=== PATIENT | female | born 1995 | race African-American/Black ===

== ENCOUNTER 2024-07-29 10:48 | Inpatient (IN) | payer MEDICAID, OTHER ==
[~2024-07-29] VITALS: Ht 165.1 cm; Wt 70.0 kg
[2024-07-29 11:09] LABS: Basophils # (auto) 0 10 ^3/uL (0-0.2); Basophils % (auto) 0.3 % (0.0-2.0); Eosinophils # (auto) 0.1 10 ^3/uL (0-0.8); Hemoglobin 9.6 g/dL (12.2-16.2); Mean Corpuscular Volume 79.9 fL (80.0-100.0)
[2024-07-29 11:11] LABS: Eosinophils % (auto) 0.7 % (0.0-7.0); Hematocrit 29.1 % (36.0-46.0); Lymphocytes # (auto) 0.9 10 ^3/uL (0.4-5.4); Lymphocytes % (auto) 10.8 % (10.0-50.0); Mean Corpuscular Hemoglobin 26.5 pg (28.0-32.0); Mean Corpuscular Hgb Conc. 33.1 g/dL (32.0-36.0); Monocytes # (auto) 0.4 10 ^3/uL (0-1.3); Monocytes % (auto) 5.5 % (0.0-12.0); Neutrophils # (auto) 6.6 10 ^3/uL (1.6-8.6); Neutrophils % (auto) 82.7 % (37.0-80.0); Red Blood Cells 3.64 10^6/uL (4.0-5.20); Red Cell Distribution Width 17.9 % (11.8-14.3); White Blood Cell 7.9 10^3/uL (4.4-10.8)
[2024-07-29 11:16] LABS: Platelet Count (auto) 846 10^3/uL (140-450)
--- NOTE | 2024-07-29 11:22 | ED.PDOC ---
History of Present Illness HPI Comments 29F presents to the ER w/ recently delivered on July 02 at [facility] and is having preeclampsia which all may be associated to the c/c of CP. Pt reports on the CP being located in the epigastric region as well as the RLQ area for the past 4 days. Pt states on also having N/V, and not being able to use the bathroom. Pt notes that the ABD and CP worsens when she is eating food. SHx of [place] Tooth Removal. Denies chills, fever, N/V/D, SOB, or other associated symptom's, modifiers, or recent injuries or sick contact at this time. Chief Complaint: Chest Pain Time Seen by MD: 11:05 Primary Care Provider: UNKNOWN Reviewed Notes: Nurses Notes, Medications, Allergies Allergies: Coded Allergies: NO KNOWN ALLERGIES (Unverified , 04/09/10) Information Source: Patient Mode of Arrival: Ambulatory Severity: Moderate Timing: Days Duration: Since onset, Days Prehospital treatment: None Past Medical History PAST MEDICAL HISTORY: Denies Surgical History (Other): [place] Tooth Removal CONSOLE MANAGER History: No Pertinent CONSOLE MANAGER History Family History Family History: Reviewed,noncontributory to illness, Unknown Social History Smoker: Non-Smoker Alcohol: Denies ETOH Use Drugs: Denies Drug Use Lives In: Home Constitutional: denies: chills, diaphoresis, fatigue, fever, malaise, sweats, weakness, others EENTM: denies: blurred vision, double vision, ear bleeding, ear discharge, ear drainage, ear pain, ear ringing, eye pain, eye redness, hearing loss, mouth pain, mouth swelling, nasal discharge, nose bleeding, nose congestion, nose pain, photophobia, tearing, throat pain, throat swelling, voice changes, others Respiratory: denies: cough, hemoptysis, orthopnea, SOB at rest, shortness of breath, SOB with excertion, stridor, wheezing, others Cardiovascular: reports: chest pain; denies: dizzy spells, diaphoresis, Dyspnea on exertion, edema, irregular heart beat, left arm pain, lightheadedness, palpitations, PND, syncope, others Gastrointestinal: reports: abdominal pain; denies: abdomen distended, blood streaked bowels, constipated, diarrhea, dysphagia, difficulty swallowing, hematemesis, melena, nausea, poor appetite, poor fluid intake, rectal bleeding, rectal pain, vomiting, others Genitourinary: denies: abnormal vagina bleeding, burning, dyspareunia, dysuria, flank pain, frequency, hematuria, incontinence, pain, , vagina discharge, urgency, others Neurological: denies: dizziness, fainting, headache, left sided numbness, left sided weakness, numbness, paresthesia, pre-existing deficit, right sided numbness, right sided weakness, seizure, speech problems, tingling, tremors, weakness, others Musculoskeletal: denies: back pain, gout, joint pain, joint swelling, muscle pain, muscle stiffness, neck pain, others Integumetry: denies: bruises, change in color, change in hair/nails, dryness, laceration, lesions, lumps, rash, wounds, others Allergic/Immunocompromised: denies: Difficulty Healing, Frequent Infections, Hives, Itching, others Hematologic/Lymphatic: denies: anemia, blood clots, easy bleeding, easy bruising, swollen glands, others Endocrine: denies: excessive hunger, excessive sweating, excessive thirst, excessive urination, flushing, intolerance to cold, intolerance to heat, unexplained weight gain, unexplained weight loss, others Psychiatric: denies: anxiety, bipolar disorder, depression, hopeless, panic disorder, schizophrenia, sleepless, suicidal, others All Other Systems: Reviewed and Negative Physical Exam Exam Comments Diffuse ABD pain General Appearance: No Apparent Distress, Normal HEENT: Normal ENT Inspection, Pharynx Normal, TMs Normal Neck: Full Range of Motion, Non-Tender, Normal, Normal Inspection Respiratory: Chest Non-Tender, Lungs Clear, No Accessory Muscle Use, No Respiratory Distress, Normal Breath Sounds Cardiovascular: No Edema, No JVD, No Murmur, No Gallop, Tachycardia Breast Exam: Deferred Gastrointestinal: Diffuse, Epigastric, No Organomegaly, Non Tender, No Pulsatile Mass, Normal Bowel Sounds, RLQ, Tenderness Genitalia: Deferred Pelvic: Deferred Rectal: Deferred Extremities: No calf tenderness, Normal capillary refill, Normal inspection, Normal range of motion, Non-tender, No pedal edema Musculoskeletal : Apperance: Normal Neurologic: Alert, endoscopy rn II-XII nml as Tested, No Motor Deficits, Normal Affect, Normal Mood, No Sensory Deficits Cerebellar Function: Normal Reflexes: Normal Skin: Dry, Normal Color, Warm Lymphatic: No Adenopathy Was a procedure done? Was a procedure done?: No Differential Dx Considerations may include: ecclampsia, HELLP syndrome, endometritis, postop pain, colitis, appendicitis, RPOC X-Ray, Labs, Meds, VS Vital Signs Date Time Temp Pulse Resp B/P (MAP) Pulse Ox O2 Delivery O2 Flow Rate FiO2 07/29/24 13:02 94 18 114/68 (83) 98 07/29/24 11:59 98.1 98 18 103/78 (86) 98 98.1 07/29/24 11:35 100 07/29/24 10:56 120 07/29/24 10:55 98.0 112 20 106/78 (87) 97 Lab Test 07/29/24 12:42 07/29/24 10:59 Range/Units Troponin I High Sensitivity < 3 L < 3 L </=34 ng/L White Blood Count 7.9 4.4-10.8 10^3/uL Red Blood Count 3.64 L 4.0-5.20 10^6/uL Hemoglobin 9.6 L 12.2-16.2 g/dL Hematocrit 29.1 L 36.0-46.0 % Mean Corpuscular Volume 79.9 L 80.0-100.0 fL Mean Corpuscular Hemoglobin 26.5 L 28.0-32.0 pg Mean Corpuscular Hemoglobin Concent 33.1 32.0-36.0 g/dL Red Cell Distribution Width 17.9 H 11.8-14.3 % Platelet Count 846 *H 140-450 10^3/uL Mean Platelet Volume 6.3 L 6.9-10.8 fL Neutrophils (%) (Auto) 82.7 H 37.0-80.0 % Lymphocytes (%) (Auto) 10.8 10.0-50.0 % Monocytes (%) (Auto) 5.5 0.0-12.0 % Eosinophils (%) (Auto) 0.7 0.0-7.0 % Basophils (%) (Auto) 0.3 0.0-2.0 % Neutrophils # (Auto) 6.6 1.6-8.6 10 ^3/uL Lymphocytes # (Auto) 0.9 0.4-5.4 10 ^3/uL Monocytes # (Auto) 0.4 0-1.3 10 ^3/uL Eosinophils # (Auto) 0.1 0-0.8 10 ^3/uL Basophils # (Auto) 0 0-0.2 10 ^3/uL Nucleated Red Blood Cells 0.0 % Platelet Estimate Markedly increased Anisocytosis (manual) Slight Microcytosis Slight Sodium Level 139 136-145 mmol/L Potassium Level 3.7 3.5-5.1 mmol/L Chloride Level 103 98-107 mmol/L Carbon Dioxide Level 26 20-31 mmol/L Anion Gap 10 5-15 Blood Urea Nitrogen 10 9-23 mg/dL Creatinine 0.75 0.550-1.02 mg/dL Glomerular Filtration Rate Calc 109 >90 mL/min BUN/Creatinine Ratio 13.3 10.0-20.0 Serum Glucose 87 74-106 mg/dL Calcium Level 10.3 8.7-10.4 mg/dL Total Bilirubin 0.6 0.2-1.0 mg/dL Aspartate Amino Transferase (AST) 17 13-40 U/L Alanine Aminotransferase (ALT) 21 7-40 U/L Alkaline Phosphatase 121 H 46-116 U/L Total Protein 7.7 5.7-8.2 g/dL Albumin 4.9 H 3.2-4.8 g/dL Lipase 28 12-53 U/L Current Medications Medications (Trade) Dose Ordered Sig/Robyn Route Start Time Stop Time Status Last Admin Sodium Chloride 1,000 ml @ 1,000 mls/hr Q1H ONCE IV 07/29/24 11:45 07/29/24 12:44 DC 07/29/24 11:45 Time of 1ST Reevaluation: 11:35 Reevaluation 1ST: Unchanged Patient Education/Counseling: Diagnosis, Treatment, Prognosis, Need For Follow Up Family Education/Counseling: Diagnosis, Treatment, Prognosis, Need For Follow Up Additional Information - I reviewed the following notes from patient's past medical encounters:06/11/11 - The following tests were ordered, and results were reviewed by me: (Labs, X- Ray, EKG): EKG, LAB, XY - I reviewed and agreed with the following test results read by other provider: X-ray, CT - I discussed treatments and results with medical personnel and:consultants, family pt presents with epigastric pain on swallowing, diffused abdominal pain. she has thrombocytosis, most likely an acute inflammatory marker, otherwise, her CT is nonspecific. appendicitis is not excluded, so she will be started on antibiotic and will have surgery consult, and be admitted for further workups Departure 1 Departure Time of Disposition: 14:49 Impression: Primary Impression: Abdominal pain Qualified Codes: R10.84 - Generalized abdominal pain Additional Impressions: Thrombocytosis Anemia Qualified Codes: D50.9 - Iron deficiency anemia, unspecified Disposition: ADMITTED INPATIENT Condition: Stable Discharged With: Self, Relative Critical Care Note Critical Care Time?: Yes (55 min-critical care time only) Critical care comment: due to concerns for deterioration of patient's condition, the care required my highest level of attention and readiness. i assessed the patient's condition, revieweed relavent documents, communicated with medical personnel, ordered the proper tests and treatments, reassed fro results and response to treatments, spoke to family and consultants and formulated a plan of care Stability Stability form required: No I personally scribed for MERNA DAVIES MD ([email or web address]) on 07/29/24 at 11:22. Electronically submitted by Hira Lentz ([email or web address]). I personally scribed for MERNA DAVIES MD ([email or web address]) on 07/29/24 at 11:37. Electronically submitted by Hira Lentz ([email or web address]). MERNA DAVIES MD Jul 29, 2024 11:22
[2024-07-29 11:23] LABS: Anisocytosis Slight; Platelet Estimate Markedly Increased
[2024-07-29 11:31] LABS: Alanine Aminotransferase 21 U/L (7-40); Anion Gap 10 (5-15); Aspartate Aminotransferase 17 U/L (13-40); BUN/Creatinine Ratio 13.3 (10.0-20.0); Bilirubin, Total 0.6 mg/dL (0.2-1.0); Blood Urea Nitrogen 10 mg/dL (9-23); Calcium 10.3 mg/dL (8.7-10.4); Carbon Dioxide 26 mmol/L (20-31); Chloride 103 mmol/L (98-107); Glucose 87 mg/dL (74-106); Potassium 3.7 mmol/L (3.5-5.1); Sodium 139 mmol/L (136-145); Total Protein 7.7 g/dL (5.7-8.2)
--- NOTE | 2024-07-29 11:31 | DVH ---
CHEST RADIOGRAPH Indication: CP Technique: Single frontal view of the chest was obtained COMPARISON: None FINDINGS: Lines and Tubes: None Lungs: Clear Pleura: No effusion. No pneumothorax. Cardiomediastinal contours: Unremarkable Bones: Unremarkable IMPRESSION: 1. No acute disease.
[2024-07-29 11:32] LABS: Albumin 4.9 g/dL (3.2-4.8); Alkaline Phosphatase 121 U/L (46-116)
[2024-07-29] MEDS: SODIUM CHLORIDE 0.9% 1,000 ML IV ONE (11:45)
[2024-07-29] MEDS: IOHEXOL 350 MG/ML 100ML IJ ONE (12:19)
--- NOTE | 2024-07-29 12:50 | DVH ---
INDICATION: epigastric pain TECHNIQUE: Multiple real-time sonographic images were obtained of the right upper quadrant. COMPARISON: None FINDINGS: Liver is normal, 15.8 cm No gallstones , common bile duct measures 6mm Normal pancreas Normal inferior vena cava No obstructive uropathy Right kidney measures 9.1 cm Anechoic structure with internal debris is noted in the right ovary. Right ovarian ultrasound recomme nded. Impression: No gallstones Right ovarian lesion with internal debris. Pelvic ultrasound recommended
--- NOTE | 2024-07-29 14:19 | DVH ---
Exam: CT CT CHEST/AB/PL W CON- IV ONLY History: POSSIBLE PE; ABDOMINAL PAIN Comparison Study: None available at time of dictation. TECHNIQUE: Multidetector CT of the chest, abdomen and pelvis with contrast. Axial, coronal and sagitt al multiplanar reformats were obtained from the axial data set by the technologist. Additional 3D maximum intensity projection images obtained and evaluated. Radiation Dose Information: CT Dose: CTDI volume is 9.54 mGy. Dose-length product is 707.14 mGy*cm FINDINGS: Chest: The thyroid gland is unremarkable. Heart size is within normal limits. No evidence of aortic aneurysm or dissection. No pulmonary embolism. Pulmonary trunk is normal in size. No significant mediastinal lymphadenopathy. No pneumothorax, pleural effusion or focal airspace consolidation. The soft tissues are unremarkable. No destructive osseous lesions are noted. Abdomen and pelvis: Mild splenomegaly. Otherwise, liver, spleen, pancreas and adrenal glands are unremarkable. 1.2 x 0.8 cm soft tissue density abutting the wall of the gallbladder adjacent to the liver with associated mi ld wall calcification. No CT evidence of acute cholecystitis. Kidneys, and ureters are unremarkable. Minimal wall thickening of the urinary bladder. Heterogeneous appearance of the uterus with 1.8 cm anterior lower uterine segment soft tissue density hypodense les ion which may represent a fibroid. The left ovary is unremarkable. There is increased vascularity ove r the expected region of the right ovary. There is a 3.1 x 3 cm cystic lesion within the right hemipe lvis with surrounding soft tissue thickening and fat stranding with the right ovary not well-visualiz ed. Complex ovarian cyst is within the differential. Mild gastric wall thickening with mild wall thickening of the proximal duodenum. Small bowel loops ar e fluid-filled and nondistended. The cecum appears to be mobile and positioned over the anterior abdo men at the level of the umbilicus with a tubular structure extending from the cecum to the area of ri ght pelvic complex cystic structure appendix is not definitely visualized. Moderate amount of fecal m aterial within the colon. Mild wall thickening of the ascending colon. Small amount of free fluid within the cul-de-sac. Mild mesenteric edema. No evidence of intraperitone al free air. No evidence of aortic aneurysm or dissection. Shotty mesenteric lymph nodes. There is diastasis recti of the umbilical region. Periumbilical Subcutaneous fat edema. Mild fat stra nding of the anterior pelvis. No evidence of acute osseous abnormalities. IMPRESSION: No evidence of acute intrathoracic abnormalities. No pulmonary embolism. There is a 3.1 x 3 cm cystic lesion within the right hemipelvis with surrounding soft tissue thickeni ng and fat stranding with the right ovary not well-visualized. Correlate for possible complex right ovarian cyst . Pelvic ultrasound is recommended for further evaluation. The appendix is also not well-visualized with mobile cecum and a tubular structure from the cecum ext ending to the cystic lesion within the right hemipelvis. Complicated acute appendicitis is within the differential. Mild wall thickening of the ascending colon which may be due to inadequate distention with colitis no t excluded. 1.2 x 0.8 cm soft tissue density abutting the wall of the gallbladder adjacent to the liver with asso ciated mild wall calcification. No CT evidence of acute cholecystitis. Right upper quadrant ultrasoun d is recommended for further evaluation. Mild wall thickening of the stomach and proximal duodenal with fluid-filled nondistended mid and dist al small bowel loops. Correlate for possible gastroenteritis. Trace amount of free fluid within the pelvis with mild mesenteric edema which may be from the right i ntrapelvic process. Diastasis recti with periumbilical nonspecific Subcutaneous fat edema. Heterogeneous appearance of the uterus with a possible lower uterine segment fibroid. Minimal wall thickening of the urinary bladder which may be due to inadequate distention. Correlatio n with urinalysis is recommended to exclude cystitis.
[2024-07-29] MEDS: cefTRIAXone 1GM/50ML D5W 50 ML IV ONE (15:11)
[2024-07-29] MEDS: MORPHINE SULFATE INJ 2 MG/ml SYRG IV ONE (15:26)
[2024-07-29] MEDS: ONDANSETRON HCL 4 MG/2 ML VIAL IV ONE (15:26)
--- NOTE | 2024-07-29 16:08 | ECG ---
[facility] Test Date: 2024-07-29 Test Time: 11:35:42 Pat Name: CRISTINA PICKARD Department: ER Room: [address] [place] [address] Gender: F Stress Analyst: SHYAM : 1995 Requested By: MONI AGUIRRE Order Number: [id number] Reading MD: Ambrosio Dick Measurements Intervals Roxana Rate: 100 P: 80 FL: 126 QRS: 74 QRSD: 83 T: 50 QT: 337 QTc: 435 Interpretive Statements Sinus tachycardia Baseline wander in lead(s) II,III,aVF,V6 Electronically Signed On 07-29-2024 20:00:04 PST by Ambrosio Dick Please click the below link to view image of tracing.
[2024-07-29 17:53] VITALS: PULSE 93; RESP 18; O2SAT 98
[2024-07-29] MEDS ORDERED: SODIUM CHLORIDE 0.9% 1,000 ML IV SCH (18:00)
[2024-07-29] MEDS ORDERED: ONDANSETRON HCL 4 MG/2 ML VIAL IV PRN (18:00)
[2024-07-29] MEDS ORDERED: ACETAMINOPHEN 325 MG TAB PO PRN (18:00)
[2024-07-29] MEDS: PANTOPRAZOLE 40 MG/10 ML VIAL INJ IV ONE (18:10)
[2024-07-29] MEDS: SODIUM CHLORIDE 0.9% 1,000 ML IV SCH (18:10)
--- NOTE | 2024-07-29 18:16 | DVHHP2 ---
History of Present Illness Reason for Visit: Abdominal pain History of Present Illness This is a 29F presents to the ER with recent delivered baby on July 02 at [facility] and is having abdominal pain associated with chest pain x4 days. She states that she was hospitalized at [facility] since July 02 and was recently discharge sometime last week with the same symptoms. She is concerned about her symptoms and would like to be further evaluated and treated. She denies experiencing these symptoms in the past, no recent injury or trauma, no recent changes in her diet, and sick contact with family and friends. She denies chills, fever, N/V/D, SOB, or other associated symptom's. The patient will be admitted under hospitalist care, the plan has been discussed with the patient in which all questions concerns have been addressed. Past Surgical History: None Family History: None Smoke: No ALCOHOL: none Drugs: None Lives: with Family Domestic Violence: Neg Review of Systems Cardiovascular: Chest Pain Gastrointestinal: Nausea, Vomiting, Abdominal Pain Allergies: Coded Allergies: NO KNOWN ALLERGIES (Unverified , 04/09/10) Medications Current Medications Medications Dose Ordered Sig/Robyn Route Start Time Stop Time Status Last Admin Dose Admin Ceftriaxone Sodium 50 ml @ 100 mls/hr DAILY@09 IV 07/30/24 09:00 UNV Sodium Chloride 1,000 ml @ 75 mls/hr [id number] IV 07/29/24 18:00 UNV Ondansetron HCl 4 mg Q4HP PRN IV 07/29/24 18:00 UNV Acetaminophen 650 mg Q6HP PRN PO 07/29/24 18:00 UNV Pantoprazole Sodium 40 mg DAILY IV 07/30/24 10:00 UNV Sodium Chloride 1,000 ml @ 75 mls/hr [id number] IV 07/29/24 18:00 UNV Ondansetron HCl 4 mg Q4HP PRN IV 07/29/24 18:00 UNV Acetaminophen 650 mg Q6HP PRN PO 07/29/24 18:00 UNV Exam Vital Signs Vital Signs Date Time Temp Pulse Resp B/P (MAP) Pulse Ox O2 Delivery O2 Flow Rate FiO2 07/29/24 17:53 93 18 98 Room Air* 0 21 07/29/24 17:52 115/72 (86) 07/29/24 11:59 98.1 98.1 General Appearance: Alert, Oriented X3, Cooperative, No acute distress HEENT: Atraumatic, PERRLA, Mucous membr. moist/pink Respiratory: Clear to auscultation, Normal air movement Cardiovascular: Regular rate, Normal S1, Normal S2, No murmurs Abdominal: Normal bowel sounds, Soft, No hepatospenomegaly, No masses Extremities: No clubbing, No cyanosis, No edema, Normal pulses, No tenderness/swelling Skin: No rashes, No breakdown Neuro: Normal gait, Normal speech, Strength at 5/5 X4 ext, Normal tone, Sensation intact, Cranial nerves 3-12 NL Psych/Mental Status: Mental status NL Labs/Xrays Labs Test 07/29/24 12:42 07/29/24 10:59 Range/Units Troponin I High Sensitivity < 3 L </=34 ng/L White Blood Count 7.9 4.4-10.8 10^3/uL Red Blood Count 3.64 L 4.0-5.20 10^6/uL Hemoglobin 9.6 L 12.2-16.2 g/dL Hematocrit 29.1 L 36.0-46.0 % Mean Corpuscular Volume 79.9 L 80.0-100.0 fL Mean Corpuscular Hemoglobin 26.5 L 28.0-32.0 pg Mean Corpuscular Hemoglobin Concent 33.1 32.0-36.0 g/dL Red Cell Distribution Width 17.9 H 11.8-14.3 % Platelet Count 846 *H 140-450 10^3/uL Mean Platelet Volume 6.3 L 6.9-10.8 fL Neutrophils (%) (Auto) 82.7 H 37.0-80.0 % Lymphocytes (%) (Auto) 10.8 10.0-50.0 % Monocytes (%) (Auto) 5.5 0.0-12.0 % Eosinophils (%) (Auto) 0.7 0.0-7.0 % Basophils (%) (Auto) 0.3 0.0-2.0 % Neutrophils # (Auto) 6.6 1.6-8.6 10 ^3/uL Lymphocytes # (Auto) 0.9 0.4-5.4 10 ^3/uL Monocytes # (Auto) 0.4 0-1.3 10 ^3/uL Eosinophils # (Auto) 0.1 0-0.8 10 ^3/uL Basophils # (Auto) 0 0-0.2 10 ^3/uL Nucleated Red Blood Cells 0.0 % Platelet Estimate Markedly increased Anisocytosis (manual) Slight Microcytosis Slight Sodium Level 139 136-145 mmol/L Potassium Level 3.7 3.5-5.1 mmol/L Chloride Level 103 98-107 mmol/L Carbon Dioxide Level 26 20-31 mmol/L Anion Gap 10 5-15 Blood Urea Nitrogen 10 9-23 mg/dL Creatinine 0.75 0.550-1.02 mg/dL Glomerular Filtration Rate Calc 109 >90 mL/min BUN/Creatinine Ratio 13.3 10.0-20.0 Serum Glucose 87 74-106 mg/dL Calcium Level 10.3 8.7-10.4 mg/dL Total Bilirubin 0.6 0.2-1.0 mg/dL Aspartate Amino Transferase (AST) 17 13-40 U/L Alanine Aminotransferase (ALT) 21 7-40 U/L Alkaline Phosphatase 121 H 46-116 U/L Total Protein 7.7 5.7-8.2 g/dL Albumin 4.9 H 3.2-4.8 g/dL Lipase 28 12-53 U/L ORDERING PHYSICIAN: MERNA DAVIES MD PROCEDURE(s): CAPIV - CT CHEST/AB/PL W CON- IV ONLY REASON: POSSIBLE PE; ABDOMINAL PAIN ORDER NUMBER(s): [id number], ACCESSION NUMBER(s): [id number] Exam: CT CT CHEST/AB/PL W CON- IV ONLY History: POSSIBLE PE; ABDOMINAL PAIN Comparison Study: None available at time of dictation. TECHNIQUE: Multidetector CT of the chest, abdomen and pelvis with contrast. Axial, coronal and sagittal multiplanar reformats were obtained from the axial data set by the technologist. Additional 3D maximum intensity projection images obtained and evaluated. Radiation Dose Information: CT Dose: CTDI volume is 9.54 mGy. Dose-length product is 707.14 mGy*cm FINDINGS: Chest: The thyroid gland is unremarkable. Heart size is within normal limits. No evidence of aortic aneurysm or dissection. No pulmonary embolism. Pulmonary trunk is normal in size. No significant mediastinal lymphadenopathy. No pneumothorax, pleural effusion or focal airspace consolidation. The soft tissues are unremarkable. No destructive osseous lesions are noted. Abdomen and pelvis: Mild splenomegaly. Otherwise, liver, spleen, pancreas and adrenal glands are unremarkable. 1.2 x 0.8 cm soft tissue density abutting the wall of the gallbladder adjacent to the liver with associated mild wall calcification. No CT evidence of acute cholecystitis. Kidneys, and ureters are unremarkable. Minimal wall thickening of the urinary bladder. Heterogeneous appearance of the uterus with 1.8 cm anterior lower uterine segment soft tissue density hypodense lesion which may represent a fibroid. The left ovary is unremarkable. There is increased vascularity over the expected region of the right ovary. There is a 3.1 x 3 cm cystic lesion within the right hemipelvis with surrounding soft tissue thickening and fat stranding with the right ovary not well-visualized. Complex ovarian cyst is within the differential. Mild gastric wall thickening with mild wall thickening of the proximal duodenum. Small bowel loops are fluid-filled and nondistended. The cecum appears to be mobile and positioned over the anterior abdomen at the level of the umbilicus with a tubular structure extending from the cecum to the area of right pelvic complex cystic structure appendix is not definitely visualized. Moderate amount of fecal material within the colon. Mild wall thickening of the ascending colon. Small amount of free fluid within the cul-de-sac. Mild mesenteric edema. No evidence of intraperitoneal free air. No evidence of aortic aneurysm or dissection. Shotty mesenteric lymph nodes. There is diastasis recti of the umbilical region. Periumbilical Subcutaneous fat edema. Mild fat stranding of the anterior pelvis. No evidence of acute osseous abnormalities. IMPRESSION: No evidence of acute intrathoracic abnormalities. No pulmonary embolism. There is a 3.1 x 3 cm cystic lesion within the right hemipelvis with surrounding soft tissue thickening and fat stranding with the right ovary not well- visualized. Correlate for possible complex right ovarian cyst . Pelvic ultrasound is recommended for further evaluation. The appendix is also not well-visualized with mobile cecum and a tubular structure from the cecum extending to the cystic lesion within the right hemipelvis. Complicated acute appendicitis is within the differential. Mild wall thickening of the ascending colon which may be due to inadequate distention with colitis not excluded. 1.2 x 0.8 cm soft tissue density abutting the wall of the gallbladder adjacent to the liver with associated mild wall calcification. No CT evidence of acute cholecystitis. Right upper quadrant ultrasound is recommended for further evaluation. Mild wall thickening of the stomach and proximal duodenal with fluid-filled nondistended mid and distal small bowel loops. Correlate for possible gastroenteritis. Trace amount of free fluid within the pelvis with mild mesenteric edema which may be from the right intrapelvic process. Diastasis recti with periumbilical nonspecific Subcutaneous fat edema. Heterogeneous appearance of the uterus with a possible lower uterine segment fibroid. Minimal wall thickening of the urinary bladder which may be due to inadequate distention. Correlation with urinalysis is recommended to exclude cystitis. ATED BY: SAKSHI MURRY DO DICTATED DATE/TIME: 07/29/241415 SIGNED BY: SAKSHI MURRY DO SIGNED DATE/TIME: 07/29/241415 CC: ORDERING PHYSICIAN: MERNA DAVIES MD PROCEDURE(s): GBUS - GALLBLADDER REASON: epigastric pain ORDER NUMBER(s): [id number], ACCESSION NUMBER(s): [id number] INDICATION: epigastric pain TECHNIQUE: Multiple real-time sonographic images were obtained of the right upper quadrant. COMPARISON: None FINDINGS: Liver is normal, 15.8 cm No gallstones , common bile duct measures 6mm Normal pancreas Normal inferior vena cava No obstructive uropathy Right kidney measures 9.1 cm Anechoic structure with internal debris is noted in the right ovary. Right ovarian ultrasound recommended. Impression: No gallstones Right ovarian lesion with internal debris. Pelvic ultrasound recommended ATED BY: IBAN RUSH MD DICTATED DATE/TIME: 07/29/247 SIGNED BY: IBAN RUSH MD SIGNED DATE/TIME: 07/29/24 1247 CC: ORDERING PHYSICIAN: MONI AGUIRRE MD PROCEDURE(s): CXRP - CHEST PORTABLE REASON: CP ORDER NUMBER(s): [id number], ACCESSION NUMBER(s): [id number] CHEST RADIOGRAPH Indication: CP Technique: Single frontal view of the chest was obtained COMPARISON: None FINDINGS: Lines and Tubes: None Lungs: Clear Pleura: No effusion. No pneumothorax. Cardiomediastinal contours: Unremarkable Bones: Unremarkable IMPRESSION: 1. No acute disease. ATED BY: IBAN RUSH MD DICTATED DATE/TIME: 07/29/24 112 SIGNED BY: IBAN RUSH MD SIGNED DATE/TIME: 07/29/241128 CC: Assessment/Plan Assessment/Plan Abdominal pain--patient complain of abdominal pain associated with chest pain and nausea x4 days Recently delivered baby on July 02 at [facility] Patient recently discharge from that facility sometime last week with the same symptoms Denies recent injury/trauma/sick contact with family and friends, changes in diet Admit to medical-surgical unit Reviewed CBC shows elevation of neutrophils and platelet count Cardiac enzyme negative x2 Lipase is normal Reviewed CTA shows questionable gastroenteritis Reviewed chest x-ray which is normal Reviewed gallbladder ultrasound which is normal Ordered pelvic ultrasound pending Consult OBGYN for evaluation and recommendation IV antiemetic as needed IV fluids IV Protonix now and daily thrombocytosis Continue to monitor Consider Hematology consult but this is likely due to recent delivery of baby DVT prophylaxis Reconcile home medication PUD prophylaxis Labs in a.m. Discussed plan of care with the patient in which all questions concerns have been addressed Plan discussed with: Patient My Orders Orders - ABILIO KHOURY [employer] Procedure Category Date Status Time Ceftriaxone 1gm/50ml PHA 07/30/24 Logged D5w (Rocephin) 09:00 Admit ADMIT 07/29/24 Transmitted 17:55 Sodium Chloride 0.9% PHA 07/29/24 Logged 18:00 Ondansetron Hcl PHA 07/29/24 Logged (Zofran) 18:00 Complete Blood Count LAB 07/30/24 Verified 04:00 Comprehensive LAB 07/30/24 Verified Metabolic Panel 04:00 Condition: Fair CRUZITO 07/29/24 In Process 17:55 Acetaminophen Tablet PHA 07/29/24 Logged (Tylenol Tablet) 18:00 Clear Liq Diet DIET 07/29/24 Transmitted Dinner Bedrest With Bathroom CRUZITO 07/29/24 In Process Privileg 17:55 Urinalysis LAB 07/29/24 Logged 17:59 Pelvic US 07/29/24 Logged 17:59 Pantoprazole PHA 07/29/24 Logged (Protonix) 18:00 Pantoprazole PHA 07/30/24 Logged (Protonix) 10:00 Admit ADMIT 07/29/24 Transmitted 17:59 Sodium Chloride 0.9% PHA 07/29/24 Logged 18:00 Ondansetron Hcl PHA 07/29/24 Logged (Zofran) 18:00 Acetaminophen Tablet PHA 07/29/24 Logged (Tylenol Tablet) 18:00 * Field Installer Consultation CONS 07/29/24 Transmitted 18:01 Date of Service: Jul 29, 2024 Billing Provider: ABILIO KHOURY Common Visit Codes: [id number] INP/OBS CARE (HIGH) ABILIO KHOURY Jul 29, 2024 18:16
--- NOTE | 2024-07-29 18:51 | DVH ---
INDICATION: Abdominal pain recent of baby TECHNIQUE: Multiple real-time grayscale transabdominal sonographic images along with color and duplex Doppler of the uterus and ovaries were obtained. COMPARISON: None FINDINGS: The uterus measures 11.6 x 7 x 6 cm cm. The endometrial stripe measures 0.75 cm. The right ovary measures 7 x 5.7 x 4.2 cm. Right ovarian volume is 8.6 cc. There is a 3.56 x 3.05 x 3.28 cm anechoic lesion in the right ovary most likely a follicle or cysts. The left ovary not visualized. Subsequent color and duplex Doppler interrogation of the ovaries demonstrated symmetric vascular flow to both ovaries, though this does not exclude the possibility of torsion due to the dual blood suppl y. IMPRESSION: 1. Enlarged right ovary with with debris and 0.5 by 3.3 cm anechoic lesion. 2. Mildly enlarged uterus
[2024-07-29 19:57] VITALS: PULSE 89; RESP 17; O2SAT 98
[2024-07-29] MEDS: MORPHINE SULFATE INJ 2 MG/ml SYRG IV PRN (20:24)
[2024-07-29 21:39] VITALS: BP 116/73; PULSE 96; RESP 18; TEMP 98.9; O2SAT 97
[2024-07-29 22:04] VITALS: BP 116/73; PULSE 96; RESP 18; TEMP 98.9; O2SAT 97
[2024-07-30 01:00] VITALS: BP 111/60; PULSE 90; RESP 16; TEMP 99.7; O2SAT 97
[2024-07-30 06:12] LABS: Alanine Aminotransferase 14 U/L (7-40); Albumin 4.3 g/dL (3.2-4.8); Alkaline Phosphatase 103 U/L (46-116); Anion Gap 10 (5-15); Aspartate Aminotransferase 13 U/L (13-40); BUN/Creatinine Ratio 10.4 (10.0-20.0); Bilirubin, Total 0.4 mg/dL (0.2-1.0); Blood Urea Nitrogen 8 mg/dL (9-23); Calcium 9.2 mg/dL (8.7-10.4); Carbon Dioxide 23 mmol/L (20-31); Chloride 107 mmol/L (98-107); Glucose 81 mg/dL (74-106); Potassium 3.5 mmol/L (3.5-5.1); Sodium 140 mmol/L (136-145); Total Protein 6.7 g/dL (5.7-8.2)
[2024-07-30 06:26] LABS: Basophils # (auto) 0 10 ^3/uL (0-0.2); Basophils % (auto) 0.2 % (0.0-2.0); Eosinophils # (auto) 0.1 10 ^3/uL (0-0.8); Eosinophils % (auto) 1.1 % (0.0-7.0); Hematocrit 25.1 % (36.0-46.0); Hemoglobin 8.1 g/dL (12.2-16.2); Lymphocytes % (auto) 13.3 % (10.0-50.0); Mean Corpuscular Hemoglobin 25.8 pg (28.0-32.0); Mean Corpuscular Hgb Conc. 32.2 g/dL (32.0-36.0); Mean Corpuscular Volume 80.3 fL (80.0-100.0); Monocytes # (auto) 0.6 10 ^3/uL (0-1.3); Monocytes % (auto) 8.2 % (0.0-12.0); Neutrophils # (auto) 5.6 10 ^3/uL (1.6-8.6); Neutrophils % (auto) 77.2 % (37.0-80.0); Nucleated Red Blood Cells % 0.1 %; Red Blood Cells 3.13 10^6/uL (4.0-5.20); White Blood Cell 7.3 10^3/uL (4.4-10.8)
[2024-07-30 06:29] LABS: Platelet Count (auto) 679 10^3/uL (140-450)
--- NOTE | 2024-07-30 07:36 | DVHINCON2 ---
Date of service: Jul 30, 2024 Reason for Consultation Abdominal pain s/p C/Section 07/02/2024 History of Present Illness HPI 29y AA female, s/p 1' C/Section 07/02/24 at [facility] C/S due to arrest of dilation 5cm, prolonged ROM, intrapartum fever w/ chorioamnionitis and pre-eclampsia Patient was readmitted one week later with N/V, Abd Pain , severe constipation and found to have post op ileus. She was once again, readmitted, 1 week later for abdominal pain and found to have a 3cm Rt ovarian cyst. She presented to ER with continued abdominal pain, chest pain and malaise. Denies constipation, last BM yesterday. Denies bloody stools or melana stools Denies Fever/Chills. Pain is located in RLQ worse with activity and with palpation. CT scan and Pelvic US suggestive of gastroenteritis and 3cm Rt Ov cyst with debris (hemorrhagic cyst?), respectively. Appendix not visualized. Home Meds No Active Prescriptions or Reported Meds Past Medical History Cardiac: HTN Pulmonary: No pertinent Hx Central Nervous System: No pertinent Hx GI: Constipation Hemotology/Oncology: Anemia NOS Hepatobiliary: No pertinent Hx Psychiatric: No pertinent Hx Musculoskeletal: No pertinent Hx Rheumotologic: No pertinent Hx Infectious Disease: No peritnent Hx ENT: No pertinent Hx Renal/: No pertinent Hx Endocrine: No pertinent Hx Dermatology: No pertinent Hx Past Surgical History: Family History: No pertinent Hx Patient Family History: Patient reports no known family medical history. Smoker: No Hx (Negative) Alocohol: Rare Drugs: None Lives with: With family Review of Systems Constitutional: Chills, Fever, Malaise Ears, Nose, & Throat: No symptom reported Eyes: No symptom reported Pulmonary/Respiratory: No symptom reported Cardiovascular: Chest Pain Gastrointestinal: Nausea, Vomiting, Abdominal Pain, Constipation, Abnormal Appetite Genitourinary: No symptom reported Musculoskeletal: No symptom reported Skin: No symptom reported Psychiatric: No symptom reported Endocrine: No symptom reported Hemotologic/Lymphatic: No symptom reported H&P Exam Vital Signs Vital Signs Date Time Temp Pulse Resp B/P (MAP) Pulse Ox O2 Delivery O2 Flow Rate FiO2 07/30/24 05:26 77 46 109/70 07/30/24 01:00 99.7 97 99.7 07/29/24 22:04 Room Air* 0 21 General Appeara: Well developed, Well nourished, Normal Appearance, Mild distress Head Exam: Normal inspection Neck Exam: Normal inspection Eye Exam: bilateral eye PERRL Mouth: Normal Inspection Pulmonary/Respiratory: Normal inspection Cardiovascular/Chest: Normal inspection, Regular rate Abdominal Exam: Soft, No masses, Other (Moderate to severe tenderness in RLQ, no rebound) Abdominal Pain Onset Location: RLQ Rectal Exam: Deferred Pelvic Exam: Not done [employer] Exam: Normal hearing, Normal speech Neuro/Mental St: Alert, Oriented Appearance: Appropriate appearance Thoughts/Psych: Normal thought pattern Skin Exam: Normal inspection Wounds Pfannenstiel incision completely healed Labs/Xrays PATIENT: CRISTINA PICKARD ACCT: [id number] UNIT: [id number] : 1995 LOC: ER ROOM / BED: / AGE / SEX: 29 / F ADM STATUS: REG ER SERVICE 1156 ORDERING PHYSICIAN: MERNA DAVIES MD PROCEDURE(s): CAPIV - CT CHEST/AB/PL W CON- IV ONLY REASON: POSSIBLE PE; ABDOMINAL PAIN ORDER NUMBER(s): [id number], ACCESSION NUMBER(s): [id number] Exam: CT CT CHEST/AB/PL W CON- IV ONLY History: POSSIBLE PE; ABDOMINAL PAIN Comparison Study: None available at time of dictation. TECHNIQUE: Multidetector CT of the chest, abdomen and pelvis with contrast. Axial, coronal and sagittal multiplanar reformats were obtained from the axial data set by the technologist. Additional 3D maximum intensity projection images obtained and evaluated. Radiation Dose Information: CT Dose: CTDI volume is 9.54 mGy. Dose-length product is 707.14 mGy*cm FINDINGS: Chest: The thyroid gland is unremarkable. Heart size is within normal limits. No evidence of aortic aneurysm or dissection. No pulmonary embolism. Pulmonary trunk is normal in size. No significant mediastinal lymphadenopathy. No pneumothorax, pleural effusion or focal airspace consolidation. The soft tissues are unremarkable. No destructive osseous lesions are noted. Abdomen and pelvis: Mild splenomegaly. Otherwise, liver, spleen, pancreas and adrenal glands are unremarkable. 1.2 x 0.8 cm soft tissue density abutting the wall of the gallbladder adjacent to the liver with associated mild wall calcification. No CT evidence of acute cholecystitis. Kidneys, and ureters are unremarkable. Minimal wall thickening of the urinary bladder. Heterogeneous appearance of the uterus with 1.8 cm anterior lower uterine segment soft tissue density hypodense lesion which may represent a fibroid. The left ovary is unremarkable. There is increased vascularity over the expected region of the right ovary. There is a 3.1 x 3 cm cystic lesion within the right hemipelvis with surrounding soft tissue thickening and fat stranding with the right ovary not well-visualized. Complex ovarian cyst is within the differential. Mild gastric wall thickening with mild wall thickening of the proximal duodenum. Small bowel loops are fluid-filled and nondistended. The cecum appears to be mobile and positioned over the anterior abdomen at the level of the umbilicus with a tubular structure extending from the cecum to the area of right pelvic complex cystic structure appendix is not definitely visualized. Moderate amount of fecal material within the colon. Mild wall thickening of the ascending colon. Small amount of free fluid within the cul-de-sac. Mild mesenteric edema. No evidence of intraperitoneal free air. No evidence of aortic aneurysm or dissection. Shotty mesenteric lymph nodes. There is diastasis recti of the umbilical region. Periumbilical Subcutaneous fat edema. Mild fat stranding of the anterior pelvis. No evidence of acute osseous a bnormalities. IMPRESSION: No evidence of acute intrathoracic abnormalities. No pulmonary embolism. There is a 3.1 x 3 cm cystic lesion within the right hemipelvis with surrounding soft tissue thickening and fat stranding with the right ovary not well-v isualized. Correlate for possible complex right ovarian cyst . Pelvic ultrasound is recommended for further evaluation. The appendix is also not well-visualized with mobile cecum and a tubular structure from the cecum extending to the cystic lesion within the right hemipelvis. Complicated acute appendicitis is within the differential. Mild wall thickening of the ascending colon which may be due to inadequate distention with colitis not excluded. 1.2 x 0.8 cm soft tissue density abutting the wall of the gallbladder adjacent to the liver with associated mild wall calcification. No CT evidence of acute cholecystitis. Right upper quadrant ultrasound is recommended for further evaluation. Mild wall thickening of the stomach and proximal duodenal with fluid-filled nondistended mid and distal small bowel loops. Correlate for possible gastroenteritis. Trace amount of free fluid within the pelvis with mild mesenteric edema which may be from the right intrapelvic process. Diastasis recti with periumbilical nonspecific Subcutaneous fat edema. Heterogeneous appearance of the uterus with a possible lower uterine segment fibroid. Minimal wall thickening of the urinary bladder which may be due to inadequate distention. Correlation with urinalysis is recommended to exclude cystitis. ATED BY: SAKSHI MURRY DO DICTATED DATE/TIME: 07/29/24 1416 PATIENT: LEONARDO PICKARDCT: [id number] UNIT: [id number] : 1995 [facility] SEX[facility] 29 / F ADM STATUS: ADM IN SERVICE 030 ORDERING PHYSICIAN: ABILIO KHOURY PROCEDURE(s): PELUS - PELVIC REASON: Abdominal pain recent of baby ORDER NUMBER(s): [id number], ACCESSION NUMBER(s): [id number] INDICATION: Abdominal pain recent of baby TECHNIQUE: Multiple real-time grayscale transabdominal sonographic images along with color and duplex Doppler of the uterus and ovaries were obtained. COMPARISON: None FINDINGS: The uterus measures 11.6 x 7 x 6 cm cm. The endometrial stripe measures 0.75 cm. The right ovary measures 7 x 5.7 x 4.2 cm. Right ovarian volume is 8.6 cc. There is a 3.56 x 3.05 x 3.28 cm anechoic lesion in the right ovary most likely a follicle or cysts. The left ovary not visualized. Subsequent color and duplex Doppler interrogation of the ovaries demonstrated symmetric vascular flow to both ovaries, though this does not exclude the possibility of torsion due to the dual blood supply. IMPRESSION: 1. Enlarged right ovary with with debris and 0.5 by 3.3 cm anechoic lesion. 2. Mildly enlarged uterus ATED BY: IBAN GARCIA Jr., DO DICTATED DATE/TIME: 07/29/24 1848 Labs Test 07/30/24 06:09 07/30/24 05:10 07/29/24 12:42 07/29/24 10:59 Range/Units White Blood Count 7.3 4.4-10.8 10^3/uL Red Blood Count 3.13 L 4.0-5.20 10^6/uL Hemoglobin 8.1 #L 12.2-16.2 g/dL Hematocrit 25.1 #L 36.0-46.0 % Mean Corpuscular Volume 80.3 80.0-100.0 fL Mean Corpuscular Hemoglobin 25.8 L 28.0-32.0 pg Mean Corpuscular Hemoglobin Concent 32.2 32.0-36.0 g/dL Red Cell Distribution Width 18.0 H 11.8-14.3 % Platelet Count 679 H 140-450 10^3/uL Mean Platelet Volume 6.1 L 6.9-10.8 fL Neutrophils (%) (Auto) 77.2 37.0-80.0 % Lymphocytes (%) (Auto) 13.3 10.0-50.0 % Monocytes (%) (Auto) 8.2 0.0-12.0 % Eosinophils (%) (Auto) 1.1 0.0-7.0 % Basophils (%) (Auto) 0.2 0.0-2.0 % Neutrophils # (Auto) 5.6 1.6-8.6 10 ^3/uL Lymphocytes # (Auto) 1.0 0.4-5.4 10 ^3/uL Monocytes # (Auto) 0.6 0-1.3 10 ^3/uL Eosinophils # (Auto) 0.1 0-0.8 10 ^3/uL Basophils # (Auto) 0 0-0.2 10 ^3/uL Nucleated Red Blood Cells 0.1 % Sodium Level 140 136-145 mmol/L Potassium Level 3.5 3.5-5.1 mmol/L Chloride Level 107 98-107 mmol/L Carbon Dioxide Level 23 20-31 mmol/L Anion Gap 10 5-15 Blood Urea Nitrogen 8 L 9-23 mg/dL Creatinine 0.77 0.550-1.02 mg/dL Glomerular Filtration Rate Calc 106 >90 mL/min BUN/Creatinine Ratio 10.4 10.0-20.0 Serum Glucose 81 74-106 mg/dL Calcium Level 9.2 8.7-10.4 mg/dL Total Bilirubin 0.4 0.2-1.0 mg/dL Aspartate Amino Transferase (AST) 13 13-40 U/L Alanine Aminotransferase (ALT) 14 7-40 U/L Alkaline Phosphatase 103 46-116 U/L Total Protein 6.7 5.7-8.2 g/dL Albumin 4.3 3.2-4.8 g/dL Troponin I High Sensitivity < 3 L </=34 ng/L Platelet Estimate Markedly increased Anisocytosis (manual) Slight Microcytosis Slight Lipase 28 12-53 U/L Assessment/Plan Admitting Diagnosis: 1. Acute on Chronic abdominal pain, r/o "complicated appendicitis" per CT scan report 2. s/p C/Section, stable 3. Rt ovarian follicular vs hemorrhagic cyst (3cm), unlikely cause of acute pain Plan Keep NPO Obtain MRI Abd/Pelvis better visualize RLQ mass/appendix Obtain General Surgery consult IV fluids Pain control Will follow Thank you for allowing me to participate in the care of this patient. Plan discussed with: Patient Date of Service: Jul 30, 2024 Billing Provider: VALE NGO DO Common Visit Codes: CONSULT ONLY Consultation Codes: [id number] CONSULT <60MIN VALE NGO DO Jul 30, 2024 07:36
[2024-07-30] MEDS: ACETAMINOPHEN 325 MG TAB PO PRN (08:26)
[2024-07-30 09:00] VITALS: BP 102/57; PULSE 72; RESP 18; TEMP 98.3; O2SAT 98
[2024-07-30] MEDS: ENOXAPARIN SOD 40 MG/0.4 ML SYRINGE SC SCH (10:00)
[2024-07-30] MEDS: cefTRIAXone 1GM/50ML D5W 50 ML IV SCH (10:16)
[2024-07-30] MEDS: PANTOPRAZOLE 40 MG/10 ML VIAL INJ IV SCH (10:16)
[2024-07-30] MEDS ORDERED: HYDROcodone-ACET 5/325MG TAB PO PRN (11:45)
[2024-07-30 13:00] VITALS: BP 110/65; PULSE 85; RESP 18; TEMP 98; O2SAT 99
[2024-07-30] MEDS ORDERED: metroNIDAZOLE 500MG/100ML 100 ML IV SCH (14:00)
--- NOTE | 2024-07-30 14:00 | DVHPN2 ---
Reviewed: Care Plan, H&P, Labs, Medications, Previous Orders, Radiology Changes from previous H/P or p: No Changes Cardiovascular: Chest Pain Gastrointestinal: Nausea, Vomiting, Abdominal Pain Objective Vitals Vital Signs Date Time Temp Pulse Resp B/P (MAP) Pulse Ox O2 Delivery O2 Flow Rate FiO2 07/30/24 13:00 98.0 85 18 110/65 (80) 99 98.0 07/30/24 08:00 Room Air* 0 21 Intake/Output Intake and Output 07/30/24 07:00 Intake Total 1335 ml Balance 1335 ml Intake Oral 210 ml IV Total 1125 ml Medications Current Medications Medications Dose Ordered Sig/Robyn Route Start Time Stop Time Status Last Admin Dose Admin Ceftriaxone Sodium 50 ml @ 100 mls/hr DAILY@09 IV 07/30/24 09:00 07/30/24 10:16 100 MLS/HR Ondansetron HCl 4 mg Q4HP PRN IV 07/29/24 18:00 Acetaminophen 650 mg Q6HP PRN PO 07/29/24 18:00 07/30/24 08:26 650 MG Pantoprazole Sodium 40 mg DAILY IV 07/30/24 10:00 07/30/24 10:16 40 MG Sodium Chloride 1,000 ml @ 75 mls/hr [id number] IV 07/29/24 18:00 07/30/24 08:28 75 MLS/HR Enoxaparin Sodium 40 mg DAILY SC 07/30/24 10:00 Morphine Sulfate 2 mg Q4HPRN PRN IV 07/29/24 20:15 07/30/24 04:56 2 MG Acetaminophen/ Hydrocodone Bitart 1 tab Q4HPRN PRN PO 07/30/24 11:45 Cancel Laboratory Results Laboratory Tests 07/30/24 05:10 07/30/24 06:09 Chemistry Test 07/30/24 05:10 Albumin 4.3 g/dL (3.2-4.8) Calcium Level 9.2 mg/dL (8.7-10.4) Total Protein 6.7 g/dL (5.7-8.2) LFT Test 07/30/24 05:10 Alanine Aminotransferase (ALT) 14 U/L (7-40) Alkaline Phosphatase 103 U/L (46-116) Aspartate Amino Transferase (AST) 13 U/L (13-40) Total Bilirubin 0.4 mg/dL (0.2-1.0) Labs and/or images reviewed: Labs reviewed by me, Image(s) reviewed by me Assessment/Plan Assessment/Plan 1. Acute on Chronic abdominal pain, r/o "complicated appendicitis" per CT scan report; consult for surgeon Dr. Joaquin Hinton and Flagyl 2. s/p C/Section, stable 3. Rt ovarian follicular vs hemorrhagic cyst (3cm), unlikely cause of acute pain: Consult by mobile phlebotomist Dr Duran appreciated Time Spent 40 minutes Plan discussed with: Patient Date of Service: Jul 30, 2024 Billing Provider: DENNIS COLIN MD Common Visit Codes: [id number] INP/OBS CARE(HIGH) DENNIS COLIN MD Jul 30, 2024 14:00
--- NOTE | 2024-07-30 16:37 | DVH ---
MRI Abdomen and pelvis, without and with IV Contrast Exam Date: 07/30/2024 03:13 PM Comparison: CT dated 07/29/2024 and ultrasound dated 07/29/2024 History: Abdominal pain, pelvic pain Technique: Multisequence multiplanar MRI images were obtained of the abomen. 20 mL of Clariscan was administered intravenously during this examination. Initial imaging is obtain ed without intravenous contrast. Findings: Liver: The liver is normal in size without focal lesions. Normal liver contour. Spleen: Unremarkable. Pancreas: The pancreas is normal in appearance without focal lesions. Gallbladder and ducts: Gallbladder is normal in appearance. The cystic duct, right and left hepatic ducts, common hepatic duct, and common bile ducts are unremarkable. The pancreatic duct is within n ormal limits. Adrenal glands: Unremarkable. Kidneys: Normal enhancement without suspicious lesions or hydronephrosis. Visualized bowel: Grossly unremarkable. Vasculature: Unremarkable. Lymphadenopathy: No evidence for lymphadenopathy. Ascites: Absent. Musculoskeletal: Bone marrow signal is normal. Pelvic organs: Uterus is unremarkable. Left ovarian follicles are present. Right ovarian cyst measures 3.1 cm. IMPRESSION: Cholelithiasis without secondary signs of cholecystitis. Right ovarian cysts possibly containing debris measures 3.1 cm.
[2024-07-30] MEDS: methylPREDNISolone SOD SUCC 125 MG/2 ML VL IV ONE (16:45)
[2024-07-30] MEDS ORDERED: diphenhdrAMINE HCL 50 MG/1 ML VL IM ONE (16:45)
[2024-07-30 17:00] VITALS: BP 108/60; PULSE 101; RESP 18; TEMP 100.7; O2SAT 98
--- NOTE | 2024-07-30 17:03 | DVHINCON2 ---
Date of service: Jul 30, 2024 Family History: Patient reports no known family medical history. Allergies: Coded Allergies: NO KNOWN ALLERGIES (Unverified , 04/09/10) Home Meds No Active Prescriptions or Reported Meds Current Medications Current Medications Medications (Trade) Dose Ordered Sig/Robyn Route PRN Reason Start Time Stop Time Status Last Admin Ceftriaxone Sodium 50 ml @ 100 mls/hr DAILY@09 IV 07/30/24 09:00 07/30/24 10:16 Sodium Chloride 1,000 ml @ 75 mls/hr [id number] IV 07/29/24 18:00 07/29/24 18:05 DC Ondansetron HCl (Zofran) 4 mg Q4HP PRN IV NAUSEA / VOMITING 07/29/24 18:00 Acetaminophen (Tylenol Tablet) 650 mg Q6HP PRN PO PAIN SCALE 1-3 OR TEMP>100.4 07/29/24 18:00 07/30/24 08:26 Pantoprazole Sodium (Protonix) 40 mg DAILY IV 07/30/24 10:00 07/30/24 10:16 Sodium Chloride 1,000 ml @ 75 mls/hr [id number] IV 07/29/24 18:00 07/30/24 08:28 Ondansetron HCl (Zofran) 4 mg Q4HP PRN IV NAUSEA / VOMITING 07/29/24 18:00 07/29/24 18:06 DC Acetaminophen (Tylenol Tablet) 650 mg Q6HP PRN PO PAIN SCALE 1-3 OR TEMP>100.4 07/29/24 18:00 07/29/24 18:06 DC Enoxaparin Sodium (Lovenox) 40 mg DAILY SC 07/30/24 10:00 Morphine Sulfate 2 mg Q4HPRN PRN IV SEVERE PAIN (7-10 PAIN SCALE) 07/29/24 20:15 07/30/24 14:55 Acetaminophen/ Hydrocodone Bitart ([place] 5/325MG Tab) 1 tab Q4HPRN PRN PO MODERATE PAIN (4-6 PAIN SCALE) 07/30/24 11:45 Cancel Metronidazole 100 ml @ 100 mls/hr Q8HR IV 07/30/24 14:00 07/30/24 14:40 DC Vital Signs Vital Signs Date Time Temp Pulse Resp B/P (MAP) Pulse Ox O2 Delivery O2 Flow Rate FiO2 07/30/24 14:55 87 16 109/66 07/30/24 13:00 98.0 99 98.0 07/30/24 08:00 Room Air* 0 21 Labs/Diagnostic Data Labs Test 07/30/24 06:09 07/30/24 05:10 07/29/24 12:42 07/29/24 10:59 Range/Units White Blood Count 7.3 4.4-10.8 10^3/uL Red Blood Count 3.13 L 4.0-5.20 10^6/uL Hemoglobin 8.1 #L 12.2-16.2 g/dL Hematocrit 25.1 #L 36.0-46.0 % Mean Corpuscular Volume 80.3 80.0-100.0 fL Mean Corpuscular Hemoglobin 25.8 L 28.0-32.0 pg Mean Corpuscular Hemoglobin Concent 32.2 32.0-36.0 g/dL Red Cell Distribution Width 18.0 H 11.8-14.3 % Platelet Count 679 H 140-450 10^3/uL Mean Platelet Volume 6.1 L 6.9-10.8 fL Neutrophils (%) (Auto) 77.2 37.0-80.0 % Lymphocytes (%) (Auto) 13.3 10.0-50.0 % Monocytes (%) (Auto) 8.2 0.0-12.0 % Eosinophils (%) (Auto) 1.1 0.0-7.0 % Basophils (%) (Auto) 0.2 0.0-2.0 % Neutrophils # (Auto) 5.6 1.6-8.6 10 ^3/uL Lymphocytes # (Auto) 1.0 0.4-5.4 10 ^3/uL Monocytes # (Auto) 0.6 0-1.3 10 ^3/uL Eosinophils # (Auto) 0.1 0-0.8 10 ^3/uL Basophils # (Auto) 0 0-0.2 10 ^3/uL Nucleated Red Blood Cells 0.1 % Sodium Level 140 136-145 mmol/L Potassium Level 3.5 3.5-5.1 mmol/L Chloride Level 107 98-107 mmol/L Carbon Dioxide Level 23 20-31 mmol/L Anion Gap 10 5-15 Blood Urea Nitrogen 8 L 9-23 mg/dL Creatinine 0.77 0.550-1.02 mg/dL Glomerular Filtration Rate Calc 106 >90 mL/min BUN/Creatinine Ratio 10.4 10.0-20.0 Serum Glucose 81 74-106 mg/dL Calcium Level 9.2 8.7-10.4 mg/dL Total Bilirubin 0.4 0.2-1.0 mg/dL Aspartate Amino Transferase (AST) 13 13-40 U/L Alanine Aminotransferase (ALT) 14 7-40 U/L Alkaline Phosphatase 103 46-116 U/L Total Protein 6.7 5.7-8.2 g/dL Albumin 4.3 3.2-4.8 g/dL Troponin I High Sensitivity < 3 L </=34 ng/L Platelet Estimate Markedly increased Anisocytosis (manual) Slight Microcytosis Slight Lipase 28 12-53 U/L Assessment [id number] LOW ABD PAIN CT SCAN NO CONFIRMING AC APPENDICITIS MRI PELVIS R/O COMPLEX OVARIAN CYST NO INDICATION FOR URGENT SURGERY CLOSE OBSERVATION DIRECTOR OF STUDENT AID EVAL INDICATED Plan discussed with: Patient LJ RM MD Jul 30, 2024 17:03
[2024-07-30] MEDS: diphenhdrAMINE HCL 50 MG/1 ML VL IV ONE (17:12)
[2024-07-30] MEDS: GADOTERATE MEG 10 MMOL/20ml INJ (0.5MMOL/ml) IV ONE (18:14)
--- NOTE | 2024-07-30 19:22 | DVHINCON2 ---
Date of service: Jul 30, [address] Salomon weinstein Reason for Consultation Abd pain History of Present Illness 29y AA female, s/p 1' C/Section 07/02/24 at [facility] C/S due to arrest of dilation 5cm, prolonged ROM, intrapartum fever w/ chorioamnionitis and pre-eclampsia Patient was readmitted one week later with N/V, Abd Pain , severe constipation and found to have post op ileus. She was once again, readmitted, 1 week later for abdominal pain and found to have a 3cm Rt ovarian cyst. She presented to ER with continued abdominal pain, chest pain and malaise. Denies constipation, last BM day prior to admissiony Denies bloody stools or melana stools. Pain is located in RLQ and lower mid abdomen worse with activity and with palpation. CT scan and Pelvic US suggestive of possible gastritis or gastroenteritis and 3cm Rt Ov cyst with debris (hemorrhagic cyst?), respectively. Appendix not visualized Past Medical History Anemia HTN Past Surgical History C section Family History: Patient reports no known family medical history. Allergies: Coded Allergies: NO KNOWN ALLERGIES (Unverified , 04/09/10) Home Meds No Active Prescriptions or Reported Meds Current Medications Current Medications Medications (Trade) Dose Ordered Sig/Robyn Route PRN Reason Start Time Stop Time Status Last Admin Ceftriaxone Sodium 50 ml @ 100 mls/hr DAILY@09 IV 07/30/24 09:00 07/30/24 10:16 Pantoprazole Sodium (Protonix) 40 mg DAILY IV 07/30/24 10:00 07/30/24 10:16 Enoxaparin Sodium (Lovenox) 40 mg DAILY SC 07/30/24 10:00 Morphine Sulfate 2 mg Q4HPRN PRN IV SEVERE PAIN (7-10 PAIN SCALE) 07/29/24 20:15 07/30/24 14:55 Acetaminophen/ Hydrocodone Bitart ([place] 5/325MG Tab) 1 tab Q4HPRN PRN PO MODERATE PAIN (4-6 PAIN SCALE) 07/30/24 11:45 Cancel Metronidazole 100 ml @ 100 mls/hr Q8HR IV 07/30/24 14:00 07/30/24 14:40 DC Vital Signs Vital Signs Date Time Temp Pulse Resp B/P (MAP) Pulse Ox O2 Delivery O2 Flow Rate FiO2 07/30/24 17:00 100.7 101 18 108/60 (76) 98 100.7 07/30/24 08:00 Room Air* 0 21 Physical Exam General Appeara: Well developed, Well nourished lady in NAD Head Exam: Normal inspection Pulmonary/Respiratory: Normal inspection Cardiovascular/Chest: Regular rate Abdominal Exam: Soft, mildly distended No masses, mild tenderness and suprapubic area BAKELITE MOLDER Exam: Normal hearing, Normal speech Neuro/Mental St: Alert, Oriented Labs/Diagnostic Data Labs Test 07/30/24 06:09 07/30/24 05:10 07/29/24 12:42 07/29/24 10:59 Range/Units White Blood Count 7.3 4.4-10.8 10^3/uL Red Blood Count 3.13 L 4.0-5.20 10^6/uL Hemoglobin 8.1 #L 12.2-16.2 g/dL Hematocrit 25.1 #L 36.0-46.0 % Mean Corpuscular Volume 80.3 80.0-100.0 fL Mean Corpuscular Hemoglobin 25.8 L 28.0-32.0 pg Mean Corpuscular Hemoglobin Concent 32.2 32.0-36.0 g/dL Red Cell Distribution Width 18.0 H 11.8-14.3 % Platelet Count 679 H 140-450 10^3/uL Mean Platelet Volume 6.1 L 6.9-10.8 fL Neutrophils (%) (Auto) 77.2 37.0-80.0 % Lymphocytes (%) (Auto) 13.3 10.0-50.0 % Monocytes (%) (Auto) 8.2 0.0-12.0 % Eosinophils (%) (Auto) 1.1 0.0-7.0 % Basophils (%) (Auto) 0.2 0.0-2.0 % Neutrophils # (Auto) 5.6 1.6-8.6 10 ^3/uL Lymphocytes # (Auto) 1.0 0.4-5.4 10 ^3/uL Monocytes # (Auto) 0.6 0-1.3 10 ^3/uL Eosinophils # (Auto) 0.1 0-0.8 10 ^3/uL Basophils # (Auto) 0 0-0.2 10 ^3/uL Nucleated Red Blood Cells 0.1 % Sodium Level 140 136-145 mmol/L Potassium Level 3.5 3.5-5.1 mmol/L Chloride Level 107 98-107 mmol/L Carbon Dioxide Level 23 20-31 mmol/L Anion Gap 10 5-15 Blood Urea Nitrogen 8 L 9-23 mg/dL Creatinine 0.77 0.550-1.02 mg/dL Glomerular Filtration Rate Calc 106 >90 mL/min BUN/Creatinine Ratio 10.4 10.0-20.0 Serum Glucose 81 74-106 mg/dL Calcium Level 9.2 8.7-10.4 mg/dL Total Bilirubin 0.4 0.2-1.0 mg/dL Aspartate Amino Transferase (AST) 13 13-40 U/L Alanine Aminotransferase (ALT) 14 7-40 U/L Alkaline Phosphatase 103 46-116 U/L Total Protein 6.7 5.7-8.2 g/dL Albumin 4.3 3.2-4.8 g/dL Troponin I High Sensitivity < 3 L </=34 ng/L Platelet Estimate Markedly increased Anisocytosis (manual) Slight Microcytosis Slight Lipase 28 12-53 U/L MRI Abd IMPRESSION: Cholelithiasis without secondary signs of cholecystitis. Right ovarian cysts possibly containing debris measures 3.1 cm. Problems(with codes): (1) Gastritis (2) Right ovarian cyst (3) Abdominal pain (4) Anemia Plan/Recommendation Plan Protonix 40 mg IV daily Carafate 1 g p.o. twice a day for possible gastritis Colace 100 mg p.o. twice a day for stool softener If there was no bowel activity consider MiraLax 17 g p.o. daily Patient is on broad-spectrum antibiotics She has been started on clear liquid diet Surgical and OBGYN consult appreciated Continue supportive care for now Patient's mother was counseled not to bring the small 4-week-old baby to the hospital but mother insists that she would like to stay with the patient in the hospital I doubt if the patient has cholelithiasis as the body of the MRI report does not confirm cholelithiasis in the gallbladder ultrasound is also negative We will request Radiology to review the MRI results and also comment on the appendix Plan discussed with: Patient, Other (Mother) ISAI RM MD Jul 30, 2024 19:22
[2024-07-30 20:00] VITALS: BP 100/56; PULSE 103; RESP 16; RESP 18; TEMP 100; O2SAT 96; O2SAT 97
--- NOTE | 2024-07-30 20:45 | DVHINCON2 ---
DATE OF CONSULTATION: 07/30/2024 HISTORY OF PRESENT ILLNESS: This patient is 29 years old, coming in with lower abdominal pain. She had a recent delivery on 07/02 at [facility]. It was a and the pain that she is having is off and on and she came to the Emergency Room and got admitted. No nausea or vomiting. No constipation or diarrhea. No hematemesis or melena. No bleeding per rectum. PAST MEDICAL HISTORY: No diabetes or hypertension. She has preeclampsia. PAST SURGICAL HISTORY: Nothing significant. PHYSICAL EXAMINATION: VITAL SIGNS: Afebrile, stable signs. HEENT: No evidence of pallor, cyanosis, or jaundice. NECK: Supple, nontender with no thyromegaly, lymphadenopathy. CHEST AND LUNGS: Clear. HEART: Within normal limits. ABDOMEN: Soft, minimally tender. No rebound. EXTREMITIES: Unremarkable. NEUROLOGIC: Intact. CLINICAL IMPRESSION: I doubt she has acute appendicitis. The CT scan is not confirming and the MRI also is not indicating possibility of appendicitis. She does have cholelithiasis with no acute cholecystitis. She had right ovarian cyst, possibly containing debris and that could be the reason for her pain, so my clinical impression is to manage it conservatively. PLAN: At this point, no indication for acute surgery and CUSTOMS PORT DIRECTOR evaluation as indicated. MD MICHELLE Johnson/KISHA/GABY TID: [id number] RECEIPT: [id number] cc: Salomon Keane MD
[2024-07-30] MEDS: SUCRALFATE 1 GM/10 ML ORAL SUSP PO SCH (21:33)
[2024-07-30] MEDS: DOCUSATE SOD 100 MG CAP PO SCH (21:33)
[2024-07-31] VITALS (7 sets, daily range): BP systolic 99–115; BP diastolic 56–74; PULSE 83–95; RESP 14–18; TEMP 98.6–100.2; O2SAT 97–100
--- NOTE | 2024-07-31 11:49 | DVHPN2 ---
Reviewed: Care Plan, H&P, Labs, Medications, Previous Orders, Radiology Changes from previous H/P or p: No Changes Cardiovascular: Chest Pain Gastrointestinal: Nausea, Vomiting, Abdominal Pain Objective Vitals Vital Signs Date Time Temp Pulse Resp B/P (MAP) Pulse Ox O2 Delivery O2 Flow Rate FiO2 07/31/24 08:30 99.9 95 16 106/59 (75) 97 99.9 07/30/24 20:00 Room Air* 0 21 Intake/Output Intake and Output 07/31/24 07:00 Intake Total 880 ml Output Total 0 ml Balance 880 ml Intake Oral 830 ml IV Total 50 ml Output Stool Total 0 ml # Voids 5 Medications Current Medications Medications Dose Ordered Sig/Robyn Route Start Time Stop Time Status Last Admin Dose Admin Ceftriaxone Sodium 50 ml @ 100 mls/hr DAILY@09 IV 07/30/24 09:00 07/31/24 09:40 100 MLS/HR Ondansetron HCl 4 mg Q4HP PRN IV 07/29/24 18:00 Acetaminophen 650 mg Q6HP PRN PO 07/29/24 18:00 07/31/24 09:42 650 MG Pantoprazole Sodium 40 mg DAILY IV 07/30/24 10:00 07/31/24 09:37 40 MG Sodium Chloride 1,000 ml @ 75 mls/hr [id number] IV 07/29/24 18:00 07/31/24 09:40 75 MLS/HR Enoxaparin Sodium 40 mg DAILY SC 07/30/24 10:00 07/31/24 09:43 40 MG Morphine Sulfate 2 mg Q4HPRN PRN IV 07/29/24 20:15 07/31/24 05:49 2 MG Acetaminophen/ Hydrocodone Bitart 1 tab Q4HPRN PRN PO 07/30/24 11:45 Cancel Docusate Sodium 100 mg BID PO 07/30/24 22:00 07/31/24 09:41 100 MG Sucralfate 1 gm BID@0600,2200 PO 07/30/24 22:00 07/31/24 05:48 1 GM Laboratory Results Laboratory Tests 07/30/24 05:10 07/30/24 06:09 Labs and/or images reviewed: Labs reviewed by me, Image(s) reviewed by me Assessment/Plan Assessment/Plan Acute on Chronic abdominal pain, acute appendicitis ruled out by negative MRI consult by surgeon Dr. Joaquin Arenas appreciated, continue Rocephin and Flagyl s/p C/Section, stable Cholelithiasis without evidence of cholecystitis by negative MRI: Consult by GI Dr. Sofia Arenas appreciated Rt ovarian follicular vs hemorrhagic cyst (3cm), unlikely cause of acute pain: Consult by ad operations intern Dr Duran appreciated Acute epigastric tightness: Pantoprazole Carafate Time Spent 40 minutes RN Faye at bedside. Plan discussed with: Patient My Orders Orders - DENNIS COLIN MD Procedure Category Date Status Time * Surgical Consult CONS 07/30/24 Transmitted 13:54 * Gi Dvh Applications Processor CONS 07/30/24 Transmitted 13:58 Date of Service: Jul 31, 2024 Billing Provider: DENNIS COLIN MD Common Visit Codes: [id number] INP/OBS CARE(HIGH) DENNIS COLIN MD Jul 31, 2024 11:49
--- NOTE | 2024-07-31 13:59 | ECG ---
[facility] Test Date: 2024-07-29 Test Time: 10:56:09 Pat Name: CRISTINA PICKARD Department: ER Room: 0239 A Gender: F Mental Health Technician: FOREST : 1995 Requested By: MONI AGUIRRE Order Number: [id number] Reading MD: Ambrosio Dick Measurements Intervals Shushan Rate: 120 P: 77 VA: 114 QRS: 59 QRSD: 92 T: -29 QT: 314 QTc: 444 Interpretive Statements Sinus tachycardia Consider right atrial enlargement Borderline repolarization abnormality Electronically Signed On 08-03-2024 10:13:40 PST by Ambrosio Dick Please click the below link to view image of tracing.
--- NOTE | 2024-07-31 14:39 | DVHPN2 ---
Subjective Progress Notes Subjective Patient w/ persistent RLQ pain. NO N/V or diarrhea. + constipation, last BM 2d ago. Pain is the same "since giving ". Had fever overnight. Still on IV antibiotics MRI pelvis/Abd did not mention appendix, but no acute cholecystitis or appendicitis per GI and Gen Surgery consultants, respectively. Imaging shows a clinically insignificant 3cm Rt ovarian cyst. I doubt ovarian torsion as pain is chronic now for several weeks. Objective PHYSICAL EXAM Physical Exam: Alert, NAD, appears comfortable Abd: soft, Non distended, No uterine tenderness. Fundus not palpable. Moderately Tender in RLQ, no rebound ext soft, neg alejandro sign Vital Signs and I&O Vital Signs Date Time Temp Pulse Resp B/P (MAP) Pulse Ox O2 Delivery O2 Flow Rate FiO2 07/31/24 12:30 99.4 83 14 115/64 (81) 97 99.4 07/31/24 08:00 Room Air* 0 21 Intake and Output 07/31/24 07:00 Intake Total 880 ml Output Total 0 ml Balance 880 ml Intake Oral 830 ml IV Total 50 ml Output Stool Total 0 ml # Voids 5 Lab results Laboratory Tests Test 07/29/24 10:59 07/29/24 12:42 07/30/24 05:10 07/30/24 06:09 Range/Units White Blood Count 7.9 7.3 4.4-10.8 10^3/uL Red Blood Count 3.64 L 3.13 L 4.0-5.20 10^6/uL Hemoglobin 9.6 L 8.1 #L 12.2-16.2 g/dL Hematocrit 29.1 L 25.1 #L 36.0-46.0 % Mean Corpuscular Volume 79.9 L 80.3 80.0-100.0 fL Mean Corpuscular Hemoglobin 26.5 L 25.8 L 28.0-32.0 pg Mean Corpuscular Hemoglobin Concent 33.1 32.2 32.0-36.0 g/dL Red Cell Distribution Width 17.9 H 18.0 H 11.8-14.3 % Platelet Count 846 *H 679 H 140-450 10^3/uL Mean Platelet Volume 6.3 L 6.1 L 6.9-10.8 fL Neutrophils (%) (Auto) 82.7 H 77.2 37.0-80.0 % Lymphocytes (%) (Auto) 10.8 13.3 10.0-50.0 % Monocytes (%) (Auto) 5.5 8.2 0.0-12.0 % Eosinophils (%) (Auto) 0.7 1.1 0.0-7.0 % Basophils (%) (Auto) 0.3 0.2 0.0-2.0 % Neutrophils # (Auto) 6.6 5.6 1.6-8.6 10 ^3/uL Lymphocytes # (Auto) 0.9 1.0 0.4-5.4 10 ^3/uL Monocytes # (Auto) 0.4 0.6 0-1.3 10 ^3/uL Eosinophils # (Auto) 0.1 0.1 0-0.8 10 ^3/uL Basophils # (Auto) 0 0 0-0.2 10 ^3/uL Nucleated Red Blood Cells 0.0 0.1 % Platelet Estimate Markedly increased Anisocytosis (manual) Slight Microcytosis Slight Sodium Level 139 140 136-145 mmol/L Potassium Level 3.7 3.5 3.5-5.1 mmol/L Chloride Level 103 107 98-107 mmol/L Carbon Dioxide Level 26 23 20-31 mmol/L Anion Gap 10 10 5-15 Blood Urea Nitrogen 10 8 L 9-23 mg/dL Creatinine 0.75 0.77 0.550-1.02 mg/dL Glomerular Filtration Rate Calc 109 106 >90 mL/min BUN/Creatinine Ratio 13.3 10.4 10.0-20.0 Serum Glucose 87 81 74-106 mg/dL Calcium Level 10.3 9.2 8.7-10.4 mg/dL Total Bilirubin 0.6 0.4 0.2-1.0 mg/dL Aspartate Amino Transferase (AST) 17 13 13-40 U/L Alanine Aminotransferase (ALT) 21 14 7-40 U/L Alkaline Phosphatase 121 H 103 46-116 U/L Troponin I High Sensitivity < 3 L < 3 L </=34 ng/L Total Protein 7.7 6.7 5.7-8.2 g/dL Albumin 4.9 H 4.3 3.2-4.8 g/dL Lipase 28 12-53 U/L Assessment and Plan ASSESSMENT AND PLAN Assessment and Plan Abdominal pain right ovarian cyst 3cm Plan: Continue conservative treatment. No acute NEWSPAPER PHOTO EDITOR intervention or surgery indicated at this time If does not improve or continues to have fevers in next 24-48 hr, would consider diagnostic laparoscopy. NEWSPAPER PHOTO EDITOR will sign off, re-consult if necessary. My orders: Orders - VALE NGO DO Mri Abd & Plevis W/Wo Cont (07/30/24 07:22) Chlamydia/Gc Amplification (07/30/24 07:37) Npo Except For Medications (07/30/24 07:37) Plan discussed with: Patient Visit Coding OBGYN Date of Service: Jul 31, 2024 Billing Provider: VALE NGO DO GREEN MARKETING ANALYST Common Visit Codes: CONSULTATION ONLY GREEN MARKETING ANALYST Consultation Codes: [id number] INPATIENT CONSULT (MOD) VALE NGO DO Jul 31, 2024 14:39
--- NOTE | 2024-07-31 16:11 | DVHPNRES ---
Progress Note Date Seen: Jul 31, 2024 Resident Creating Document: NASEEM MEYER RESIDENT Medical Necessity Reason Pt with a Central, PICC or Fol: No Subjective Review of Systems Patient continued complaining of right lower quadrant abdominal pain which is constant in nature, not associated with nausea and vomiting. Patient was complaining of fever during nighttime however at the time of evaluation she denied having fever. No any other new complaints. Patient did not have bowel movement in last one day. Objective vital signs Vital Sign Date Time Temp Pulse Resp B/P (MAP) Pulse Ox O2 Delivery O2 Flow Rate FiO2 07/31/24 12:30 99.4 83 14 115/64 (81) 97 99.4 07/31/24 08:00 Room Air* 0 21 Total Intake and Output 07/30/24 07/30/24 07/31/24 15:00 23:00 07:00 Intake Total 300 ml 500 ml 80 ml Output Total 0 ml Balance 300 ml 500 ml 80 ml medications Current Medications Medications Dose Ordered Sig/Robyn Route Start Time Stop Time Status Last Admin Dose Admin Ceftriaxone Sodium 50 ml @ 100 mls/hr DAILY@09 IV 07/30/24 09:00 07/31/24 09:40 100 MLS/HR Ondansetron HCl 4 mg Q4HP PRN IV 07/29/24 18:00 Acetaminophen 650 mg Q6HP PRN PO 07/29/24 18:00 07/31/24 09:42 650 MG Pantoprazole Sodium 40 mg DAILY IV 07/30/24 10:00 07/31/24 09:37 40 MG Sodium Chloride 1,000 ml @ 75 mls/hr [id number] IV 07/29/24 18:00 07/31/24 09:40 75 MLS/HR Enoxaparin Sodium 40 mg DAILY SC 07/30/24 10:00 07/31/24 09:43 40 MG Morphine Sulfate 2 mg Q4HPRN PRN IV 07/29/24 20:15 07/31/24 05:49 2 MG Acetaminophen/ Hydrocodone Bitart 1 tab Q4HPRN PRN PO 07/30/24 11:45 Cancel Docusate Sodium 100 mg BID PO 07/30/24 22:00 07/31/24 09:41 100 MG Sucralfate 1 gm BID@0600,2200 PO 07/30/24 22:00 07/31/24 05:48 1 GM Examination General Appearance: Cooperative. Well developed. Well nourished. NAD Head Exam: Normal inspection Neck Exam: Normal inspection. Non-tender. Normal alignment Pulmonary/Respiratory: Chest non-tender. Clear bilateral breath sounds Cardiovascular/Chest: Regular rate and rhythm. No murmurs. No JVD. Peripheral Pulses: 2+ Radial (R). 2+ Radial (L). 2+ Pedal (R). 2+ Pedal (L) Abdominal Exam: Normal bowel sounds. Soft. Mild tenderness over right lower quadrant, no rigidity, no guarding, soft abdomen. No hepatospenomegaly. No masses Ankle Exam: Negative ankle edema Lower extremities: Negative lower extremity edema Neuro/Mental Status: A&O x4. Coherent Thoughts/Psych: Normal thought pattern. Appropriate mood and affect. Good judgement and insight Appearance: In no acute distress Skin Exam: Normal inspection. Normal color. Warm. Dry laboratory and microbiology Laboratory Tests 07/30/24 06:09 07/30/24 05:10 Test 07/30/24 05:10 Range/Units Serum Glucose 81 74-106 mg/dL Problem List/Assessment/Plan Problem List/Assessment/Plan Acute gastritis Right ovarian cyst Abdominal pain Microcytic hypochromic anemia Plan/recommendation -continue Protonix 40 mg IV daily with Carafate 1 g p.o. twice daily for gastritis. -for constipation continue Colace 100 mg p.o. b.i.d., we will start MiraLax 17 g p.o. daily given patient did not have bowel movement in last two days. -given microcytic hypochromic anemia follow with iron panel, ordered ESR and CRP to check if any inflammatory/infectious etiology going on. -IV antibiotic as per primary care -advanced diet as per toleration, maintained hydration. -surgery and OBGYN consult appreciated. As per OBGYN if symptom does not improve or patient continued fever in next 24-40 over consider diagnostic laparoscopy. -continue supportive care for now, Plan discussed with: Patient, Other (RN) My Orders My Orders Orders - NASEEM MEYER Procedure Category Date Status Time Polyethylene Glycol PHA 07/31/24 Transmitted 17g Powder (Miralax 16:15 Polyethylene Glycol PHA 08/01/24 Transmitted 17g Powder (Miralax 10:00 NASEEM MEYER RESIDENT Jul 31, 2024 16:11
[2024-07-31] MEDS: POLYETHYLENE GLYCOL 17 GM PWDR PO ONE (16:51)
[2024-07-31 17:23] LABS: Erythrocyte Sedimentation Rate 108 mm/hr (0-20)
[2024-07-31 17:51] LABS: % Iron Saturation 8.3 % (15-50)
--- NOTE | 2024-07-31 20:26 | DVHPN2 ---
Progress Note Date Seen: Jul 31, 2024 Medical Necessity Reason Pt with a Central, PICC or Fol: No Objective vital signs Vital Sign Date Time Temp Pulse Resp B/P (MAP) Pulse Ox O2 Delivery O2 Flow Rate FiO2 07/31/24 16:30 99.4 91 16 106/65 (79) 97 99.4 07/31/24 08:00 Room Air* 0 21 Total Intake and Output 07/30/24 07/30/24 07/31/24 15:00 23:00 07:00 Intake Total 300 ml 500 ml 80 ml Output Total 0 ml Balance 300 ml 500 ml 80 ml medications Current Medications Medications Dose Ordered Sig/Robyn Route Start Time Stop Time Status Last Admin Dose Admin Ceftriaxone Sodium 50 ml @ 100 mls/hr DAILY@09 IV 07/30/24 09:00 07/31/24 09:40 100 MLS/HR Ondansetron HCl 4 mg Q4HP PRN IV 07/29/24 18:00 Acetaminophen 650 mg Q6HP PRN PO 07/29/24 18:00 07/31/24 19:58 650 MG Pantoprazole Sodium 40 mg DAILY IV 07/30/24 10:00 07/31/24 09:37 40 MG Sodium Chloride 1,000 ml @ 75 mls/hr [id number] IV 07/29/24 18:00 07/31/24 09:40 75 MLS/HR Enoxaparin Sodium 40 mg DAILY SC 07/30/24 10:00 07/31/24 09:43 40 MG Morphine Sulfate 2 mg Q4HPRN PRN IV 07/29/24 20:15 07/31/24 05:49 2 MG Acetaminophen/ Hydrocodone Bitart 1 tab Q4HPRN PRN PO 07/30/24 11:45 Cancel Docusate Sodium 100 mg BID PO 07/30/24 22:00 07/31/24 09:41 100 MG Sucralfate 1 gm BID@0600,2200 PO 07/30/24 22:00 07/31/24 05:48 1 GM Polyethylene Glycol 17 gm DAILY PO 08/01/24 10:00 laboratory and microbiology Laboratory Tests 07/30/24 06:09 07/30/24 05:10 Test 07/30/24 05:10 Range/Units Serum Glucose 81 74-106 mg/dL Problem List/Assessment/Plan Problem List/Assessment/Plan TEMP 99.1 VSS ABD SOFT TENDER LOWER ABD R/O INFECTED OVARIAN CYST R/O AC APPENDICITIS CONSIDER EMERGENT SURGERY BASED ON ONGOING EVAL Plan discussed with: Patient, Other LJ RM MD Jul 31, 2024 20:26
[2024-07-31] MEDS: metroNIDAZOLE 500MG/100ML 100 ML IV SCH (21:52)
[2024-07-31] MEDS: DOXYCYCLINE 100MG/100ML 100 ML IV SCH (22:57)
[2024-08-01] VITALS (7 sets, daily range): BP systolic 106–132; BP diastolic 64–76; PULSE 85–95; RESP 17–18; TEMP 97.1–99.9; O2SAT 96–100
[2024-08-01 06:33] LABS: Basophils # (auto) 0 10 ^3/uL (0-0.2); Basophils % (auto) 0.2 % (0.0-2.0); Eosinophils # (auto) 0.1 10 ^3/uL (0-0.8); Hematocrit 25.2 % (36.0-46.0); Hemoglobin 8.2 g/dL (12.2-16.2); Lymphocytes # (auto) 0.9 10 ^3/uL (0.4-5.4); Lymphocytes % (auto) 12.2 % (10.0-50.0); Mean Corpuscular Hemoglobin 25.6 pg (28.0-32.0); Mean Corpuscular Hgb Conc. 32.7 g/dL (32.0-36.0); Mean Corpuscular Volume 78.2 fL (80.0-100.0); Monocytes # (auto) 0.5 10 ^3/uL (0-1.3); Monocytes % (auto) 7.3 % (0.0-12.0); Neutrophils # (auto) 5.7 10 ^3/uL (1.6-8.6); Neutrophils % (auto) 79.3 % (37.0-80.0); Platelet Count (auto) 631 10^3/uL (140-450); Red Blood Cells 3.22 10^6/uL (4.0-5.20); Red Cell Distribution Width 17.8 % (11.8-14.3); White Blood Cell 7.1 10^3/uL (4.4-10.8)
[2024-08-01] MEDS: POLYETHYLENE GLYCOL 17 GM PWDR PO SCH (10:22)
--- NOTE | 2024-08-01 10:59 | DVHPN2 ---
Reviewed: Care Plan, H&P, Labs, Medications, Previous Orders, Radiology Changes from previous H/P or p: No Changes Cardiovascular: Chest Pain Gastrointestinal: Nausea, Vomiting, Abdominal Pain Objective Vitals Vital Signs Date Time Temp Pulse Resp B/P (MAP) Pulse Ox O2 Delivery O2 Flow Rate FiO2 08/01/24 09:00 97.1 95 17 132/72 (92) 100 97.1 07/31/24 20:00 Room Air* 0 21 Intake/Output Intake and Output 08/01/24 07:00 Intake Total 2325 ml Balance 2325 ml Intake Oral 550 ml IV Total 1775 ml # Voids 6 # Bowel Movements 1 Medications Current Medications Medications Dose Ordered Sig/Robyn Route Start Time Stop Time Status Last Admin Dose Admin Ceftriaxone Sodium 50 ml @ 100 mls/hr DAILY@09 IV 07/30/24 09:00 08/01/24 10:21 100 MLS/HR Ondansetron HCl 4 mg Q4HP PRN IV 07/29/24 18:00 Acetaminophen 650 mg Q6HP PRN PO 07/29/24 18:00 07/31/24 19:58 650 MG Pantoprazole Sodium 40 mg DAILY IV 07/30/24 10:00 08/01/24 10:22 40 MG Sodium Chloride 1,000 ml @ 75 mls/hr [id number] IV 07/29/24 18:00 07/31/24 09:40 75 MLS/HR Enoxaparin Sodium 40 mg DAILY SC 07/30/24 10:00 08/01/24 10:22 40 MG Morphine Sulfate 2 mg Q4HPRN PRN IV 07/29/24 20:15 08/01/24 03:08 2 MG Acetaminophen/ Hydrocodone Bitart 1 tab Q4HPRN PRN PO 07/30/24 11:45 Cancel Docusate Sodium 100 mg BID PO 07/30/24 22:00 08/01/24 10:22 100 MG Sucralfate 1 gm BID@0600,2200 PO 07/30/24 22:00 08/01/24 05:38 1 GM Polyethylene Glycol 17 gm DAILY PO 08/01/24 10:00 08/01/24 10:22 17 GM Metronidazole 100 ml @ 100 mls/hr BID IV 07/31/24 22:00 07/31/24 21:52 100 MLS/HR Doxycycline Hyclate 100 ml @ 50 mls/hr Q12H IV 07/31/24 21:30 07/31/24 22:57 50 MLS/HR Laboratory Results Laboratory Tests 07/30/24 05:10 08/01/24 06:02 Microbiology Microbiology Date/Time Source Procedure Growth Status 07/31/24 18:00 Voided Urine Urine Culture - Preliminary Resulted Labs and/or images reviewed: Labs reviewed by me, Image(s) reviewed by me Assessment/Plan Assessment/Plan Acute on Chronic abdominal pain, acute appendicitis ruled out by negative MRI consult by surgeon Dr. Joaquin Arenas appreciated, continue Rocephin and Flagyl s/p C/Section, stable Cholelithiasis without evidence of cholecystitis by negative MRI: Consult by GI Dr. Sofia Arenas appreciated Rt ovarian follicular vs hemorrhagic cyst (3cm), unlikely cause of acute pain: Consult by library helper Dr Duran appreciated Acute epigastric tightness: Pantoprazole Carafate Civil Rights Investigator Dr Dyer planning laparoscopy tomorrow to rule out pelvic abscess as the patient continues to be symptomatic with spiking fevers Time Spent 40 minutes RAJNI Mckinney at bedside. Plan discussed with: Patient My Orders Orders - DENNIS COLIN MD Procedure Category Date Status Time Blood Culture MIGUEL 07/31/24 In Process 12:47 Urine Bacterial MIGUEL 07/31/24 In Process Culture 12:47 Date of Service: Aug 01, 2024 Billing Provider: DENNIS COLIN MD Common Visit Codes: [id number] INP/OBS CARE(HIGH) DENNIS COLIN MD Aug 01, 2024 10:59
[2024-08-01] MEDS: ONDANSETRON HCL 4 MG/2 ML VIAL IV PRN (14:31)
[2024-08-01] MEDS ORDERED: HYDROMORPHONE HCL 1 MG/ML INJ IV PRN (15:45)
--- NOTE | 2024-08-01 15:47 | DVHPNRES ---
Progress Note Date Seen: Aug 01, 2024 Resident Creating Document: NASEEM MEYER RESIDENT Medical Necessity Reason Pt with a Central, PICC or Fol: No Subjective Review of Systems Patient continued to have abdominal pain, nausea, vomiting. Patient also had fever during nighttime, surgery and OBGYN is continuously following, plan for possible laparoscopic diagnostic study tomorrow. NPO from midnight. Patient had bowel movement yesterday. No bowel movement today. Objective vital signs Vital Sign Date Time Temp Pulse Resp B/P (MAP) Pulse Ox O2 Delivery O2 Flow Rate FiO2 08/01/24 13:00 98.5 94 17 115/70 (85) 96 98.5 08/01/24 08:00 Room Air* 0 21 Total Intake and Output 07/31/24 07/31/24 08/01/24 15:00 23:00 07:00 Intake Total 1000 ml 675 ml 650 ml Balance 1000 ml 675 ml 650 ml medications Current Medications Medications Dose Ordered Sig/Robyn Route Start Time Stop Time Status Last Admin Dose Admin Ceftriaxone Sodium 50 ml @ 100 mls/hr DAILY@09 IV 07/30/24 09:00 08/01/24 10:21 100 MLS/HR Ondansetron HCl 4 mg Q4HP PRN IV 07/29/24 18:00 08/01/24 14:31 4 MG Acetaminophen 650 mg Q6HP PRN PO 07/29/24 18:00 07/31/24 19:58 650 MG Pantoprazole Sodium 40 mg DAILY IV 07/30/24 10:00 08/01/24 10:22 40 MG Sodium Chloride 1,000 ml @ 75 mls/hr [id number] IV 07/29/24 18:00 08/01/24 14:26 75 MLS/HR Morphine Sulfate 2 mg Q4HPRN PRN IV 07/29/24 20:15 08/01/24 11:45 2 MG Acetaminophen/ Hydrocodone Bitart 1 tab Q4HPRN PRN PO 07/30/24 11:45 Cancel Docusate Sodium 100 mg BID PO 07/30/24 22:00 08/01/24 10:22 100 MG Sucralfate 1 gm BID@0600,2200 PO 07/30/24 22:00 08/01/24 05:38 1 GM Polyethylene Glycol 17 gm DAILY PO 08/01/24 10:00 08/01/24 10:22 17 GM Metronidazole 100 ml @ 100 mls/hr BID IV 07/31/24 22:00 08/01/24 12:27 100 MLS/HR Doxycycline Hyclate 100 ml @ 50 mls/hr Q12H IV 07/31/24 21:30 08/01/24 14:26 50 MLS/HR Examination General Appearance: Cooperative. Well developed. Well nourished. NAD Head Exam: Normal inspection Neck Exam: Normal inspection. Non-tender. Normal alignment Pulmonary/Respiratory: Chest non-tender. Clear bilateral breath sounds Cardiovascular/Chest: Regular rate and rhythm. No murmurs. No JVD. Peripheral Pulses: 2+ Radial (R). 2+ Radial (L). 2+ Pedal (R). 2+ Pedal (L) Abdominal Exam: Normal bowel sounds. Soft. Mild tenderness over right lower quadrant, no rigidity, no guarding, soft abdomen. No hepatospenomegaly. No masses Ankle Exam: Negative ankle edema Lower extremities: Negative lower extremity edema Neuro/Mental Status: A&O x4. Coherent Thoughts/Psych: Normal thought pattern. Appropriate mood and affect. Good judgement and insight Appearance: In no acute distress Skin Exam: Normal inspection. Normal color. Warm. Dry laboratory and microbiology Laboratory Tests 08/01/24 06:02 07/30/24 05:10 Test 07/30/24 05:10 Range/Units Serum Glucose 81 74-106 mg/dL Microbiology Date/Time Source Procedure Growth Status 07/31/24 18:00 Voided Urine Urine Culture - Preliminary Resulted 07/31/24 15:07 Blood Blood Culture - Preliminary NO GROWTH AFTER 24 HOURS OF INCUBATION. Resulted Problem List/Assessment/Plan Problem List/Assessment/Plan Acute gastritis Right ovarian cyst Abdominal pain Microcytic hypochromic anemia Plan/recommendation -continue current management GI perspective , possible diagnostic laparoscopic abdomen tomorrow by surgery/OBGYN. NPO from midnight for right lower quadrant abdominal pain. -continue Protonix 40 mg IV daily with Carafate 1 g p.o. twice daily for gastritis. -for constipation continue Colace 100 mg p.o. b.i.d., we will start MiraLax 17 g p.o. daily given patient did not have bowel movement in last two days. -given microcytic hypochromic anemia follow with iron panel, ordered ESR and CRP to check if any inflammatory/infectious etiology going on. -IV antibiotic as per primary care -advanced diet as per toleration, maintained hydration. -surgery and OBGYN consult appreciated. As per OBGYN if symptom does not improve or patient continued fever in next 24-48 over consider diagnostic laparoscopy. -continue supportive care for now, Plan discussed with: Patient, Other (RN) My Orders My Orders Orders - NASEEM MEYER Procedure Category Date Status Time Polyethylene Glycol PHA 08/01/24 In Process 17g Powder (Miralax 10:00 NASEEM MEYER RESIDENT Aug 01, 2024 15:47
[2024-08-01] MEDS: HYDROmorphone HCL 2 MG/ML VL/or syr IV PRN (17:19)
[2024-08-02] VITALS (7 sets, daily range): BP systolic 103–123; BP diastolic 65–81; PULSE 80–120; RESP 15–20; TEMP 97.5–98.6; O2SAT 97–100
[2024-08-02 05:48] LABS: Urine Bacteria FEW /hpf (None Seen); Urine Blood Negative /uL (Negative); Urine Clarity Clear (Clear); Urine Color Light-Yellow (Yellow); Urine Mucus FEW (None Seen); Urine Protein, UAD Negative (Negative); Urine Specific Gravity 1.013 (1.001-1.035); Urine Squamous Epithelial Cell FEW /hpf (<5); Urine Urobilinogen Normal (Negative); Urine WBC 6 /HPF (0-5)
[2024-08-02 06:20] LABS: INR 1.08 (0.9-1.15); Partial Thromboplastin Time 34.2 SEC (24.5-34.5); Prothrombin Time 11.4 sec (9.3-11.8)
--- NOTE | 2024-08-02 08:31 | DVHPN2 ---
Subjective Progress Notes Subjective Pain in RLQ 11/28, no fever. NO N/V. + constipation Pain not resolved with IV antibiotics and analgesics. Consented for Dx Laparoscopy today. Objective PHYSICAL EXAM Physical Exam: Alert, NAD Abd: Tender severe in RLQ, no rebound, no masses Vital Signs and I&O Vital Signs Date Time Temp Pulse Resp B/P (MAP) Pulse Ox O2 Delivery O2 Flow Rate FiO2 08/02/24 10:50 98.7 117 14 123/82 (96) 100 98.7 08/02/24 08:00 Room Air* 0 21 Intake and Output 08/02/24 07:00 Intake Total 2200 ml Balance 2200 ml Intake Oral 2000 ml IV Total 200 ml # Voids 5 Lab results Laboratory Tests Test 07/29/24 10:59 07/29/24 12:42 07/30/24 05:10 07/30/24 06:09 Range/Units White Blood Count 7.9 7.3 4.4-10.8 10^3/uL Red Blood Count 3.64 L 3.13 L 4.0-5.20 10^6/uL Hemoglobin 9.6 L 8.1 #L 12.2-16.2 g/dL Hematocrit 29.1 L 25.1 #L 36.0-46.0 % Mean Corpuscular Volume 79.9 L 80.3 80.0-100.0 fL Mean Corpuscular Hemoglobin 26.5 L 25.8 L 28.0-32.0 pg Mean Corpuscular Hemoglobin Concent 33.1 32.2 32.0-36.0 g/dL Red Cell Distribution Width 17.9 H 18.0 H 11.8-14.3 % Platelet Count 846 *H 679 H 140-450 10^3/uL Mean Platelet Volume 6.3 L 6.1 L 6.9-10.8 fL Neutrophils (%) (Auto) 82.7 H 77.2 37.0-80.0 % Lymphocytes (%) (Auto) 10.8 13.3 10.0-50.0 % Monocytes (%) (Auto) 5.5 8.2 0.0-12.0 % Eosinophils (%) (Auto) 0.7 1.1 0.0-7.0 % Basophils (%) (Auto) 0.3 0.2 0.0-2.0 % Neutrophils # (Auto) 6.6 5.6 1.6-8.6 10 ^3/uL Lymphocytes # (Auto) 0.9 1.0 0.4-5.4 10 ^3/uL Monocytes # (Auto) 0.4 0.6 0-1.3 10 ^3/uL Eosinophils # (Auto) 0.1 0.1 0-0.8 10 ^3/uL Basophils # (Auto) 0 0 0-0.2 10 ^3/uL Nucleated Red Blood Cells 0.0 0.1 % Platelet Estimate Markedly increased Anisocytosis (manual) Slight Microcytosis Slight Sodium Level 139 140 136-145 mmol/L Potassium Level 3.7 3.5 3.5-5.1 mmol/L Chloride Level 103 107 98-107 mmol/L Carbon Dioxide Level 26 23 20-31 mmol/L Anion Gap 10 10 5-15 Blood Urea Nitrogen 10 8 L 9-23 mg/dL Creatinine 0.75 0.77 0.550-1.02 mg/dL Glomerular Filtration Rate Calc 109 106 >90 mL/min BUN/Creatinine Ratio 13.3 10.4 10.0-20.0 Serum Glucose 87 81 74-106 mg/dL Calcium Level 10.3 9.2 8.7-10.4 mg/dL Total Bilirubin 0.6 0.4 0.2-1.0 mg/dL Aspartate Amino Transferase (AST) 17 13 13-40 U/L Alanine Aminotransferase (ALT) 21 14 7-40 U/L Alkaline Phosphatase 121 H 103 46-116 U/L Troponin I High Sensitivity < 3 L < 3 L </=34 ng/L Total Protein 7.7 6.7 5.7-8.2 g/dL Albumin 4.9 H 4.3 3.2-4.8 g/dL Lipase 28 12-53 U/L Test 07/31/24 15:07 07/31/24 18:00 08/01/24 06:02 08/02/24 05:25 Range/Units Erythrocyte Sedimentation Rate 108 H 0-20 mm/hr Iron Level 17 L 50-170 ug/dL Total Iron Binding Capacity 206 L 250-425 ug/dL Percent Iron Saturation 8.3 L 15-50 % C-Reactive Protein High Sensitivity 8.14 H <1.0 mg/dL Chlamydia trachomatis (STELLA) Pending Neisseria gonorrhoeae (STELLA) Pending White Blood Count 7.1 4.4-10.8 10^3/uL Red Blood Count 3.22 L 4.0-5.20 10^6/uL Hemoglobin 8.2 L 12.2-16.2 g/dL Hematocrit 25.2 L 36.0-46.0 % Mean Corpuscular Volume 78.2 L 80.0-100.0 fL Mean Corpuscular Hemoglobin 25.6 L 28.0-32.0 pg Mean Corpuscular Hemoglobin Concent 32.7 32.0-36.0 g/dL Red Cell Distribution Width 17.8 H 11.8-14.3 % Platelet Count 631 H 140-450 10^3/uL Mean Platelet Volume 6.1 L 6.9-10.8 fL Neutrophils (%) (Auto) 79.3 37.0-80.0 % Lymphocytes (%) (Auto) 12.2 10.0-50.0 % Monocytes (%) (Auto) 7.3 0.0-12.0 % Eosinophils (%) (Auto) 1.0 0.0-7.0 % Basophils (%) (Auto) 0.2 0.0-2.0 % Neutrophils # (Auto) 5.7 1.6-8.6 10 ^3/uL Lymphocytes # (Auto) 0.9 0.4-5.4 10 ^3/uL Monocytes # (Auto) 0.5 0-1.3 10 ^3/uL Eosinophils # (Auto) 0.1 0-0.8 10 ^3/uL Basophils # (Auto) 0 0-0.2 10 ^3/uL Nucleated Red Blood Cells 0.0 % Prothrombin Time 11.4 9.3-11.8 sec Prothrombin Time INR 1.08 0.9-1.15 Activated Partial Thromboplast Time 34.2 24.5-34.5 SEC Beta HCG, Quantitative 0.5 L 1.5-4.2 mIU/mL Test 08/02/24 05:30 Range/Units Urine Color Light-yellow Yellow Urine Clarity Clear Clear Urine pH 6.0 5.0-9.0 Urine Specific [place] 1.013 1.001-1.035 Urine Protein Negative Negative Urine Ketones 1+ H Negative Urine Blood Negative Negative /uL Urine Nitrite Negative Negative Urine Bilirubin Negative Negative Urine Urobilinogen Normal Negative mg/dL Urine Leukocyte Esterase Trace Negative /uL Urine RBC 3 0 - 4 /hpf Urine Microscopic WBC 6 H 0-5 /HPF Urine Squamous Epithelial Cells Few <5 /hpf Urine Bacteria Few H None Seen /hpf Urine Mucus Few None Seen Urine Glucose Normal Normal mg/dL Urine Test Negative Negative Assessment and Plan ASSESSMENT AND PLAN Assessment and Plan RLQ pain, persistant r/o Acute Appendiciitis r/o PID, TOA r/o Ovarian torsion/ruptured hemorrhagic cyst Plan: Operative laparoscopy, possible laparotomy, possible RSO, Rt Ov cystectomy, possible appendectomy. R/B/A of procedure d/w pt and informed consent obtained. My orders: Orders - VALE NGO DO Mri Abd & Plevis W/Wo Cont (07/30/24 07:22) Chlamydia/Gc Amplification (07/30/24 07:37) Doxycycline 100mg/100ml (Vibramycin) (07/31/24 21:30) Obtain Consent For Anesthesia (08/01/24 12:40) Obtain Consent For: (08/01/24 12:40) Obtain Consent For Anesthesia (08/01/24 12:40) Plan discussed with: Patient Visit Coding OBGYN Date of Service: Aug 02, 2024 Billing Provider: VALE NGO DO CONTROL OFFICER Common Visit Codes: CONSULTATION ONLY CONTROL OFFICER Consultation Codes: [id number] INPATIENT CONSULT (HIGH) VALE NGO DO Aug 02, 2024 08:31
[2024-08-02] MEDS: ceFAZolin 2 GM/D5W100ml 100 ML IV ONE (08:37)
[2024-08-02] MEDS: SUCCINYLCHOLINE CHLORIDE 20 MG/ML 10ML VIAL IV ONE (08:38)
[2024-08-02] MEDS ORDERED: fentaNYL CITRATE 100 MCG/2 ML VL ONE ×3 (08:42→10:10)
[2024-08-02] MEDS ORDERED: PROPOFOL 10 MG/ML 20 ML IV ONE (08:42)
[2024-08-02] MEDS ORDERED: ROCURONIUM 10MG/ML 10ML VIAL IV ONE (09:15)
[2024-08-02] MEDS: LIDOCAINE W/ EPINEPHRINE 1% 20ML VIAL ONE (09:34)
[2024-08-02] MEDS ORDERED: MEPERIDINE HCL (25 MG/ML) 1ML VIAL ONE ×2 (09:42→10:42)
[2024-08-02] MEDS ORDERED: SUGAMMADEX 200mg/2ml Vial (100MG/ML) IV ONE (10:34)
[2024-08-02] MEDS: BUPIVACAINE 0.5% P/F INJ 10 ML VIAL ONE (10:37)
--- NOTE | 2024-08-02 10:45 | DVHOP ---
DATE OF SURGERY: 08/02/2024 DESCRIPTION OF PROCEDURE: The patient was being operated on by Dr. Duran who encountered a right lower quadrant phlegmon and asked me to come in and help him. The phlegmon consisted of an acutely inflamed appendix and a follicular cyst in the right ovary, which on examination demonstrated appendicitis and periappendiceal infection. The infection was evacuated and cultures were submitted. The appendix was traced into the retro-ovarian space where it was densely adherent to the ovary and the cyst as well as to the posterior wall of the uterus. It was dissected bluntly and sharply and the appendix was then traced to its confluence with the cecum. At the base of the appendix at the confluence with the cecum, it was crossclamped and divided with an Endo-KAROLINA stapler equipped with vascular bernice. The appendix was removed from the field and the cyst was marsupialized. Profuse irrigation ensued. The irrigant was aspirated and a size 10 mm Fausto-Portillo drain was placed to the vicinity of the right ovary. The patient remained hemodynamically stable throughout the procedure, left the operating room following an accurate needle and sponge count. The wounds were closed using #1 double stranded PDS suture for the midline abdominal musculature and subcutaneous tissues and skin approximated using Monocryl sutures, Dermabond glue and Steri-Strips. The patient will remain in the recovery room for observation for approximately 1 hour. MD YAIMA Crandall/SCOTT TID: [id number] RECEIPT: [id number]
--- NOTE | 2024-08-02 10:56 | DVHPN2 ---
Reviewed: Care Plan, H&P, Labs, Medications, Previous Orders, Radiology Changes from previous H/P or p: No Changes Cardiovascular: Chest Pain Gastrointestinal: Nausea, Vomiting, Abdominal Pain Objective Vitals Vital Signs Date Time Temp Pulse Resp B/P (MAP) Pulse Ox O2 Delivery O2 Flow Rate FiO2 08/02/24 09:00 98.2 89 17 118/72 (87) 100 98.2 08/02/24 08:00 Room Air* 0 21 Intake/Output Intake and Output 08/02/24 07:00 Intake Total 2200 ml Balance 2200 ml Intake Oral 2000 ml IV Total 200 ml # Voids 5 Medications Current Medications Medications Dose Ordered Sig/Robyn Route Start Time Stop Time Status Last Admin Dose Admin Ceftriaxone Sodium 50 ml @ 100 mls/hr DAILY@09 IV 07/30/24 09:00 Hold 08/01/24 10:21 100 MLS/HR Acetaminophen 650 mg Q6HP PRN PO 07/29/24 18:00 08/01/24 21:47 650 MG Pantoprazole Sodium 40 mg DAILY IV 07/30/24 10:00 08/02/24 18:00 08/01/24 10:22 40 MG Acetaminophen/ Hydrocodone Bitart 1 tab Q4HPRN PRN PO 07/30/24 11:45 Cancel Docusate Sodium 100 mg BID PO 07/30/24 22:00 08/01/24 21:38 100 MG Sucralfate 1 gm BID@0600,2200 PO 07/30/24 22:00 08/01/24 21:38 1 GM Polyethylene Glycol 17 gm DAILY PO 08/01/24 10:00 08/01/24 10:22 17 GM Doxycycline Hyclate 100 ml @ 50 mls/hr Q12H IV 07/31/24 21:30 08/01/24 22:50 50 MLS/HR Hydromorphone HCl 0.5 mg Q6HP PRN IV 08/01/24 16:00 08/01/24 17:19 0.5 MG Potassium Chloride/Dextrose/ Sod Cl 1,000 ml @ 120 mls/hr Q8H20M IV 08/02/24 10:30 Cefazolin Sodium/ Dextrose 50 ml @ 50 mls/hr Q8HR IV 08/02/24 14:00 Metronidazole 100 ml @ 100 mls/hr Q8HR IV 08/02/24 14:00 Hydromorphone HCl 1 mg Q3HPRN PRN IV 08/02/24 10:30 Ondansetron HCl 4 mg Q4HPRN PRN IV 08/02/24 10:30 Pantoprazole Sodium 40 mg DAILY IV 08/03/24 10:00 Laboratory Results Laboratory Tests 07/30/24 05:10 08/01/24 06:02 Coagulation Test 08/02/24 05:25 Prothrombin Time 11.4 sec (9.3-11.8) Prothrombin Time INR 1.08 (0.9-1.15) Activated Partial Thromboplast Time 34.2 SEC (24.5-34.5) Urinalysis Test 08/02/24 05:30 Urine Color Light-yellow (Yellow) Urine Clarity Clear (Clear) Urine pH 6.0 (5.0-9.0) Urine Specific [place] 1.013 (1.001-1.035) Urine Protein Negative (Negative) Urine Ketones 1+ (Negative) H Urine Blood Negative /uL (Negative) Urine Nitrite Negative (Negative) Urine Bilirubin Negative (Negative) Urine Urobilinogen Normal mg/dL (Negative) Urine Leukocyte Esterase Trace /uL (Negative) Urine RBC 3 /hpf (0 - 4) Urine Microscopic WBC 6 /HPF (0-5) H Urine Squamous Epithelial Cells Few /hpf (<5) Urine Bacteria Few /hpf (None Seen) H Urine Mucus Few (None Seen) Urine Glucose Normal mg/dL (Normal) Urine Test Negative (Negative) Microbiology Microbiology Date/Time Source Procedure Growth Status 07/31/24 18:00 Voided Urine Urine Culture - Preliminary Resulted 07/31/24 15:07 Blood Blood Culture - Preliminary NO GROWTH AFTER 24 HOURS OF INCUBATION. Resulted Labs and/or images reviewed: Labs reviewed by me, Image(s) reviewed by me Assessment/Plan Assessment/Plan Acute on Chronic abdominal pain, acute appendicitis ruled out by negative MRI consult by surgeon Dr. Joaquin Arenas appreciated, continue Rocephin and Flagyl s/p C/Section, stable Cholelithiasis without evidence of cholecystitis by negative MRI: Consult by GI Dr. Sofia Arenas appreciated Rt ovarian follicular vs hemorrhagic cyst (3cm), versus abscess, patient getting laparotomy by Dr. Duran today Acute epigastric tightness: Pantoprazole Carafate Synchronous Motor Assembler Dr Dyer planning laparoscopy tomorrow to rule out pelvic abscess as the patient continues to be symptomatic with spiking fevers Time Spent 40 minutes RN Faye at bedside. Plan discussed with: Patient Date of Service: Aug 02, 2024 Billing Provider: DENNIS COLIN MD Common Visit Codes: [id number] INP/OBS CARE(HIGH) DENNIS COLIN MD Aug 02, 2024 10:56
[2024-08-02] MEDS ORDERED: MEPERIDINE HCL (25 MG/ML) 1ML VIAL IV PRN (11:00)
[2024-08-02] MEDS: ONDANSETRON HCL 4 MG/2 ML VIAL IV ONE (11:00)
[2024-08-02] MEDS ORDERED: ACETAMINOPHEN IV 1000 MG/100ML (10MG/ML) IV PRN (11:00)
--- NOTE | 2024-08-02 11:08 | DVHOP ---
DATE OF SURGERY: 08/02/2024 PREOPERATIVE DIAGNOSIS: Acute right lower quadrant pain. FINAL DIAGNOSES: * Acute appendicitis. * Right ovarian follicular cyst. * Right lower quadrant complex inflammatory mass involving appendix and right ovary. SURGEON: Anmol Duran DO BIAZZI NITRATOR OPERATOR: Felix Kwon NP. COIL CONNECTOR: Benjamin Mendoza MD, general surgery. ANESTHESIOLOGIST: Dmitriy Amezquita DO TYPE OF ANESTHESIA: General endotracheal. INDICATIONS FOR PROCEDURE: The patient is a 29-year-old -[place] female. She is status post approximately 6 weeks ago at an outside hospital. She had been readmitted several times at that hospital and also here at our hospital with complications of postoperative ileus and persistent right lower quadrant pain. On the day of admission, the patient had severe right lower quadrant pain and began to spike fevers. She did not improve despite conservative treatment. MRI and CT scan were inconclusive for acute appendicitis; however, there was suggestion of a right ovarian 3 cm cyst and inflammatory changes in the right lower quadrant. Therefore, due to lack of clinical improvement, the patient was consented for operative laparoscopy with possible laparotomy. The risks, benefits and alternatives to surgery were discussed with the patient and informed consent was obtained. DESCRIPTION OF FINDINGS: A enlarged uterus. Uterine cavity sounds to 10 cm. The left fallopian tube and ovary appeared normal. The large RLQ inflammatory mass complex involving the appendix and right adnexum. This mass was adherent to the right lower quadrant abdominal wall. There was purulent discharge from this mass. There was no gross evidence of malignancy. PROCEDURES: * Diagnostic laparoscopy. * Midline laparotomy with appendectomy. * Drainage of right ovarian cyst * Lysis of adhesions. * Placement of Fausto-Portillo drain. TECHNICAL PROCEDURE: After informed consent was obtained, the patient was taken to the operating room where she underwent smooth induction with general anesthesia. She was placed in dorsal lithotomy position in Dominic stirrups. The vagina, perineum and abdomen were thoroughly prepped and the patient sterilely draped. A transurethral Pike was placed. A pelvic exam was then performed under anesthesia with the above noted findings. A weighted speculum was placed in the patient's vagina. The anterior lip of the cervix was grasped with a single tooth tenaculum. Uterine cavity sounded to 10 cm. A HUMI uterine manipulator was placed transcervically and the balloon inflated. All instrumentation was removed from the patient's vagina. Attention was then placed into the patient's abdomen, where a mass could be palpated in the right lower quadrant. Therefore, decision was made to obtain laparoscopic access at Shaw's point in the left upper quadrant. An NG tube had been placed by the anesthesiologist. A 5 mm incision was made in the left upper quadrant at Shaw's point with the scalpel and a Veress needle was introduced. Intraperitoneal placement was confirmed in usual fashion. Pneumoperitoneum was obtained. A 5 mm Optiview trocar was inserted through this incision. Survey of the abdomen and pelvis revealed the above noted findings. Two additional ports were inserted to the left and right of midline under direct visualization. We attempted to dissect the mass and separate the appendix from the tube and ovary; however, there were dense adhesions and there was fixation of the inflammatory mass to the right lower quadrant that was difficult to mobilize. It was difficult to obtain a plane of safe dissection. There was pus that was expressed between the layers of the ovary and appendix. Therefore, decision was made to obtain a General Surgery consult. Dr. Mendoza came into the surgery. We converted to a midline laparotomy. A midline incision was made infraumbilically with the scalpel in usual fashion. The fascia was incised and extended superiorly and inferiorly. Blunt entry into the peritoneum was obtained and then this incision extended superiorly and inferiorly, with good visualization of underlying organs. The bowel was packed away with moist laparotomy sponges. Dr. Mendoza mobilized the appendix away from the ovary with blunt dissection. Please refer to his dictation regarding the appendectomy. In short, Dr. Mendoza placed a KAROLINA stapler across the base of the appendix and an appendectomy performed. There was no bleeding from the mesoappendix. The right fallopian tube and ovary were bluntly dissected away from its attachment to the sidewall. There was minimal bleeding noted that was controlled with cautery. The ovary had a cyst that was drained. The ovary showed periappendicitis with inflammation; however, there were no masses or bleeding from the ovary. The right ovary and fallopian tube were therefore left and not removed. The abdomen and pelvis were thoroughly irrigated with normal saline. All pedicles were inspected for hemostasis. A Fausto-Portillo drain was placed in the pelvis and brought out through the incision in the patient's left lower quadrant. All instrumentation and laps were removed from the patient's abdomen. The lap count was correct. We then proceeded to close the midline incision using #1 double looped PDS in continuous running fashion with good tissue approximation. The subcutaneous tissue was irrigated. Bleeding points controlled with cautery. The skin incision was closed in subcuticular fashion using 3-0 Monocryl. Sterile dressing was then placed over the incision. The Fausto-Portillo drain was sewn with permanent suture in the left lower quadrant. The remaining 2 abdominal laparoscopic incisions were closed with 3-0 Monocryl and a thin layer of Dermabond was placed. The uterine manipulator was removed. There was no bleeding from the cervix noted. The patient was then taken out of lithotomy position, awakened, and taken to recovery room in stable condition. INTRAOPERATIVE COMPLICATIONS: None. ESTIMATED BLOOD LOSS: 50 mL. No blood products replaced. MEDICATIONS: The patient received 2 grams of Ancef prior to skin incision. SPECIMENS: Appendix. DO KADEN Gonsalez/MARCELA TID: [id number] RECEIPT: [id number] [facility]
[2024-08-02] MEDS: HYDROmorphone HCL 2 MG/ML VL/or syr IV PRN ×2 (11:33→13:36)
[2024-08-02] MEDS: D5W/SOD CHL 0.45%/KCL 20MEQ 1,000 ML IV SCH (13:00)
[2024-08-02] MEDS: metroNIDAZOLE 500MG/100ML 100 ML IV SCH (13:36)
[2024-08-02] MEDS: ceFAZolin 2 GM/D5W50ml 50 ML IV SCH (15:40)
--- NOTE | 2024-08-02 17:36 | DVHPNRES ---
Progress Note Date Seen: Aug 02, 2024 Resident Creating Document: NASEEM MEYER RESIDENT Medical Necessity Reason Pt with a Central, PICC or Fol: No Subjective Review of Systems patient seen and examined at bed side. S/P laparotomy appendectomy. Objective vital signs Vital Sign Date Time Temp Pulse Resp B/P (MAP) Pulse Ox O2 Delivery O2 Flow Rate FiO2 08/02/24 16:54 98.1 115 19 123/81 (95) 98 98.1 08/02/24 10:50 Mask 6.0 100 Total Intake and Output 08/01/24 08/01/24 08/02/24 15:00 23:00 07:00 Intake Total 1300 ml 900 ml Balance 1300 ml 900 ml medications Current Medications Medications Dose Ordered Sig/Robyn Route Start Time Stop Time Status Last Admin Dose Admin Ceftriaxone Sodium 50 ml @ 100 mls/hr DAILY@09 IV 07/30/24 09:00 Hold 08/01/24 10:21 100 MLS/HR Acetaminophen 650 mg Q6HP PRN PO 07/29/24 18:00 08/01/24 21:47 650 MG Pantoprazole Sodium 40 mg DAILY IV 07/30/24 10:00 08/02/24 18:00 08/02/24 12:33 40 MG Acetaminophen/ Hydrocodone Bitart 1 tab Q4HPRN PRN PO 07/30/24 11:45 Cancel Docusate Sodium 100 mg BID PO 07/30/24 22:00 08/01/24 21:38 100 MG Sucralfate 1 gm BID@0600,2200 PO 07/30/24 22:00 08/01/24 21:38 1 GM Polyethylene Glycol 17 gm DAILY PO 08/01/24 10:00 08/01/24 10:22 17 GM Doxycycline Hyclate 100 ml @ 50 mls/hr Q12H IV 07/31/24 21:30 08/02/24 12:33 50 MLS/HR Hydromorphone HCl 0.5 mg Q6HP PRN IV 08/01/24 16:00 08/01/24 17:19 0.5 MG Potassium Chloride/Dextrose/ Sod Cl 1,000 ml @ 120 mls/hr Q8H20M IV 08/02/24 10:30 08/02/24 13:00 120 MLS/HR Cefazolin Sodium/ Dextrose 50 ml @ 50 mls/hr Q8HR IV 08/02/24 14:00 08/02/24 15:40 50 MLS/HR Metronidazole 100 ml @ 100 mls/hr Q8HR IV 08/02/24 14:00 08/02/24 13:36 100 MLS/HR Hydromorphone HCl 1 mg Q3HPRN PRN IV 08/02/24 10:30 08/02/24 16:51 1 MG Ondansetron HCl 4 mg Q4HPRN PRN IV 08/02/24 10:30 Pantoprazole Sodium 40 mg DAILY IV 08/03/24 10:00 Examination: GENERAL:Normal, HEENT:Normal, NECK:Normal, LUNGS:Normal, CVS:Normal, ABDOMEN:Normal, SKIN:Normal, :Normal laboratory and microbiology Laboratory Tests 08/01/24 06:02 07/30/24 05:10 Test 07/30/24 05:10 Range/Units Serum Glucose 81 74-106 mg/dL Microbiology Date/Time Source Procedure Growth Status 07/31/24 18:00 Voided Urine Urine Culture - Preliminary Resulted 07/31/24 15:07 Blood Blood Culture - Preliminary NO GROWTH AFTER 48 HOURS OF INCUBATION. Resulted Problem List/Assessment/Plan Problem List/Assessment/Plan Abdominal pain due to acute appendicitis Acute gastritis Right ovarian cyst Abdominal pain Microcytic hypochromic anemia Plan/recommendation Dr Arenas -S/P Diagnostic laparoscopy & Midline laparotomy with appendectomy and Drainage of right ovarian cyst. Clear liquid diet. Advance as tolerated. -continue Protonix 40 mg IV daily -for constipation continue Colace 100 mg p.o. b.i.d., we will start MiraLax 17 g p.o. daily given patient did not have bowel movement in last two days. -IV antibiotic as per primary care -advanced diet as per toleration, maintained hydration. -surgery and OBGYN on board. -continue supportive care for now, Plan discussed with: Patient NASEEM MEYER RESIDENT Aug 02, 2024 17:36
[2024-08-03] MEDS: DOXYCYCLINE 100MG/100ML 100 ML IV SCH (00:42)
[2024-08-03 01:00] VITALS: BP 120/79; PULSE 97; RESP 17; TEMP 97.7; O2SAT 97
[2024-08-03 03:06] LABS: Chlamydia Trachomatis, NAA Negative (Negative); Neisseria gonorrhoeae, NAA Negative (Negative)
[2024-08-03 05:00] VITALS: BP 102/66; PULSE 107; RESP 17; TEMP 97.7; O2SAT 98
[2024-08-03 05:56] LABS: Basophils # (auto) 0 10 ^3/uL (0-0.2); Basophils % (auto) 0.1 % (0.0-2.0); Eosinophils # (auto) 0 10 ^3/uL (0-0.8); Hematocrit 27.2 % (36.0-46.0); Hemoglobin 8.7 g/dL (12.2-16.2); Lymphocytes # (auto) 0.5 10 ^3/uL (0.4-5.4); Lymphocytes % (auto) 4.9 % (10.0-50.0); Mean Corpuscular Hemoglobin 25.3 pg (28.0-32.0); Monocytes # (auto) 0.5 10 ^3/uL (0-1.3); Monocytes % (auto) 4.9 % (0.0-12.0); Neutrophils # (auto) 9.9 10 ^3/uL (1.6-8.6); Neutrophils % (auto) 90.1 % (37.0-80.0); Platelet Count (auto) 645 10^3/uL (140-450); Red Blood Cells 3.45 10^6/uL (4.0-5.20); Red Cell Distribution Width 17.2 % (11.8-14.3)
[2024-08-03 06:12] LABS: Albumin 3.9 g/dL (3.2-4.8); Alkaline Phosphatase 87 U/L (46-116); Anion Gap 8 (5-15); Bilirubin, Total 0.3 mg/dL (0.2-1.0); Calcium 9.4 mg/dL (8.7-10.4); Carbon Dioxide 26 mmol/L (20-31); Chloride 104 mmol/L (98-107); Potassium 3.9 mmol/L (3.5-5.1); Sodium 138 mmol/L (136-145); Total Protein 6.2 g/dL (5.7-8.2)
[2024-08-03 06:25] LABS: Glucose 130 mg/dL (74-106)
[2024-08-03 06:26] LABS: Alanine Aminotransferase 9 U/L (7-40); Aspartate Aminotransferase 9 U/L (13-40); BUN/Creatinine Ratio 7.4 (10.0-20.0); Blood Urea Nitrogen < 5 mg/dL (9-23)
[2024-08-03] MEDS ORDERED: IBUPROFEN 600 MG TAB PO PRN (07:30)
--- NOTE | 2024-08-03 07:43 | DVHPN2 ---
Subjective Progress Notes Subjective POD#1 s/p Dx laparoscopy, open Appendectomy. RLQ inflammatory mass of acute appendicitis and ROV simple cyst S: Pain is moderate 6/10, Denies N/V or diarrhea Objective PHYSICAL EXAM Physical Exam: Alert, NAD Abd: soft, NT, ND, incisions C/D/I Ext: soft, NT, no edema J/P output minimal, drain in LLQ Vital Signs and I&O Vital Signs Date Time Temp Pulse Resp B/P (MAP) Pulse Ox O2 Delivery O2 Flow Rate FiO2 08/03/24 07:16 100 16 111/68 08/03/24 05:00 97.7 98 97.7 08/02/24 20:00 Nasal Cannula* 1 24 Intake and Output 08/03/24 07:00 Intake Total 2300 ml Output Total 975 ml Balance 1325 ml Intake Oral 600 ml IV Total 1700 ml Output Urine Total 950 ml Drainage Total 25 ml # Voids 2 Lab results Laboratory Tests Test 07/29/24 10:59 07/29/24 12:42 07/30/24 05:10 07/30/24 06:09 Range/Units White Blood Count 7.9 7.3 4.4-10.8 10^3/uL Red Blood Count 3.64 L 3.13 L 4.0-5.20 10^6/uL Hemoglobin 9.6 L 8.1 #L 12.2-16.2 g/dL Hematocrit 29.1 L 25.1 #L 36.0-46.0 % Mean Corpuscular Volume 79.9 L 80.3 80.0-100.0 fL Mean Corpuscular Hemoglobin 26.5 L 25.8 L 28.0-32.0 pg Mean Corpuscular Hemoglobin Concent 33.1 32.2 32.0-36.0 g/dL Red Cell Distribution Width 17.9 H 18.0 H 11.8-14.3 % Platelet Count 846 *H 679 H 140-450 10^3/uL Mean Platelet Volume 6.3 L 6.1 L 6.9-10.8 fL Neutrophils (%) (Auto) 82.7 H 77.2 37.0-80.0 % Lymphocytes (%) (Auto) 10.8 13.3 10.0-50.0 % Monocytes (%) (Auto) 5.5 8.2 0.0-12.0 % Eosinophils (%) (Auto) 0.7 1.1 0.0-7.0 % Basophils (%) (Auto) 0.3 0.2 0.0-2.0 % Neutrophils # (Auto) 6.6 5.6 1.6-8.6 10 ^3/uL Lymphocytes # (Auto) 0.9 1.0 0.4-5.4 10 ^3/uL Monocytes # (Auto) 0.4 0.6 0-1.3 10 ^3/uL Eosinophils # (Auto) 0.1 0.1 0-0.8 10 ^3/uL Basophils # (Auto) 0 0 0-0.2 10 ^3/uL Nucleated Red Blood Cells 0.0 0.1 % Platelet Estimate Markedly increased Anisocytosis (manual) Slight Microcytosis Slight Sodium Level 139 140 136-145 mmol/L Potassium Level 3.7 3.5 3.5-5.1 mmol/L Chloride Level 103 107 98-107 mmol/L Carbon Dioxide Level 26 23 20-31 mmol/L Anion Gap 10 10 5-15 Blood Urea Nitrogen 10 8 L 9-23 mg/dL Creatinine 0.75 0.77 0.550-1.02 mg/dL Glomerular Filtration Rate Calc 109 106 >90 mL/min BUN/Creatinine Ratio 13.3 10.4 10.0-20.0 Serum Glucose 87 81 74-106 mg/dL Calcium Level 10.3 9.2 8.7-10.4 mg/dL Total Bilirubin 0.6 0.4 0.2-1.0 mg/dL Aspartate Amino Transferase (AST) 17 13 13-40 U/L Alanine Aminotransferase (ALT) 21 14 7-40 U/L Alkaline Phosphatase 121 H 103 46-116 U/L Troponin I High Sensitivity < 3 L < 3 L </=34 ng/L Total Protein 7.7 6.7 5.7-8.2 g/dL Albumin 4.9 H 4.3 3.2-4.8 g/dL Lipase 28 12-53 U/L Test 07/31/24 15:07 07/31/24 18:00 08/01/24 06:02 08/02/24 05:25 Range/Units Erythrocyte Sedimentation Rate 108 H 0-20 mm/hr Iron Level 17 L 50-170 ug/dL Total Iron Binding Capacity 206 L 250-425 ug/dL Percent Iron Saturation 8.3 L 15-50 % C-Reactive Protein High Sensitivity 8.14 H <1.0 mg/dL Chlamydia trachomatis (STELLA) Negative Negative Neisseria gonorrhoeae (STELLA) Negative Negative White Blood Count 7.1 4.4-10.8 10^3/uL Red Blood Count 3.22 L 4.0-5.20 10^6/uL Hemoglobin 8.2 L 12.2-16.2 g/dL Hematocrit 25.2 L 36.0-46.0 % Mean Corpuscular Volume 78.2 L 80.0-100.0 fL Mean Corpuscular Hemoglobin 25.6 L 28.0-32.0 pg Mean Corpuscular Hemoglobin Concent 32.7 32.0-36.0 g/dL Red Cell Distribution Width 17.8 H 11.8-14.3 % Platelet Count 631 H 140-450 10^3/uL Mean Platelet Volume 6.1 L 6.9-10.8 fL Neutrophils (%) (Auto) 79.3 37.0-80.0 % Lymphocytes (%) (Auto) 12.2 10.0-50.0 % Monocytes (%) (Auto) 7.3 0.0-12.0 % Eosinophils (%) (Auto) 1.0 0.0-7.0 % Basophils (%) (Auto) 0.2 0.0-2.0 % Neutrophils # (Auto) 5.7 1.6-8.6 10 ^3/uL Lymphocytes # (Auto) 0.9 0.4-5.4 10 ^3/uL Monocytes # (Auto) 0.5 0-1.3 10 ^3/uL Eosinophils # (Auto) 0.1 0-0.8 10 ^3/uL Basophils # (Auto) 0 0-0.2 10 ^3/uL Nucleated Red Blood Cells 0.0 % Prothrombin Time 11.4 9.3-11.8 sec Prothrombin Time INR 1.08 0.9-1.15 Activated Partial Thromboplast Time 34.2 24.5-34.5 SEC Beta HCG, Quantitative 0.5 L 1.5-4.2 mIU/mL Test 08/02/24 05:30 08/03/24 05:32 Range/Units Urine Color Light-yellow Yellow Urine Clarity Clear Clear Urine pH 6.0 5.0-9.0 Urine Specific [place] 1.013 1.001-1.035 Urine Protein Negative Negative Urine Ketones 1+ H Negative Urine Blood Negative Negative /uL Urine Nitrite Negative Negative Urine Bilirubin Negative Negative Urine Urobilinogen Normal Negative mg/dL Urine Leukocyte Esterase Trace Negative /uL Urine RBC 3 0 - 4 /hpf Urine Microscopic WBC 6 H 0-5 /HPF Urine Squamous Epithelial Cells Few <5 /hpf Urine Bacteria Few H None Seen /hpf Urine Mucus Few None Seen Urine Glucose Normal Normal mg/dL Urine Test Negative Negative White Blood Count 11.0 #H 4.4-10.8 10^3/uL Red Blood Count 3.45 L 4.0-5.20 10^6/uL Hemoglobin 8.7 L 12.2-16.2 g/dL Hematocrit 27.2 L 36.0-46.0 % Mean Corpuscular Volume 79.0 L 80.0-100.0 fL Mean Corpuscular Hemoglobin 25.3 L 28.0-32.0 pg Mean Corpuscular Hemoglobin Concent 32.0 32.0-36.0 g/dL Red Cell Distribution Width 17.2 H 11.8-14.3 % Platelet Count 645 H 140-450 10^3/uL Mean Platelet Volume 6.2 L 6.9-10.8 fL Neutrophils (%) (Auto) 90.1 H 37.0-80.0 % Lymphocytes (%) (Auto) 4.9 L 10.0-50.0 % Monocytes (%) (Auto) 4.9 0.0-12.0 % Eosinophils (%) (Auto) 0.0 0.0-7.0 % Basophils (%) (Auto) 0.1 0.0-2.0 % Neutrophils # (Auto) 9.9 H 1.6-8.6 10 ^3/uL Lymphocytes # (Auto) 0.5 0.4-5.4 10 ^3/uL Monocytes # (Auto) 0.5 0-1.3 10 ^3/uL Eosinophils # (Auto) 0 0-0.8 10 ^3/uL Basophils # (Auto) 0 0-0.2 10 ^3/uL Nucleated Red Blood Cells 0.0 % Sodium Level 138 136-145 mmol/L Potassium Level 3.9 3.5-5.1 mmol/L Chloride Level 104 98-107 mmol/L Carbon Dioxide Level 26 20-31 mmol/L Anion Gap 8 5-15 Blood Urea Nitrogen < 5 L 9-23 mg/dL Creatinine 0.68 0.550-1.02 mg/dL Glomerular Filtration Rate Calc 119 >90 mL/min BUN/Creatinine Ratio 7.4 L 10.0-20.0 Serum Glucose 130 H 74-106 mg/dL Calcium Level 9.4 8.7-10.4 mg/dL Total Bilirubin 0.3 0.2-1.0 mg/dL Aspartate Amino Transferase (AST) 9 L 13-40 U/L Alanine Aminotransferase (ALT) 9 7-40 U/L Alkaline Phosphatase 87 46-116 U/L Total Protein 6.2 5.7-8.2 g/dL Albumin 3.9 3.2-4.8 g/dL Assessment and Plan ASSESSMENT AND PLAN Assessment and Plan POD#1 s/p open appendectomy Plan: Advance orders continue supportive care pain control D/C Pike PT to help ambulate today My orders: Orders - VALE NGO DO Mri Abd & Plevis W/Wo Cont (07/30/24 07:22) Obtain Consent For Anesthesia (08/01/24 12:40) Obtain Consent For: (08/01/24 12:40) Obtain Consent For Anesthesia (08/01/24 12:40) Docusate Sodium Capsule (Colace Capsule) (08/03/24 07:30) Ibuprofen Tablet (Motrin Tablet) (08/03/24 07:30) Hydrocodone-Acet 5/325mg Tab ([place] 5/32 (08/03/24 07:30) Discontinue Pike Catheter (08/03/24 07:26) Pt Request For Service (08/03/24 07:26) Ambulate X 4 Daily On Pod #1 (08/03/24 07:26) Plan discussed with: Patient Visit Coding OBGYN Date of Service: Aug 03, 2024 Billing Provider: VALE NGO DO MANAGER SERVICING Common Visit Codes: CONSULTATION ONLY MANAGER SERVICING Consultation Codes: [id number] INPATIENT CONSULT (MOD) VALE NGO DO Aug 03, 2024 07:43
[2024-08-03 09:00] VITALS: BP 107/68; PULSE 114; RESP 19; TEMP 98.7; O2SAT 96
[2024-08-03] MEDS: PANTOPRAZOLE 40 MG/10 ML VIAL INJ IV SCH ×2 (09:47→21:12)
--- NOTE | 2024-08-03 10:33 | DVHPN2 ---
Reviewed: Care Plan, H&P, Labs, Medications, Previous Orders, Radiology Changes from previous H/P or p: No Changes Cardiovascular: Chest Pain Gastrointestinal: Nausea, Vomiting, Abdominal Pain Objective Vitals Vital Signs Date Time Temp Pulse Resp B/P (MAP) Pulse Ox O2 Delivery O2 Flow Rate FiO2 08/03/24 09:58 114 19 107/68 08/03/24 09:00 98.7 96 98.7 08/03/24 08:00 Nasal Cannula* 1 24 Intake/Output Intake and Output 08/03/24 07:00 Intake Total 2300 ml Output Total 975 ml Balance 1325 ml Intake Oral 600 ml IV Total 1700 ml Output Urine Total 950 ml Drainage Total 25 ml # Voids 2 Medications Current Medications Medications Dose Ordered Sig/Robyn Route Start Time Stop Time Status Last Admin Dose Admin Ceftriaxone Sodium 50 ml @ 100 mls/hr DAILY@09 IV 07/30/24 09:00 Hold 08/01/24 10:21 100 MLS/HR Acetaminophen 650 mg Q6HP PRN PO 07/29/24 18:00 08/01/24 21:47 650 MG Acetaminophen/ Hydrocodone Bitart 1 tab Q4HPRN PRN PO 07/30/24 11:45 Cancel Sucralfate 1 gm BID@0600,2200 PO 07/30/24 22:00 08/03/24 06:21 1 GM Polyethylene Glycol 17 gm DAILY PO 08/01/24 10:00 08/01/24 10:22 17 GM Potassium Chloride/Dextrose/ Sod Cl 1,000 ml @ 120 mls/hr Q8H20M IV 08/02/24 10:30 08/02/24 23:00 120 MLS/HR Cefazolin Sodium/ Dextrose 50 ml @ 50 mls/hr Q8HR IV 08/02/24 14:00 08/03/24 06:21 50 MLS/HR Metronidazole 100 ml @ 100 mls/hr Q8HR IV 08/02/24 14:00 08/03/24 05:07 100 MLS/HR Hydromorphone HCl 1 mg Q3HPRN PRN IV 08/02/24 10:30 08/03/24 09:58 1 MG Ondansetron HCl 4 mg Q4HPRN PRN IV 08/02/24 10:30 Pantoprazole Sodium 40 mg DAILY IV 08/03/24 10:00 Docusate Sodium 100 mg BID PRN PO 08/03/24 07:30 Ibuprofen 600 mg Q8HP PRN PO 08/03/24 07:30 Acetaminophen/ Hydrocodone Bitart 1 tab Q4HPRN PRN PO 08/03/24 07:30 Laboratory Results Laboratory Tests 08/03/24 05:32 Chemistry Test 08/03/24 05:32 Albumin 3.9 g/dL (3.2-4.8) Calcium Level 9.4 mg/dL (8.7-10.4) Total Protein 6.2 g/dL (5.7-8.2) LFT Test 08/03/24 05:32 Alanine Aminotransferase (ALT) 9 U/L (7-40) Alkaline Phosphatase 87 U/L (46-116) Aspartate Amino Transferase (AST) 9 U/L (13-40) L Total Bilirubin 0.3 mg/dL (0.2-1.0) Urinalysis Test 08/02/24 05:30 Urine Color Light-yellow (Yellow) Urine Clarity Clear (Clear) Urine pH 6.0 (5.0-9.0) Urine Specific [place] 1.013 (1.001-1.035) Urine Protein Negative (Negative) Urine Ketones 1+ (Negative) H Urine Blood Negative /uL (Negative) Urine Nitrite Negative (Negative) Urine Bilirubin Negative (Negative) Urine Urobilinogen Normal mg/dL (Negative) Urine Leukocyte Esterase Trace /uL (Negative) Urine RBC 3 /hpf (0 - 4) Urine Microscopic WBC 6 /HPF (0-5) H Urine Squamous Epithelial Cells Few /hpf (<5) Urine Bacteria Few /hpf (None Seen) H Urine Mucus Few (None Seen) Urine Glucose Normal mg/dL (Normal) Urine Test Negative (Negative) Microbiology Microbiology Date/Time Source Procedure Growth Status 07/31/24 18:00 Voided Urine Urine Culture - Final Complete 07/31/24 15:07 Blood Blood Culture - Preliminary NO GROWTH AFTER 48 HOURS OF INCUBATION. Resulted Labs and/or images reviewed: Labs reviewed by me, Image(s) reviewed by me Assessment/Plan Assessment/Plan Acute appendicitis status post diagnostic laparoscopy, midline laparotomy, appendectomy, drainage of right ovarian cyst lysis of adhesions and placement of GWYN drain on 08/02/[address] information [employer] internship Dr Duran along with surgeon Dr. Mendoza, on Ancef and Flagyl Recent Right ovarian follicular cyst 3 cm status post drainage by information technology internship GERD: Pantoprazole and Carafate Time spent 45 minutes Plan discussed with: Patient Date of Service: Aug 03, 2024 Billing Provider: DENNIS COLIN MD Common Visit Codes: [id number] INP/OBS CARE(HIGH) DENNIS COLIN MD Aug 03, 2024 10:33
--- NOTE | 2024-08-03 10:52 | DVHPNRES ---
Progress Note Date Seen: Aug 03, 2024 Resident Creating Document: NASEEM MEYER RESIDENT Medical Necessity Reason Pt with a Central, PICC or Fol: No Subjective Review of Systems patient seen and examined at bed side. S/P laparotomy appendectomy. continue to have appropriate abdominal pain, no fever, N/V, diarrhea, tolerating diet. Objective vital signs Vital Sign Date Time Temp Pulse Resp B/P (MAP) Pulse Ox O2 Delivery O2 Flow Rate FiO2 08/03/24 09:58 114 19 107/68 08/03/24 09:00 98.7 96 98.7 08/03/24 08:00 Nasal Cannula* 1 24 Total Intake and Output 08/02/24 08/02/24 08/03/24 15:00 23:00 07:00 Intake Total 300 ml 1450 ml 550 ml Output Total 25 ml 950 ml Balance 275 ml 1450 ml -400 ml medications Current Medications Medications Dose Ordered Sig/Robyn Route Start Time Stop Time Status Last Admin Dose Admin Ceftriaxone Sodium 50 ml @ 100 mls/hr DAILY@09 IV 07/30/24 09:00 Hold 08/01/24 10:21 100 MLS/HR Acetaminophen 650 mg Q6HP PRN PO 07/29/24 18:00 08/01/24 21:47 650 MG Acetaminophen/ Hydrocodone Bitart 1 tab Q4HPRN PRN PO 07/30/24 11:45 Cancel Sucralfate 1 gm BID@0600,2200 PO 07/30/24 22:00 08/03/24 06:21 1 GM Polyethylene Glycol 17 gm DAILY PO 08/01/24 10:00 08/01/24 10:22 17 GM Potassium Chloride/Dextrose/ Sod Cl 1,000 ml @ 120 mls/hr Q8H20M IV 08/02/24 10:30 08/02/24 23:00 120 MLS/HR Cefazolin Sodium/ Dextrose 50 ml @ 50 mls/hr Q8HR IV 08/02/24 14:00 08/03/24 06:21 50 MLS/HR Metronidazole 100 ml @ 100 mls/hr Q8HR IV 08/02/24 14:00 08/03/24 05:07 100 MLS/HR Hydromorphone HCl 1 mg Q3HPRN PRN IV 08/02/24 10:30 08/03/24 09:58 1 MG Ondansetron HCl 4 mg Q4HPRN PRN IV 08/02/24 10:30 Pantoprazole Sodium 40 mg DAILY IV 08/03/24 10:00 Docusate Sodium 100 mg BID PRN PO 08/03/24 07:30 Ibuprofen 600 mg Q8HP PRN PO 08/03/24 07:30 Acetaminophen/ Hydrocodone Bitart 1 tab Q4HPRN PRN PO 08/03/24 07:30 Examination: GENERAL:Normal, HEENT:Normal, LUNGS:Normal, CVS:Normal, ABDOMEN:Abnormal (appropritate ab pain, s/p skin incision, no pus. presence of bowel soound) laboratory and microbiology Laboratory Tests 08/03/24 05:32 Test 08/03/24 05:32 Range/Units Serum Glucose 130 H 74-106 mg/dL Microbiology Date/Time Source Procedure Growth Status 07/31/24 18:00 Voided Urine Urine Culture - Final Complete 07/31/24 15:07 Blood Blood Culture - Preliminary NO GROWTH AFTER 48 HOURS OF INCUBATION. Resulted Problem List/Assessment/Plan Problem List/Assessment/Plan Abdominal pain due to acute appendicitis Acute gastritis Right ovarian cyst Abdominal pain Microcytic hypochromic anemia Plan/recommendation Dr Arenas -S/P Diagnostic laparoscopy & Midline laparotomy with appendectomy and Drainage of right ovarian cyst. Clear liquid diet. Advance as tolerated. continue current management -continue Protonix 40 mg IV daily -for constipation continue Colace 100 mg p.o. b.i.d., we will start MiraLax 17 g p.o. daily given patient did not have bowel movement in last two days. -IV antibiotic as per primary care -advanced diet as per toleration, maintained hydration. -surgery and OBGYN on board. -continue supportive care for now, Plan discussed with: Patient, Other (RN) NASEEM MEYER RESIDENT Aug 03, 2024 10:52
[2024-08-03] MEDS: HYDROcodone-ACET 5/325MG TAB PO PRN (12:28)
--- NOTE | 2024-08-03 14:19 | DVHPN2 ---
Progress Note Date Seen: Aug 03, 2024 Medical Necessity Reason Pt with a Central, PICC or Fol: No Subjective Review of Systems: HEENT:Normal, CVS:Normal, RESPIRATORY:Normal, GI:Normal, :Normal, MSK:Normal, NEURO:Normal Objective vital signs Vital Sign Date Time Temp Pulse Resp B/P (MAP) Pulse Ox O2 Delivery O2 Flow Rate FiO2 08/03/24 14:00 85 18 110/78 08/03/24 09:00 98.7 96 98.7 08/03/24 08:00 Nasal Cannula* 1 24 Total Intake and Output 08/02/24 08/02/24 08/03/24 15:00 23:00 07:00 Intake Total 300 ml 1450 ml 550 ml Output Total 25 ml 950 ml Balance 275 ml 1450 ml -400 ml medications Current Medications Medications Dose Ordered Sig/Robyn Route Start Time Stop Time Status Last Admin Dose Admin Acetaminophen 650 mg Q6HP PRN PO 07/29/24 18:00 08/01/24 21:47 650 MG Acetaminophen/ Hydrocodone Bitart 1 tab Q4HPRN PRN PO 07/30/24 11:45 Cancel Sucralfate 1 gm BID@0600,2200 PO 07/30/24 22:00 08/03/24 06:21 1 GM Polyethylene Glycol 17 gm DAILY PO 08/01/24 10:00 08/01/24 10:22 17 GM Potassium Chloride/Dextrose/ Sod Cl 1,000 ml @ 120 mls/hr Q8H20M IV 08/02/24 10:30 08/02/24 23:00 120 MLS/HR Cefazolin Sodium/ Dextrose 50 ml @ 50 mls/hr Q8HR IV 08/02/24 14:00 08/03/24 14:00 50 MLS/HR Metronidazole 100 ml @ 100 mls/hr Q8HR IV 08/02/24 14:00 08/03/24 05:07 100 MLS/HR Hydromorphone HCl 1 mg Q3HPRN PRN IV 08/02/24 10:30 08/03/24 14:00 1 MG Ondansetron HCl 4 mg Q4HPRN PRN IV 08/02/24 10:30 Docusate Sodium 100 mg BID PRN PO 08/03/24 07:30 Ibuprofen 600 mg Q8HP PRN PO 08/03/24 07:30 Acetaminophen/ Hydrocodone Bitart 1 tab Q4HPRN PRN PO 08/03/24 07:30 08/03/24 12:28 1 TAB Pantoprazole Sodium 40 mg BID IV 08/03/24 22:00 Examination: GENERAL:Normal, HEENT:Normal, NECK:Normal, LUNGS:Normal, CVS:Normal, ABDOMEN:Abnormal (GWYN drain), MSK:Normal, SKIN:Normal laboratory and microbiology Laboratory Tests 08/03/24 05:32 Test 08/03/24 05:32 Range/Units Serum Glucose 130 H 74-106 mg/dL Problem List/Assessment/Plan Problem List/Assessment/Plan 08/03/24 patient complaint of pain all over, abdomen soft, non distended, appropriately tender, denies nausea or vomiting, full liquid diet , patient to ambulate , continue IV antibiotics Plan discussed with: Patient, Other ELENITA GONZALEZ NP Aug 03, 2024 14:19
--- NOTE | 2024-08-03 14:46 | DVHINCON2 ---
ZULLY HARRELL [facility] 08/03/24 1446: Date Seen: Aug 03, 2024 Referring Physician MD Lakhwinder Reason for Consultation Chest pain History of Present Illness This is a 29-year-old female patient who presents to the emergency room with chief complaint of abdominal pain four days prior to emergency room arrival. During this admission, the patient underwent a laparoscopic appendectomy with drainage of right ovarian cyst and lysis of adhesions. Today, the patient complained of chest pain so the primary care team has consulted Cardiology. She describes the pain as provoked with movement, intermittent, pressure-like in nature, originating in the epigastric area with radiation towards her midsternal chest. She denies any associated symptoms. Initial twelve lead electrocardiogram reveals sinus tachycardia without any significant ST segment changes. At the time of assessment, the patient underwent a repeat twelve lead electrocardiogram which revealed sinus tachycardia with baseline wander and all leads. Initial troponin level was negative. Significant past medical history includes preeclampsia and recent on July 02, 2024. Past Medical History Past medical history reviewed. No other significant than mentioned above. Past Surgical History on July 02, 2024 Family History: Patient reports no known family medical history. Family History Family history reviewed. Social History Denies the use of tobacco, alcohol or illicit drugs. Allergies: Coded Allergies: NO KNOWN ALLERGIES (Unverified , 04/09/10) Home Meds No Active Prescriptions or Reported Meds Home Meds Denies taking any prescribed medications Current Medications Current Medications Medications (Trade) Dose Ordered Sig/Robyn Route PRN Reason Start Time Stop Time Status Last Admin Pantoprazole Sodium (Protonix) 40 mg DAILY IV 08/03/24 10:00 08/03/24 10:55 DC Doxycycline Hyclate 100 ml @ 50 mls/hr Q12H IV 08/03/24 00:30 08/03/24 07:27 DC 08/03/24 00:42 Docusate Sodium (Colace Capsule) 100 mg BID PRN PO constipation 08/03/24 07:30 Ibuprofen (Motrin Tablet) 600 mg Q8HP PRN PO MILD PAIN (1-3 PAIN SCALE) 08/03/24 07:30 Acetaminophen/ Hydrocodone Bitart ([place] 5/325MG Tab) 1 tab Q4HPRN PRN PO MODERATE PAIN (4-6 PAIN SCALE) 08/03/24 07:30 08/03/24 12:28 Pantoprazole Sodium (Protonix) 40 mg BID IV 08/03/24 22:00 Review of Systems Constitutional: No symptom reported Ears, Nose, & Throat: No symptom reported Eyes: No symptom reported Neurological: No symptoms reported Pulmonary/Respiratory: No symptoms reported Cardiovascular: Chest pain Gastrointestinal: No symptom reported Genitourinary: No symptom reported Musculoskeletal: No symptom reported Skin: No symptom reported Psychiatric: No symptom reported Endocrine: No symptom reported Hematologic/Lymphatic: No symptom reported Vital Signs Vital Signs Date Time Temp Pulse Resp B/P (MAP) Pulse Ox O2 Delivery O2 Flow Rate FiO2 08/03/24 14:00 85 18 110/78 08/03/24 09:00 98.7 96 98.7 08/03/24 08:00 Nasal Cannula* 1 24 Physical Exam General Appearance: Cooperative. Well-developed. Well-nourished. No acute distress. Pulmonary/Respiratory: Clear, bilateral breaths sounds. Cardiovascular/Chest: Regular rate and rhythm. Peripheral Pulses: 2+ Radial (R). 2+ Radial (L). 2+ Pedal (R). 2+ Pedal (L) Abdominal Exam: Normal bowel sounds. Ankle Exam: Negative ankle edema Lower extremities: Negative lower extremity edema Neuro/Mental Status: A/OX4, coherent. Thoughts/Psych: Normal thought pattern. Appropriate mood and affect. Good judgment and insight. Appearance: No acute distress. Skin Exam: Normal inspection. Normal color. Warm and dry. Labs/Diagnostic Data Labs Test 08/03/24 05:32 08/02/24 05:30 08/02/24 05:25 07/31/24 18:00 Range/Units White Blood Count 11.0 #H 4.4-10.8 10^3/uL Red Blood Count 3.45 L 4.0-5.20 10^6/uL Hemoglobin 8.7 L 12.2-16.2 g/dL Hematocrit 27.2 L 36.0-46.0 % Mean Corpuscular Volume 79.0 L 80.0-100.0 fL Mean Corpuscular Hemoglobin 25.3 L 28.0-32.0 pg Mean Corpuscular Hemoglobin Concent 32.0 32.0-36.0 g/dL Red Cell Distribution Width 17.2 H 11.8-14.3 % Platelet Count 645 H 140-450 10^3/uL Mean Platelet Volume 6.2 L 6.9-10.8 fL Neutrophils (%) (Auto) 90.1 H 37.0-80.0 % Lymphocytes (%) (Auto) 4.9 L 10.0-50.0 % Monocytes (%) (Auto) 4.9 0.0-12.0 % Eosinophils (%) (Auto) 0.0 0.0-7.0 % Basophils (%) (Auto) 0.1 0.0-2.0 % Neutrophils # (Auto) 9.9 H 1.6-8.6 10 ^3/uL Lymphocytes # (Auto) 0.5 0.4-5.4 10 ^3/uL Monocytes # (Auto) 0.5 0-1.3 10 ^3/uL Eosinophils # (Auto) 0 0-0.8 10 ^3/uL Basophils # (Auto) 0 0-0.2 10 ^3/uL Nucleated Red Blood Cells 0.0 % Sodium Level 138 136-145 mmol/L Potassium Level 3.9 3.5-5.1 mmol/L Chloride Level 104 98-107 mmol/L Carbon Dioxide Level 26 20-31 mmol/L Anion Gap 8 5-15 Blood Urea Nitrogen < 5 L 9-23 mg/dL Creatinine 0.68 0.550-1.02 mg/dL Glomerular Filtration Rate Calc 119 >90 mL/min BUN/Creatinine Ratio 7.4 L 10.0-20.0 Serum Glucose 130 H 74-106 mg/dL Calcium Level 9.4 8.7-10.4 mg/dL Total Bilirubin 0.3 0.2-1.0 mg/dL Aspartate Amino Transferase (AST) 9 L 13-40 U/L Alanine Aminotransferase (ALT) 9 7-40 U/L Alkaline Phosphatase 87 46-116 U/L Total Protein 6.2 5.7-8.2 g/dL Albumin 3.9 3.2-4.8 g/dL Urine Color Light-yellow Yellow Urine Clarity Clear Clear Urine pH 6.0 5.0-9.0 Urine Specific [place] 1.013 1.001-1.035 Urine Protein Negative Negative Urine Ketones 1+ H Negative Urine Blood Negative Negative /uL Urine Nitrite Negative Negative Urine Bilirubin Negative Negative Urine Urobilinogen Normal Negative mg/dL Urine Leukocyte Esterase Trace Negative /uL Urine RBC 3 0 - 4 /hpf Urine Microscopic WBC 6 H 0-5 /HPF Urine Squamous Epithelial Cells Few <5 /hpf Urine Bacteria Few H None Seen /hpf Urine Mucus Few None Seen Urine Glucose Normal Normal mg/dL Urine Test Negative Negative Prothrombin Time 11.4 9.3-11.8 sec Prothrombin Time INR 1.08 0.9-1.15 Activated Partial Thromboplast Time 34.2 24.5-34.5 SEC Beta HCG, Quantitative 0.5 L 1.5-4.2 mIU/mL Chlamydia trachomatis (STELLA) Negative Negative Neisseria gonorrhoeae (STELLA) Negative Negative Test 07/31/24 15:07 07/29/24 12:42 07/29/24 10:59 Range/Units Erythrocyte Sedimentation Rate 108 H 0-20 mm/hr Iron Level 17 L 50-170 ug/dL Total Iron Binding Capacity 206 L 250-425 ug/dL Percent Iron Saturation 8.3 L 15-50 % C-Reactive Protein High Sensitivity 8.14 H <1.0 mg/dL Troponin I High Sensitivity < 3 L </=34 ng/L Platelet Estimate Markedly increased Anisocytosis (manual) Slight Microcytosis Slight Lipase 28 12-53 U/L Microbiology Date/Time Source Procedure Growth Status 07/31/24 18:00 Voided Urine Urine Culture - Final Complete 07/31/24 15:07 Blood Blood Culture - Preliminary NO GROWTH AFTER 48 HOURS OF INCUBATION. Resulted Assessment Noncardiac chest pain Elevated D-dimer History of preeclampsia Anemia Appendicitis status post appendectomy Plan/Recommendation We will continue with the following plan/recommendations (Dr. Cruz): Case discussed with . We will proceed with obtaining a transthoracic echocardiogram to evaluate cardiac function. Given the patient's clinical presentation, unremarkable twelve lead electrocardiogram, and negative troponin level, doubt ACS. The patient was noted to be anemic, which could possibly be contributing to the pain. The patient recently underwent surgery, so a D-dimer level was ordered today and was noted to be significantly elevated. The patient is noted to have had a CT angio on 07/29/24 (prior to surgery) which was negative for pulmonary embolism, we will defer to primary care team for further PE workup if deemed necessary. In the setting of an unremarkable transthoracic echo cardiogram, there is no further inpatient cardiac workup indicated at this time. Thank you for allowing us to care for this patient. Please call with any questions or concerns. Critical care time spent: 40 minutes This medical document was created using an electronic medical record system with voice recognition software and computerized dictation system. Although this document has been carefully reviewed, there might still be some phonetic and typographical errors. Occasional wrong-word or ``sound-alike substitutions may have occurred due to the inherent limitations of voice recognition software. These areas are purely typographical due to imperfections of the software programs and do not reflect any compromise in the patient's medical care. Please read the chart carefully and recognize, using context, where these substitutions have occurred. Plan discussed with: Patient NYHA Physical activity limitations: NA Date of Service: Aug 03, 2024 Billing Provider: ZULLY HARRELL Cardiology Common Codes: [id number] INP/OBS CARE (High) Cardiology Consultation Codes: [id number] CONSULT <45MIN CAMI CRUZ DO 08/03/24 2146: Family History: Patient reports no known family medical history. Allergies: Coded Allergies: NO KNOWN ALLERGIES (Unverified , 04/09/10) Home Meds No Active Prescriptions or Reported Meds Plan/Recommendation Patient encounter was reviewed and discussed with Zully Harrell NP. All history, meds, vitals, labs, and imaging were reviewed with her. I agree with her A/P which was formulated with me. Plan discussed with: Patient Date of Service: Aug 03, 2024 Billing Provider: CAMI CRUZ DO Cardiology Common Codes: [id number] INP/OBS CARE (High) ZULLY HARRELL Aug 03, 2024 14:46 CAMI CRUZ DO Aug 03, 2024 21:46
[2024-08-03 15:09] LABS: Magnesium 1.5 mg/dL (1.6-2.6)
[2024-08-03] MEDS: MAGNESIUM SULFATE 1GM/100ML 100 ML IV SCH (16:00)
[2024-08-03 16:46] VITALS: BP 123/85; PULSE 135; RESP 19; TEMP 98.1; O2SAT 95
[2024-08-03 20:00] VITALS: PULSE 119; PULSE 84
[2024-08-03 21:00] VITALS: BP 117/76; PULSE 131; RESP 18; TEMP 99.5; O2SAT 96
--- NOTE | 2024-08-03 21:03 | DVHSR ---
APPROVED REPORT EXAM: LIMITED Two-dimensional and M-mode echocardiogram with Doppler and color Doppler. Blood Pressure: 110/78 mmHg INDICATION evaluate cardiac function RISK FACTORS Height: 5'5, Weight: 143 DIMENSIONS LVDd4.3 (3.8-5.7cm)LA (2D)2.7 (1.9-4.0cm)Aortic Root3.0 (2.0-3.7cm) LVDs3.2 (2.5-4.0cm)LA (MM) (1.9-4.0cm)Aortic Cusp Exc1.9 (1.5-2.0cm) EF (%) 50.0 (55-70%)Rt. Atrium2.7 (1.9-4.0cm)Asc. Aorta cm IVSd0.7 (0.7-1.1cm)RV (D)2.2 (1.8-2.4cm) PWd1.1 (0.7-1.1cm) Mitral Valve MitralMitral Stenosis E/A ratio0.02D MVAcm2 Aortic Valve Aortic ValveAortic Stenosis LVOT Diameter2.2 (1.8-2.4cm)Doppler AVAcm2 Pulmonic Valve V20.93m/s Other Information Quality : LimitedRhythm : Technically limited study due to pt had surgery recently and has abdomen wrapped Conclusion Normal biventricular size and systolic function. LVEF 60-65%. Normal wall motion. No obvious significant valvular disease. No pericardial effusion. Sinus tachycardia.
[2024-08-04] VITALS (7 sets, daily range): BP systolic 107–130; BP diastolic 69–82; PULSE 84–136; RESP 17–20; TEMP 97.7–100.5; O2SAT 92–100
[2024-08-04 05:32] LABS: Basophils # (auto) 0 10 ^3/uL (0-0.2); Eosinophils # (auto) 0 10 ^3/uL (0-0.8); Hematocrit 27.2 % (36.0-46.0); Hemoglobin 8.6 g/dL (12.2-16.2); Lymphocytes # (auto) 0.5 10 ^3/uL (0.4-5.4); Lymphocytes % (auto) 3.1 % (10.0-50.0); Mean Corpuscular Volume 78.1 fL (80.0-100.0); Monocytes # (auto) 0.8 10 ^3/uL (0-1.3)
[2024-08-04 05:35] LABS: Mean Corpuscular Hemoglobin 24.7 pg (28.0-32.0); Mean Corpuscular Hgb Conc. 31.6 g/dL (32.0-36.0); Monocytes % (auto) 5.2 % (0.0-12.0); Neutrophils # (auto) 14.7 10 ^3/uL (1.6-8.6); Neutrophils % (auto) 91.7 % (37.0-80.0); Platelet Count (auto) 645 10^3/uL (140-450); Red Blood Cells 3.48 10^6/uL (4.0-5.20); Red Cell Distribution Width 17.4 % (11.8-14.3); White Blood Cell 16.1 10^3/uL (4.4-10.8)
[2024-08-04 05:48] LABS: Albumin 3.9 g/dL (3.2-4.8); Alkaline Phosphatase 108 U/L (46-116); Anion Gap 9 (5-15); Bilirubin, Total 0.4 mg/dL (0.2-1.0); Calcium 9.2 mg/dL (8.7-10.4); Carbon Dioxide 27 mmol/L (20-31); Chloride 101 mmol/L (98-107); Sodium 137 mmol/L (136-145); Total Protein 6.2 g/dL (5.7-8.2)
[2024-08-04 06:27] LABS: Alanine Aminotransferase < 9 U/L (7-40); Aspartate Aminotransferase 10 U/L (13-40); BUN/Creatinine Ratio 7.1 (10.0-20.0); Blood Urea Nitrogen < 5 mg/dL (9-23); Glucose 135 mg/dL (74-106); Potassium 3.5 mmol/L (3.5-5.1)
--- NOTE | 2024-08-04 10:02 | DVHPN2 ---
Reviewed: Care Plan, H&P, Labs, Medications, Previous Orders, Radiology Changes from previous H/P or p: No Changes Cardiovascular: Chest Pain Gastrointestinal: Nausea, Vomiting, Abdominal Pain Objective Vitals Vital Signs Date Time Temp Pulse Resp B/P (MAP) Pulse Ox O2 Delivery O2 Flow Rate FiO2 08/04/24 05:35 120 18 125/85 08/04/24 05:20 99.8 08/04/24 05:00 97 08/03/24 20:00 Nasal Cannula* 1 24 Intake/Output Intake and Output 08/04/24 07:00 Intake Total 2750 ml Output Total 500 ml Balance 2250 ml Intake Oral 1100 ml IV Total 1650 ml Output Urine Total 450 ml Drainage Total 50 ml # Voids 3 Medications Current Medications Medications Dose Ordered Sig/Robyn Route Start Time Stop Time Status Last Admin Dose Admin Acetaminophen 650 mg Q6HP PRN PO 07/29/24 18:00 08/04/24 04:20 650 MG Acetaminophen/ Hydrocodone Bitart 1 tab Q4HPRN PRN PO 07/30/24 11:45 Cancel Sucralfate 1 gm BID@0600,2200 PO 07/30/24 22:00 08/04/24 04:50 1 GM Polyethylene Glycol 17 gm DAILY PO 08/01/24 10:00 08/01/24 10:22 17 GM Potassium Chloride/Dextrose/ Sod Cl 1,000 ml @ 120 mls/hr Q8H20M IV 08/02/24 10:30 08/04/24 05:42 120 MLS/HR Cefazolin Sodium/ Dextrose 50 ml @ 50 mls/hr Q8HR IV 08/02/24 14:00 08/04/24 04:50 50 MLS/HR Metronidazole 100 ml @ 100 mls/hr Q8HR IV 08/02/24 14:00 08/04/24 04:50 100 MLS/HR Hydromorphone HCl 1 mg Q3HPRN PRN IV 08/02/24 10:30 08/04/24 05:00 1 MG Ondansetron HCl 4 mg Q4HPRN PRN IV 08/02/24 10:30 Docusate Sodium 100 mg BID PRN PO 08/03/24 07:30 Ibuprofen 600 mg Q8HP PRN PO 08/03/24 07:30 Acetaminophen/ Hydrocodone Bitart 1 tab Q4HPRN PRN PO 08/03/24 07:30 08/04/24 05:50 1 TAB Pantoprazole Sodium 40 mg BID IV 08/03/24 22:00 08/03/24 21:12 40 MG Laboratory Results Laboratory Tests 08/04/24 05:16 Chemistry Test 08/04/24 05:16 Albumin 3.9 g/dL (3.2-4.8) Calcium Level 9.2 mg/dL (8.7-10.4) Total Protein 6.2 g/dL (5.7-8.2) Coagulation Test 08/03/24 14:30 D-Dimer, Quantitative 8.06 mg/L FEU (0.0-0.49) H LFT Test 08/04/24 05:16 Alanine Aminotransferase (ALT) < 9 U/L (7-40) Alkaline Phosphatase 108 U/L (46-116) Aspartate Amino Transferase (AST) 10 U/L (13-40) L Total Bilirubin 0.4 mg/dL (0.2-1.0) Urinalysis Test 08/02/24 05:30 Urine Color Light-yellow (Yellow) Urine Clarity Clear (Clear) Urine pH 6.0 (5.0-9.0) Urine Specific [place] 1.013 (1.001-1.035) Urine Protein Negative (Negative) Urine Ketones 1+ (Negative) H Urine Blood Negative /uL (Negative) Urine Nitrite Negative (Negative) Urine Bilirubin Negative (Negative) Urine Urobilinogen Normal mg/dL (Negative) Urine Leukocyte Esterase Trace /uL (Negative) Urine RBC 3 /hpf (0 - 4) Urine Microscopic WBC 6 /HPF (0-5) H Urine Squamous Epithelial Cells Few /hpf (<5) Urine Bacteria Few /hpf (None Seen) H Urine Mucus Few (None Seen) Urine Glucose Normal mg/dL (Normal) Urine Test Negative (Negative) Microbiology Microbiology Date/Time Source Procedure Growth Status 07/31/24 18:00 Voided Urine Urine Culture - Final Complete 07/31/24 15:07 Blood Blood Culture - Preliminary NO GROWTH AFTER 72 HOURS OF INCUBATION. Resulted Labs and/or images reviewed: Labs reviewed by me, Image(s) reviewed by me Assessment/Plan Assessment/Plan Acute appendicitis status post diagnostic laparoscopy, midline laparotomy, appendectomy, drainage of right ovarian cyst lysis of adhesions and placement of GWYN drain on 08/02/[address] engineer [address] Duran along with surgeon Dr. 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 preeclampsia Elevated D-dimer: PE ruled out GERD: Pantoprazole and Carafate Time spent 45 minutes Plan discussed with: Patient My Orders Orders - DENNIS COLIN MD Procedure Category Date Status Time Pantoprazole PHA 08/03/24 In Process (Protonix) 22:00 Complete Blood Count LAB 08/05/24 Verified 05:00 Complete Blood Count LAB 08/06/24 Verified 05:00 Comprehensive LAB 08/05/24 Verified Metabolic Panel 05:00 Comprehensive LAB 08/06/24 Verified Metabolic Panel 05:00 * Cardiology Consult CONS 08/03/24 Transmitted 14:09 Electrocardigram EKG 08/03/24 Logged 14:09 Blood Culture MIGUEL 08/04/24 Logged 09:54 Date of Service: Aug 04, 2024 Billing Provider: DENNIS COLIN MD Common Visit Codes: [id number] INP/OBS CARE(HIGH) DENNIS COLIN MD Aug 04, 2024 10:02
--- NOTE | 2024-08-04 10:25 | DVHPN2 ---
Subjective Progress Notes Subjective POD#2 Patient c/o abd pain 6/10 level, and chest pain (non cardiac) Unable to take deep breaths. no cough Appreciate cardiology consult. Work up for tachycardia with CP and elevated D Dimer showed EKG w/ sinus tachycarida with no ST changes, neg troponins, and 2d cardiac ECHO WNL Patient continues to have fever and increasing Leukocytosis, on Ancef and Flagyl. No wound culture results available from surgery. NO flatus, no BM for 2 days. NO N/V Objective PHYSICAL EXAM Physical Exam: Alert, NAD Abd soft, mild diffuse tenderness,no masses, tympanic, moderate distention, incisions C/D/I Ext soft, neg alejandro sign, no edema Labs reviewed and imaging reviewed Vital Signs and I&O Vital Signs Date Time Temp Pulse Resp B/P (MAP) Pulse Ox O2 Delivery O2 Flow Rate FiO2 08/05/24 09:05 98.1 122 18 109/75 (86) 98 98.1 08/04/24 20:00 Nasal Cannula* 1 24 Intake and Output 08/05/24 07:00 Intake Total 1910 ml Balance 1910 ml Intake Oral 860 ml IV Total 1050 ml # Voids 7 Lab results Laboratory Tests Test 07/29/24 10:59 07/29/24 12:42 07/30/24 05:10 07/30/24 06:09 Range/Units White Blood Count 7.9 7.3 4.4-10.8 10^3/uL Red Blood Count 3.64 L 3.13 L 4.0-5.20 10^6/uL Hemoglobin 9.6 L 8.1 #L 12.2-16.2 g/dL Hematocrit 29.1 L 25.1 #L 36.0-46.0 % Mean Corpuscular Volume 79.9 L 80.3 80.0-100.0 fL Mean Corpuscular Hemoglobin 26.5 L 25.8 L 28.0-32.0 pg Mean Corpuscular Hemoglobin Concent 33.1 32.2 32.0-36.0 g/dL Red Cell Distribution Width 17.9 H 18.0 H 11.8-14.3 % Platelet Count 846 *H 679 H 140-450 10^3/uL Mean Platelet Volume 6.3 L 6.1 L 6.9-10.8 fL Neutrophils (%) (Auto) 82.7 H 77.2 37.0-80.0 % Lymphocytes (%) (Auto) 10.8 13.3 10.0-50.0 % Monocytes (%) (Auto) 5.5 8.2 0.0-12.0 % Eosinophils (%) (Auto) 0.7 1.1 0.0-7.0 % Basophils (%) (Auto) 0.3 0.2 0.0-2.0 % Neutrophils # (Auto) 6.6 5.6 1.6-8.6 10 ^3/uL Lymphocytes # (Auto) 0.9 1.0 0.4-5.4 10 ^3/uL Monocytes # (Auto) 0.4 0.6 0-1.3 10 ^3/uL Eosinophils # (Auto) 0.1 0.1 0-0.8 10 ^3/uL Basophils # (Auto) 0 0 0-0.2 10 ^3/uL Nucleated Red Blood Cells 0.0 0.1 % Platelet Estimate Markedly increased Anisocytosis (manual) Slight Microcytosis Slight Sodium Level 139 140 136-145 mmol/L Potassium Level 3.7 3.5 3.5-5.1 mmol/L Chloride Level 103 107 98-107 mmol/L Carbon Dioxide Level 26 23 20-31 mmol/L Anion Gap 10 10 5-15 Blood Urea Nitrogen 10 8 L 9-23 mg/dL Creatinine 0.75 0.77 0.550-1.02 mg/dL Glomerular Filtration Rate Calc 109 106 >90 mL/min BUN/Creatinine Ratio 13.3 10.4 10.0-20.0 Serum Glucose 87 81 74-106 mg/dL Calcium Level 10.3 9.2 8.7-10.4 mg/dL Total Bilirubin 0.6 0.4 0.2-1.0 mg/dL Aspartate Amino Transferase (AST) 17 13 13-40 U/L Alanine Aminotransferase (ALT) 21 14 7-40 U/L Alkaline Phosphatase 121 H 103 46-116 U/L Troponin I High Sensitivity < 3 L < 3 L </=34 ng/L Total Protein 7.7 6.7 5.7-8.2 g/dL Albumin 4.9 H 4.3 3.2-4.8 g/dL Lipase 28 12-53 U/L Test 07/31/24 15:07 07/31/24 18:00 08/01/24 06:02 08/02/24 05:25 Range/Units Erythrocyte Sedimentation Rate 108 H 0-20 mm/hr Iron Level 17 L 50-170 ug/dL Total Iron Binding Capacity 206 L 250-425 ug/dL Percent Iron Saturation 8.3 L 15-50 % C-Reactive Protein High Sensitivity 8.14 H <1.0 mg/dL Chlamydia trachomatis (STELLA) Negative Negative Neisseria gonorrhoeae (STELLA) Negative Negative White Blood Count 7.1 4.4-10.8 10^3/uL Red Blood Count 3.22 L 4.0-5.20 10^6/uL Hemoglobin 8.2 L 12.2-16.2 g/dL Hematocrit 25.2 L 36.0-46.0 % Mean Corpuscular Volume 78.2 L 80.0-100.0 fL Mean Corpuscular Hemoglobin 25.6 L 28.0-32.0 pg Mean Corpuscular Hemoglobin Concent 32.7 32.0-36.0 g/dL Red Cell Distribution Width 17.8 H 11.8-14.3 % Platelet Count 631 H 140-450 10^3/uL Mean Platelet Volume 6.1 L 6.9-10.8 fL Neutrophils (%) (Auto) 79.3 37.0-80.0 % Lymphocytes (%) (Auto) 12.2 10.0-50.0 % Monocytes (%) (Auto) 7.3 0.0-12.0 % Eosinophils (%) (Auto) 1.0 0.0-7.0 % Basophils (%) (Auto) 0.2 0.0-2.0 % Neutrophils # (Auto) 5.7 1.6-8.6 10 ^3/uL Lymphocytes # (Auto) 0.9 0.4-5.4 10 ^3/uL Monocytes # (Auto) 0.5 0-1.3 10 ^3/uL Eosinophils # (Auto) 0.1 0-0.8 10 ^3/uL Basophils # (Auto) 0 0-0.2 10 ^3/uL Nucleated Red Blood Cells 0.0 % Prothrombin Time 11.4 9.3-11.8 sec Prothrombin Time INR 1.08 0.9-1.15 Activated Partial Thromboplast Time 34.2 24.5-34.5 SEC Beta HCG, Quantitative 0.5 L 1.5-4.2 mIU/mL Test 08/02/24 05:30 08/03/24 05:32 08/03/24 14:30 08/03/24 16:32 Range/Units Urine Color Light-yellow Yellow Urine Clarity Clear Clear Urine pH 6.0 5.0-9.0 Urine Specific [place] 1.013 1.001-1.035 Urine Protein Negative Negative Urine Ketones 1+ H Negative Urine Blood Negative Negative /uL Urine Nitrite Negative Negative Urine Bilirubin Negative Negative Urine Urobilinogen Normal Negative mg/dL Urine Leukocyte Esterase Trace Negative /uL Urine RBC 3 0 - 4 /hpf Urine Microscopic WBC 6 H 0-5 /HPF Urine Squamous Epithelial Cells Few <5 /hpf Urine Bacteria Few H None Seen /hpf Urine Mucus Few None Seen Urine Glucose Normal Normal mg/dL Urine Test Negative Negative White Blood Count 11.0 #H 4.4-10.8 10^3/uL Red Blood Count 3.45 L 4.0-5.20 10^6/uL Hemoglobin 8.7 L 12.2-16.2 g/dL Hematocrit 27.2 L 36.0-46.0 % Mean Corpuscular Volume 79.0 L 80.0-100.0 fL Mean Corpuscular Hemoglobin 25.3 L 28.0-32.0 pg Mean Corpuscular Hemoglobin Concent 32.0 32.0-36.0 g/dL Red Cell Distribution Width 17.2 H 11.8-14.3 % Platelet Count 645 H 140-450 10^3/uL Mean Platelet Volume 6.2 L 6.9-10.8 fL Neutrophils (%) (Auto) 90.1 H 37.0-80.0 % Lymphocytes (%) (Auto) 4.9 L 10.0-50.0 % Monocytes (%) (Auto) 4.9 0.0-12.0 % Eosinophils (%) (Auto) 0.0 0.0-7.0 % Basophils (%) (Auto) 0.1 0.0-2.0 % Neutrophils # (Auto) 9.9 H 1.6-8.6 10 ^3/uL Lymphocytes # (Auto) 0.5 0.4-5.4 10 ^3/uL Monocytes # (Auto) 0.5 0-1.3 10 ^3/uL Eosinophils # (Auto) 0 0-0.8 10 ^3/uL Basophils # (Auto) 0 0-0.2 10 ^3/uL Nucleated Red Blood Cells 0.0 % Sodium Level 138 136-145 mmol/L Potassium Level 3.9 3.5-5.1 mmol/L Chloride Level 104 98-107 mmol/L Carbon Dioxide Level 26 20-31 mmol/L Anion Gap 8 5-15 Blood Urea Nitrogen < 5 L 9-23 mg/dL Creatinine 0.68 0.550-1.02 mg/dL Glomerular Filtration Rate Calc 119 >90 mL/min BUN/Creatinine Ratio 7.4 L 10.0-20.0 Serum Glucose 130 H 74-106 mg/dL Hemoglobin A1c < 3.8 <5.7 % A1C Calcium Level 9.4 8.7-10.4 mg/dL Magnesium Level 1.5 L 1.6-2.6 mg/dL Total Bilirubin 0.3 0.2-1.0 mg/dL Aspartate Amino Transferase (AST) 9 L 13-40 U/L Alanine Aminotransferase (ALT) 9 7-40 U/L Alkaline Phosphatase 87 46-116 U/L Troponin I High Sensitivity < 3 L < 3 L < 3 L </=34 ng/L Total Protein 6.2 5.7-8.2 g/dL Albumin 3.9 3.2-4.8 g/dL Triglycerides Level 71 < 150 mg/dL Cholesterol Level 122 < 200 mg/dL LDL Cholesterol 78 < 100 mg/dL HDL Cholesterol 28 L 40-59 mg/dL Thyroid Stimulating Hormone (TSH) 0.71 0.55-4.78 uIU/mL D-Dimer, Quantitative 8.06 H 0.0-0.49 mg/L FEU Test 08/04/24 05:16 08/04/24 17:48 Range/Units White Blood Count 16.1 #H 4.4-10.8 10^3/uL Red Blood Count 3.48 L 4.0-5.20 10^6/uL Hemoglobin 8.6 L 12.2-16.2 g/dL Hematocrit 27.2 L 36.0-46.0 % Mean Corpuscular Volume 78.1 L 80.0-100.0 fL Mean Corpuscular Hemoglobin 24.7 L 28.0-32.0 pg Mean Corpuscular Hemoglobin Concent 31.6 L 32.0-36.0 g/dL Red Cell Distribution Width 17.4 H 11.8-14.3 % Platelet Count 645 H 140-450 10^3/uL Mean Platelet Volume 6.1 L 6.9-10.8 fL Neutrophils (%) (Auto) 91.7 H 37.0-80.0 % Lymphocytes (%) (Auto) 3.1 L 10.0-50.0 % Monocytes (%) (Auto) 5.2 0.0-12.0 % Eosinophils (%) (Auto) 0.0 0.0-7.0 % Basophils (%) (Auto) 0.0 0.0-2.0 % Neutrophils # (Auto) 14.7 H 1.6-8.6 10 ^3/uL Lymphocytes # (Auto) 0.5 0.4-5.4 10 ^3/uL Monocytes # (Auto) 0.8 0-1.3 10 ^3/uL Eosinophils # (Auto) 0 0-0.8 10 ^3/uL Basophils # (Auto) 0 0-0.2 10 ^3/uL Nucleated Red Blood Cells 0.0 % Sodium Level 137 136-145 mmol/L Potassium Level 3.5 3.5-5.1 mmol/L Chloride Level 101 98-107 mmol/L Carbon Dioxide Level 27 20-31 mmol/L Anion Gap 9 5-15 Blood Urea Nitrogen < 5 L 9-23 mg/dL Creatinine 0.70 0.550-1.02 mg/dL Glomerular Filtration Rate Calc 119 >90 mL/min BUN/Creatinine Ratio 7.1 L 10.0-20.0 Serum Glucose 135 H 74-106 mg/dL Calcium Level 9.2 8.7-10.4 mg/dL Total Bilirubin 0.4 0.2-1.0 mg/dL Aspartate Amino Transferase (AST) 10 L 13-40 U/L Alanine Aminotransferase (ALT) < 9 7-40 U/L Alkaline Phosphatase 108 46-116 U/L Total Protein 6.2 5.7-8.2 g/dL Albumin 3.9 3.2-4.8 g/dL HIV (1&2) Antibody Negative Negative Assessment and Plan ASSESSMENT AND PLAN Assessment and Plan 1. POD#2 s/p Ex lap appendectomy, Rt ov cyst drained 2. Leukocytosis, and fever post op 3. Chest pain w/ elevated D Dimer 4. Abdominal pain Plan: 1. Recommend change antibiotics to Levaquin and Flagyl. No culture was obtained during surgery, Treat empirically - Obtain ID consult for co-mgmt and Abx recommendations 2. Cardiology managing chest pain and elevated D Dimer - 2D Cardiac ECHO WNL - Consider LE Doppler or Chest CT r/o PE, will defer to primary IM team, if deemed necessary - D Dimer likely elevated due to surgery - Rx Subcut Lovenox for DVT prophylaxis SCD's not consistently being applied / used as indicated. 3. Abdominal distention Order KUB r/o ileus /obstruction, consider NG tube placement 4. SOB - CXR ordered - Incentive spirometry use 10x/hr while awake - Ambulate and out of bed plan and recommendations discussed with general surgery team, they will follow patient over the weekend. My orders: Orders - VALE NGO DO Mri Abd & Plevis W/Wo Cont (07/30/24 07:22) Obtain Consent For Anesthesia (08/01/24 12:40) Obtain Consent For: (08/01/24 12:40) Obtain Consent For Anesthesia (08/01/24 12:40) Docusate Sodium Capsule (Colace Capsule) (08/03/24 07:30) Ibuprofen Tablet (Motrin Tablet) (08/03/24 07:30) Hydrocodone-Acet 5/325mg Tab ([place] 5/32 (08/03/24 07:30) Discontinue Pike Catheter (08/03/24 07:26) Pt Request For Service (08/03/24 07:26) Ambulate X 4 Daily On Pod #1 (08/03/24 07:26) * Infectious [place]- Dr. Santo (08/04/24 11:13) Enoxaparin Sodium (Lovenox) (08/04/24 11:30) Chest Two Views Routine (08/05/24 08:33) Kub Abdomen Single View (08/05/24 08:34) Plan discussed with: Patient Visit Coding OBGYN Date of Service: Aug 04, 2024 Billing Provider: VALE NGO DO BINDERY MANAGER Common Visit Codes: CONSULTATION ONLY BINDERY MANAGER Consultation Codes: [id number] INPATIENT CONSULT (HIGH) VALE NGO DO Aug 04, 2024 10:25
[2024-08-04] MEDS: levoFLOXacin 750MG 150 ML IV SCH (10:30)
--- NOTE | 2024-08-04 11:17 | ECG ---
[facility] Test Date: 2024-08-03 Test Time: 14:31:50 Pat Name: CRISTINA PICKARD Department: Room: 0239T A Gender: F [employer]: RAMIREZ : 1995 Requested By: DENNIS COLIN Order Number: [id number] Reading MD: Ambrosio Dick Measurements Intervals [place] Rate: 131 P: 62 ND: 133 QRS: 46 QRSD: 88 T: -72 QT: 369 QTc: 545 Interpretive Statements Sinus tachycardia Ventricular premature complex Aberrant conduction of SV complex(es) LAE, consider biatrial enlargement Nonspecific repol abnormality, diffuse leads Prolonged QT interval Baseline wander in lead(s) I,II,III,aVR,aVL,aVF,V1,V2,V3,V4,V5,V6 Electronically Signed On 08-07-2024 8:12:22 PST by Ambrosio Dick Please click the below link to view image of tracing.
[2024-08-04] MEDS: ENOXAPARIN SOD 30 MG/0.3 ML SYRINGE SC SCH (13:25)
--- NOTE | 2024-08-04 14:29 | MEDREC ---
[facility] Intervention Section I [facility] Intervention: Review courses of therapy (PATIENT HAS SINUS TACHYCARDIA WITH QT PROLONGATION (QTc 545 ON EKG 08/03). LEVOFLOXACIN AND CIPROFLOXACIN CAN PROLONG THE QT INTERVAL EVEN FURTHER. PLEASE CONSIDER SWITCHING CIPROFLOXACIN AND FLAGYL TO ZOSYN OR MEROPENEM TO COVER FOR POSSBILE INTRA-ABDOMINAL I NFECTIONS) SEAMUS JOE Aug 04, 2024 14:29
--- NOTE | 2024-08-04 14:46 | DVHPN2 ---
Progress Note Date Seen: Aug 04, 2024 Resident Creating Document: NASEEM MEYER RESIDENT Medical Necessity Reason Pt with a Central, PICC or Fol: No Subjective Review of Systems Patient seen and examined at bedside. Patient continued to have abdominal pain and back pain. No fever, nausea vomiting diarrhea or. Patient had fever during nighttime as well. Patient is treated with IV antibiotic as per primary care team. Objective vital signs Vital Sign Date Time Temp Pulse Resp B/P (MAP) Pulse Ox O2 Delivery O2 Flow Rate FiO2 08/04/24 13:56 117 26 116/78 08/04/24 13:08 97.7 100 97.7 08/03/24 20:00 Nasal Cannula* 1 24 Total Intake and Output 08/03/24 08/03/24 08/04/24 15:00 23:00 07:00 Intake Total 100 ml 800 ml 1850 ml Output Total 500 ml Balance 100 ml 300 ml 1850 ml medications Current Medications Medications Dose Ordered Sig/Robyn Route Start Time Stop Time Status Last Admin Dose Admin Acetaminophen/ Hydrocodone Bitart 1 tab Q4HPRN PRN PO 07/30/24 11:45 Cancel Sucralfate 1 gm BID@0600,2200 PO 07/30/24 22:00 08/04/24 04:50 1 GM Polyethylene Glycol 17 gm DAILY PO 08/01/24 10:00 08/04/24 09:58 17 GM Potassium Chloride/Dextrose/ Sod Cl 1,000 ml @ 120 mls/hr Q8H20M IV 08/02/24 10:30 08/04/24 05:42 120 MLS/HR Metronidazole 100 ml @ 100 mls/hr Q8HR IV 08/02/24 14:00 08/04/24 13:26 100 MLS/HR Hydromorphone HCl 1 mg Q3HPRN PRN IV 08/02/24 10:30 08/04/24 13:56 1 MG Ondansetron HCl 4 mg Q4HPRN PRN IV 08/02/24 10:30 Docusate Sodium 100 mg BID PRN PO 08/03/24 07:30 Ibuprofen 600 mg Q8HP PRN PO 08/03/24 07:30 Acetaminophen/ Hydrocodone Bitart 1 tab Q4HPRN PRN PO 08/03/24 07:30 08/04/24 05:50 1 TAB Pantoprazole Sodium 40 mg BID IV 08/03/24 22:00 08/04/24 09:53 40 MG Levofloxacin/ Dextrose 150 ml @ 100 mls/hr DAILY IV 08/04/24 10:30 Enoxaparin Sodium 30 mg DAILY SC 08/04/24 11:30 08/04/24 13:25 30 MG Ciprofloxacin 200 ml @ 200 mls/hr Q12HR IV 08/04/24 22:00 UNV Examination: GENERAL:Normal, HEENT:Normal, NECK:Normal, LUNGS:Normal, CVS:Normal, ABDOMEN:Abnormal, MSK:Normal, SKIN:Normal, NEURO:Normal, :Normal laboratory and microbiology Laboratory Tests 08/04/24 05:16 Test 08/04/24 05:16 Range/Units Serum Glucose 135 H 74-106 mg/dL Microbiology Date/Time Source Procedure Growth Status 07/31/24 18:00 Voided Urine Urine Culture - Final Complete 07/31/24 15:07 Blood Blood Culture - Preliminary NO GROWTH AFTER 72 HOURS OF INCUBATION. Resulted Problem List/Assessment/Plan Problem List/Assessment/Plan Abdominal pain due to acute appendicitis Acute gastritis Right ovarian cyst Abdominal pain Microcytic hypochromic anemia Plan/recommendation Dr Arenas -S/P Diagnostic laparoscopy & Midline laparotomy with appendectomy and Drainage of right ovarian cyst. Clear liquid diet. Advance as tolerated. continue current management -continue Protonix 40 mg IV daily -for constipation continue Colace 100 mg p.o. b.i.d., -IV antibiotic as per primary care, antibiotic has been changed given patient's continued temperature, elevated WBC count. -advanced diet as per toleration, maintained hydration. -surgery and OBGYN on board. -we will continue following this patient. Plan discussed with: Patient, Other (RN) Dietary Evaluation Review Comments: Encourage and monitor PO intake to meet 75% of her needs. Advance to diet as tolerated. Cntinue MVI supplements Expected Outcomes/Goals: Improved medical condition, healed sugical wounds NASEEM MEYER RESIDENT Aug 04, 2024 14:46
[2024-08-04] MEDS: ONDANSETRON HCL 4 MG/2 ML VIAL IV PRN (17:51)
[2024-08-04] MEDS: DOXYCYCLINE 100MG/100ML 100 ML IV SCH (18:07)
[2024-08-04] MEDS: cefTRIAXone 2GM/50ML D5W 50 ML IV SCH (21:15)
[2024-08-04] MEDS ORDERED: CIPROFLOXACIN 400MG/200ML 200 ML IV SCH (22:00)
[2024-08-05] VITALS (8 sets, daily range): BP systolic 109–130; BP diastolic 75–88; PULSE 107–137; RESP 18–20; TEMP 98.1–99; O2SAT 91–99
--- NOTE | 2024-08-05 08:41 | DVHPN2 ---
Progress Note - Surgical Date Seen: Aug 05, 2024 Post op day Post op day: 4 Subjective Review of Systems: HEENT:Normal, CVS:Normal, RESPIRATORY:Normal, GI:Abnormal (abdominal pain), :Normal, NEURO:Normal Objective Vital signs Vital Sign Date Time Temp Pulse Resp B/P (MAP) Pulse Ox O2 Delivery O2 Flow Rate FiO2 08/05/24 08:31 122 18 109/75 08/05/24 05:00 99.0 92 99.0 08/04/24 20:00 Nasal Cannula* 1 24 Total Intake and Output 08/04/24 08/04/24 08/05/24 15:00 23:00 07:00 Intake Total 100 ml 1810 ml 0 ml Balance 100 ml 1810 ml 0 ml Medications Current Medications Medications Dose Ordered Sig/Robyn Route Start Time Stop Time Status Last Admin Dose Admin Acetaminophen/ Hydrocodone Bitart 1 tab Q4HPRN PRN PO 07/30/24 11:45 Cancel Sucralfate 1 gm BID@0600,2200 PO 07/30/24 22:00 08/05/24 06:00 1 GM Polyethylene Glycol 17 gm DAILY PO 08/01/24 10:00 08/04/24 09:58 17 GM Potassium Chloride/Dextrose/ Sod Cl 1,000 ml @ 120 mls/hr Q8H20M IV 08/02/24 10:30 08/05/24 06:00 120 MLS/HR Metronidazole 100 ml @ 100 mls/hr Q8HR IV 08/02/24 14:00 08/05/24 06:00 100 MLS/HR Hydromorphone HCl 1 mg Q3HPRN PRN IV 08/02/24 10:30 08/05/24 08:31 1 MG Ondansetron HCl 4 mg Q4HPRN PRN IV 08/02/24 10:30 08/04/24 17:51 4 MG Docusate Sodium 100 mg BID PRN PO 08/03/24 07:30 Ibuprofen 600 mg Q8HP PRN PO 08/03/24 07:30 Acetaminophen/ Hydrocodone Bitart 1 tab Q4HPRN PRN PO 08/03/24 07:30 08/04/24 05:50 1 TAB Pantoprazole Sodium 40 mg BID IV 08/03/24 22:00 08/04/24 09:53 40 MG Enoxaparin Sodium 30 mg DAILY SC 08/04/24 11:30 08/04/24 13:25 30 MG Ciprofloxacin 200 ml @ 200 mls/hr Q12HR IV 08/04/24 22:00 UNV Ceftriaxone Sodium/Dextrose 50 ml @ 50 mls/hr DAILY@2000 IV 08/04/24 20:00 08/04/24 21:15 50 MLS/HR Doxycycline Hyclate 100 ml @ 50 mls/hr Q12H IV 08/04/24 18:00 08/05/24 06:00 50 MLS/HR Laboratory Laboratory Tests 08/04/24 05:16 Test 08/04/24 05:16 Range/Units Serum Glucose 135 H 74-106 mg/dL Microbiology Date/Time Source Procedure Growth Status 07/31/24 18:00 Voided Urine Urine Culture - Final Complete 07/31/24 15:07 Blood Blood Culture - Preliminary NO GROWTH AFTER 72 HOURS OF INCUBATION. Resulted Examination: GENERAL:Normal, HEENT:Normal, NECK:Normal, LUNGS:Normal, CVS:Normal, ABDOMEN:Abnormal (ROLY drain, abdomen distended), MSK:Normal, SKIN:Normal, NEURO:Normal Problem List/Assessment/Plan Assessment and Plan patient complaint of abdominal pain ,wounds clean dry and intact ,Roly drain serous sanguineous fluid, abdomen distended, tender to palpation , denies nausea or vomiting reduce use of narcotics Plan NPO KUB pending Place NG NGT to LCS patient to ambulate continue IV antibiotics pending CBC, CMP Discussed plan with Dr. Mendoza and agrees My Orders My Orders Orders - ELENITA GONZALEZ NP Procedure Category Date Status Time Npo (Nothing By DIET 08/04/24 Transmitted Mouth) Diet Lunch Complete Blood Count LAB 08/05/24 Transmitted 08:35 Comprehensive LAB 08/05/24 Transmitted Metabolic Panel 08:35 Plan discussed with Plan discussed with: Patient, Other (Dr. Mendoza) Visit Coding Surgery Date of Service if different f: Aug 05, 2024 Billing Provider: SHARA MENDOZA MD Surgery Visit Codes: [id number] INP/OBS CARE(HIGH) ELENITA GONZALEZ [employer] DEVELOPER Aug 05, 2024 08:41
[2024-08-05] MEDS ORDERED: KETOROLAC TROMETH 30 MG/ML 1ML VIAL IV PRN (08:45)
--- NOTE | 2024-08-05 09:47 | DVHPN2 ---
Reviewed: Care Plan, H&P, Labs, Medications, Previous Orders, Radiology Changes from previous H/P or p: No Changes Cardiovascular: Chest Pain Gastrointestinal: Nausea, Vomiting, Abdominal Pain Objective Vitals Vital Signs Date Time Temp Pulse Resp B/P (MAP) Pulse Ox O2 Delivery O2 Flow Rate FiO2 08/05/24 09:05 98.1 122 18 109/75 (86) 98 98.1 08/04/24 20:00 Nasal Cannula* 1 24 Intake/Output Intake and Output 08/05/24 07:00 Intake Total 1910 ml Balance 1910 ml Intake Oral 860 ml IV Total 1050 ml # Voids 7 Medications Current Medications Medications Dose Ordered Sig/Robyn Route Start Time Stop Time Status Last Admin Dose Admin Acetaminophen/ Hydrocodone Bitart 1 tab Q4HPRN PRN PO 07/30/24 11:45 Cancel Sucralfate 1 gm BID@0600,2200 PO 07/30/24 22:00 08/05/24 06:00 1 GM Polyethylene Glycol 17 gm DAILY PO 08/01/24 10:00 08/04/24 09:58 17 GM Potassium Chloride/Dextrose/ Sod Cl 1,000 ml @ 120 mls/hr Q8H20M IV 08/02/24 10:30 08/05/24 06:00 120 MLS/HR Metronidazole 100 ml @ 100 mls/hr Q8HR IV 08/02/24 14:00 08/05/24 06:00 100 MLS/HR Hydromorphone HCl 1 mg Q3HPRN PRN IV 08/02/24 10:30 08/05/24 08:31 1 MG Ondansetron HCl 4 mg Q4HPRN PRN IV 08/02/24 10:30 08/04/24 17:51 4 MG Docusate Sodium 100 mg BID PRN PO 08/03/24 07:30 Ibuprofen 600 mg Q8HP PRN PO 08/03/24 07:30 Acetaminophen/ Hydrocodone Bitart 1 tab Q4HPRN PRN PO 08/03/24 07:30 08/04/24 05:50 1 TAB Pantoprazole Sodium 40 mg BID IV 08/03/24 22:00 08/04/24 09:53 40 MG Enoxaparin Sodium 30 mg DAILY SC 08/04/24 11:30 08/04/24 13:25 30 MG Ciprofloxacin 200 ml @ 200 mls/hr Q12HR IV 08/04/24 22:00 UNV Ceftriaxone Sodium/Dextrose 50 ml @ 50 mls/hr DAILY@2000 IV 08/04/24 20:00 08/04/24 21:15 50 MLS/HR Doxycycline Hyclate 100 ml @ 50 mls/hr Q12H IV 08/04/24 18:00 08/05/24 06:00 50 MLS/HR Ketorolac Tromethamine 30 mg Q6HPRN PRN IV 08/05/24 09:15 Hold Laboratory Results Laboratory Tests 08/04/24 05:16 Urinalysis Test 08/02/24 05:30 Urine Color Light-yellow (Yellow) Urine Clarity Clear (Clear) Urine pH 6.0 (5.0-9.0) Urine Specific [place] 1.013 (1.001-1.035) Urine Protein Negative (Negative) Urine Ketones 1+ (Negative) H Urine Blood Negative /uL (Negative) Urine Nitrite Negative (Negative) Urine Bilirubin Negative (Negative) Urine Urobilinogen Normal mg/dL (Negative) Urine Leukocyte Esterase Trace /uL (Negative) Urine RBC 3 /hpf (0 - 4) Urine Microscopic WBC 6 /HPF (0-5) H Urine Squamous Epithelial Cells Few /hpf (<5) Urine Bacteria Few /hpf (None Seen) H Urine Mucus Few (None Seen) Urine Glucose Normal mg/dL (Normal) Urine Test Negative (Negative) Microbiology Microbiology Date/Time Source Procedure Growth Status 07/31/24 18:00 Voided Urine Urine Culture - Final Complete 07/31/24 15:07 Blood Blood Culture - Preliminary NO GROWTH AFTER 72 HOURS OF INCUBATION. Resulted Labs and/or images reviewed: Labs reviewed by me, Image(s) reviewed by me Assessment/Plan Assessment/Plan Acute appendicitis status post diagnostic laparoscopy, midline laparotomy, appendectomy, drainage of right ovarian cyst lysis of adhesions and placement of GWYN drain on 08/02/[address] Duran along with surgeon Dr. Mendoza, ANTIBIOTICS CHANGED TO ROCEPHIN AND DOXYCYCLINE BY JAZMÍN ASHLEY Recent Right ovarian follicular cyst 3 cm status post drainage by history card clerk Noncardiac chest pain echocardiogram 60% ejection fraction cardiology consult appreciated History of. preeclampsia Elevated D-dimer: PE ruled out GERD: Pantoprazole and Carafate NG SUCTION KUB X-RAY PENDING Time spent 45 minutes Plan discussed with: Patient My Orders Orders - DENNIS COLIN MD Procedure Category Date Status Time Blood Culture MIGUEL 08/04/24 In Process 09:54 Magnesium LAB 08/05/24 Logged 05:00 Date of Service: Aug 05, 2024 Billing Provider: DENNIS COLIN MD Common Visit Codes: [id number] INP/OBS CARE(HIGH) DENNIS COLIN MD Aug 05, 2024 09:47
--- NOTE | 2024-08-05 10:26 | DVHPN2 ---
Progress Note Date Seen: Aug 05, 2024 Resident Creating Document: SELVIN PLATT RESIDENT Medical Necessity Reason Pt with a Central, PICC or Fol: No Subjective Review of Systems Patient seen and examined at bedside. She is alert, oriented x3 . S/P diagnostic laparoscopy, midline laparotomy, appendectomy, drainage of right ovarian cyst lysis of adhesions and placement of GWYN drain day 3. Patient continued to have abdominal pain and not passing any flatus or having any bowel movement. No nausea, vomiting but low-grade fever 99 and tachycardia. Surgery recommended NPO, NG tube with low-grade continuous suction, and plain x-ray KUB. Patient is on IV ceftriaxone, IV doxycycline and IV metronidazole as per Infectious Disease. No other active complaint. Objective vital signs Vital Sign Date Time Temp Pulse Resp B/P (MAP) Pulse Ox O2 Delivery O2 Flow Rate FiO2 08/05/24 09:48 122 18 109/75 08/05/24 09:05 98.1 98 98.1 08/04/24 20:00 Nasal Cannula* 1 24 Total Intake and Output 08/04/24 08/04/24 08/05/24 15:00 23:00 07:00 Intake Total 100 ml 1810 ml 0 ml Balance 100 ml 1810 ml 0 ml medications Current Medications Medications Dose Ordered Sig/Robyn Route Start Time Stop Time Status Last Admin Dose Admin Acetaminophen/ Hydrocodone Bitart 1 tab Q4HPRN PRN PO 07/30/24 11:45 Cancel Sucralfate 1 gm BID@0600,2200 PO 07/30/24 22:00 08/05/24 06:00 1 GM Polyethylene Glycol 17 gm DAILY PO 08/01/24 10:00 08/04/24 09:58 17 GM Potassium Chloride/Dextrose/ Sod Cl 1,000 ml @ 120 mls/hr Q8H20M IV 08/02/24 10:30 08/05/24 06:00 120 MLS/HR Metronidazole 100 ml @ 100 mls/hr Q8HR IV 08/02/24 14:00 08/05/24 06:00 100 MLS/HR Ondansetron HCl 4 mg Q4HPRN PRN IV 08/02/24 10:30 08/04/24 17:51 4 MG Docusate Sodium 100 mg BID PRN PO 08/03/24 07:30 Ibuprofen 600 mg Q8HP PRN PO 08/03/24 07:30 Pantoprazole Sodium 40 mg BID IV 08/03/24 22:00 08/05/24 09:48 40 MG Enoxaparin Sodium 30 mg DAILY SC 08/04/24 11:30 08/05/24 09:49 30 MG Ciprofloxacin 200 ml @ 200 mls/hr Q12HR IV 08/04/24 22:00 UNV Ceftriaxone Sodium/Dextrose 50 ml @ 50 mls/hr DAILY@2000 IV 08/04/24 20:00 08/04/24 21:15 50 MLS/HR Doxycycline Hyclate 100 ml @ 50 mls/hr Q12H IV 08/04/24 18:00 08/05/24 06:00 50 MLS/HR Ketorolac Tromethamine 30 mg Q6HPRN PRN IV 08/05/24 09:15 Hold Examination Physical examination: General Appearance: Alert, Oriented X3, Cooperative, mild distress HEENT: Atraumatic, PERRLA, EOMI, Mucous membrane moist/pink Respiratory: Clear to auscultation, Normal air movement Cardiovascular: Regular rate, Normal S1, Normal S2, No murmurs, no chest wall tenderness Abdominal: Abdomen is mildly distended, flanks are full, tender, sluggish bowel sound, No hepatospenomegaly, No masses Extremities: No clubbing, No cyanosis, No edema, Normal pulses, No tenderness/swelling Skin: No rashes, No breakdown, No significant lesion Neuro: Normal gait, Normal speech, Strength at 5/5 X4 ext, Normal tone, Sensation intact, grossly intact cranial nerves. Psych/Mental Status: Mental status NL, Mood NL laboratory and microbiology Laboratory Tests 08/04/24 05:16 Test 08/04/24 05:16 Range/Units Serum Glucose 135 H 74-106 mg/dL Microbiology Date/Time Source Procedure Growth Status 07/31/24 18:00 Voided Urine Urine Culture - Final Complete 07/31/24 15:07 Blood Blood Culture - Preliminary NO GROWTH AFTER 72 HOURS OF INCUBATION. Resulted Labs and/or images reviewed: Labs reviewed by me, Image(s) reviewed by me Problem List/Assessment/Plan Problem List/Assessment/Plan Assessment: S/P diagnostic laparoscopy, midline laparotomy, appendectomy, drainage of right ovarian cyst lysis of adhesions and placement of GWYN drain day 3 Possible Ileus Abdominal pain due to acute appendicitis Acute gastritis Right ovarian cyst Abdominal pain Microcytic hypochromic anemia Plan/recommendation - NPO - NG tube with low continuos suction as per surgery - Pending KUB xray. -continue Protonix 40 mg IV b.i.d and carafate 1 gm po bid. -For constipation continue Colace 100 mg p.o. b.i.d., -IV antibiotic and pain medication as per primary team and infectious disease. -surgery, OBGYN and infectious disease on board. -we will continue following this patient. Plan discussed with Dr. Arenas Plan discussed with: Patient, Other My Orders My Orders Orders - SELVIN PLATT Procedure Category Date Status Time Bilat Lower Dvt US 08/05/24 Logged 10:23 Dietary Evaluation Review Comments: Encourage and monitor PO intake to meet 75% of her needs. Advance to diet as tolerated. Cntinue MVI supplements Expected Outcomes/Goals: Improved medical condition, healed sugical wounds SELVIN PLATT Aug 05, 2024 10:26
--- NOTE | 2024-08-05 11:18 | DVH ---
CHEST RADIOGRAPH Indication: NG TUBE PLACEMENT Technique: Single frontal view of the chest was obtained Comparison: XY CHEST PORTABLE on DOS: 07/29/24 FINDINGS: Lines and Tubes: None Lungs: No focal consolidation. Pleura: No effusion. No pneumothorax. Cardiomediastinal contours: Unremarkable Bones: No acute osseous abnormality. IMPRESSION: NG tube in stomach
--- NOTE | 2024-08-05 11:38 | DVH ---
EXAM: US Duplex Bilateral Lower Extremities Veins CLINICAL INDICATION: elevated d-dimer TECHNIQUE: Real-time duplex ultrasound scan of the bilateral lower extremity veins integrating B-mod e two-dimensional vascular structure, Doppler spectral analysis, color flow Doppler imaging and compr ession. COMPARISON: None FINDINGS: RIGHT DEEP VEINS: Unremarkable. No DVT in the right common femoral, femoral, proximal deep femoral or popliteal veins. The veins demonstrate normal color flow, are normally compressible, with normal phasic flow and/or augmentation response. RIGHT SUPERFICIAL VEINS: Unremarkable. No thrombus in the visualized right great saphenous vein. LEFT DEEP VEINS: Unremarkable. No DVT in the left common femoral, femoral, proximal deep femoral o r popliteal veins. The veins demonstrate normal color flow, are normally compressible, with normal p hasic flow and/or augmentation response. LEFT SUPERFICIAL VEINS: Unremarkable. No thrombus in the visualized left great saphenous vein. SOFT TISSUES: No acute findings. No popliteal cyst. OTHER FINDINGS: . None. . . .. IMPRESSION: No DVT.
--- NOTE | 2024-08-05 13:50 | DVH ---
CHEST RADIOGRAPH Indication: SOB AFTER SURGERY; ELEVATED D-DIMER Technique: Frontal and lateral view of the chest was obtained Comparison: None FINDINGS: Lines and Tubes: NG tube in the in the posterior fundus of the stomach. Linear atelectasis right lung base Lungs: Clear Pleura: No effusion. No pneumothorax. Cardiomediastinal contours: heart size upper limits of normal. No pleural effusions Bones: Unremarkable IMPRESSION: 1. Heart size upper limits normal 2. NG tube in the posterior fundus of the stomach Atelectasis right medial lung base
--- NOTE | 2024-08-05 14:02 | DVH ---
Exam: XY KUB ABDOMEN SINGLE VIEW Indication: ILEUS Comparison: CT scan dated 07/29/2024 Technique: A portable upright AP radiograph of the abdomen is obtained. Findings: A tubular structure is seen projecting over the lower abdomen with the tip at midline in the pelvis o f the level of bilateral hip joints. Gas distended bowel loop in the left upper quadrant likely spl enic flexure. Air-fluid level in nondistended small bowel loops noted. The diaphragms are not includ ed in the field of view and therefore evaluation for pneumoperitoneum is not possible based on the vi sualized area. Impression: 1. Gas distended bowel loop in the left upper quadrant measuring 5 cm likely the splenic flexure. No significant bowel wall edema. Further evaluation with CT scan could be completed if clinically indica jazzmine.
[2024-08-05 14:08] LABS: Basophils # (auto) 0 10 ^3/uL (0-0.2); Basophils % (auto) 0.1 % (0.0-2.0); Eosinophils # (auto) 0 10 ^3/uL (0-0.8); Lymphocytes # (auto) 0.6 10 ^3/uL (0.4-5.4); Mean Corpuscular Hemoglobin 24.7 pg (28.0-32.0); Mean Corpuscular Hgb Conc. 31.6 g/dL (32.0-36.0)
[2024-08-05 14:10] LABS: Eosinophils % (auto) 0.2 % (0.0-7.0); Hematocrit 27.5 % (36.0-46.0); Hemoglobin 8.7 g/dL (12.2-16.2); Lymphocytes % (auto) 4.1 % (10.0-50.0); Monocytes # (auto) 0.7 10 ^3/uL (0-1.3); Monocytes % (auto) 5.1 % (0.0-12.0); Neutrophils # (auto) 12.8 10 ^3/uL (1.6-8.6); Neutrophils % (auto) 90.5 % (37.0-80.0); Platelet Count (auto) 681 10^3/uL (140-450); Red Blood Cells 3.52 10^6/uL (4.0-5.20); White Blood Cell 14.2 10^3/uL (4.4-10.8)
[2024-08-05] MEDS: KETOROLAC TROMETH 30 MG/ML 1ML VIAL IV PRN (14:15)
[2024-08-05 14:25] LABS: Anion Gap 9 (5-15); Aspartate Aminotransferase 13 U/L (13-40); Calcium 9.4 mg/dL (8.7-10.4); Carbon Dioxide 29 mmol/L (20-31); Chloride 100 mmol/L (98-107); Magnesium 1.8 mg/dL (1.6-2.6); Sodium 138 mmol/L (136-145)
[2024-08-05 14:26] LABS: Total Protein 6.7 g/dL (5.7-8.2)
[2024-08-05 14:39] LABS: Alanine Aminotransferase 9 U/L (7-40); Alkaline Phosphatase 132 U/L (46-116); BUN/Creatinine Ratio 7.4 (10.0-20.0); Bilirubin, Total 0.3 mg/dL (0.2-1.0); Blood Urea Nitrogen < 5 mg/dL (9-23); Glucose 123 mg/dL (74-106); Potassium 3.3 mmol/L (3.5-5.1)
[2024-08-05] MEDS ORDERED: GASTROGRAFIN 30 ML SOL ONE (16:17)
[2024-08-05] MEDS ORDERED: IOHEXOL 300 MG/ML 100ML BOTTLE IJ ONE (20:21)
[2024-08-05] MEDS: cefTRIAXone SOD 1,000 MG VL ONE (22:57)
--- NOTE | 2024-08-05 23:33 | DVH ---
CRITICAL FINDINGS Examination: ABPLC COMPARISON: None. CONTRAST USED: Intravenous TECHNIQUE: A contrast CT study of the abdomen and pelvis is performed. The examination was performe d with 5 mm thin slices. Multiplanar reconstructions were obtained. CT scan done according to ALARA (As Low As Reasonably Achievable). FINDINGS: Lung base: Subsegmental atelectasis is seen in both lower lobes. Mild left pleural effusion. Liver: The liver is normal in size. The portal venous radicles are normal. There is no intrahepati c biliary radicle dilatation. Gallbladder: The gallbladder is well distended with mild sludge. The common bile duct is not dilate d. Pancreas: The pancreas is normal in size and shape. No focal lesion is seen within. The peripancre atic fat planes are normal. Spleen: The spleen is normal in size and does not show any focal abnormality. Retroperitoneum: Both adrenal glands are normal in size and morphology. There is no significant retroperitoneal lymphadenopathy. The kidneys are normal in size with no hydronephrosis or renal calculi. Vessels: Aorta, IVC and the mesenteric vessels appear normal. Stomach and bowel: The bowel loops are unremarkable. There is no ascites. Skeletal system: Dorsolumbar spine and the pelvic bone appear unremarkable. CT PELVIS: Appendix: The appendix is not visualized. Colon: The ascending, transverse, descending, sigmoid colon and rectum are unremarkable. Bladder: The urinary bladder is well distended with air foci. Uterus and ovaries: Uterus appears normal. A well-defined hypodense peripherally enhancing septated collection/cystic lesion measuring 35 x 54 m m is seen in the pouch of Kyle. A postoperative drain is seen with its tip in the pelvis. Mild ascites. No pelvic lymphadenopathy is identified. Mild pneumoperitoneum. IMPRESSION: 1. Mild left pleural effusion. 2. A well-defined hypodense peripherally enhancing septated collection/cystic lesion seen in the [place] ch of Kyle. 3. Postoperative drain is seen with its tip in the pelvis. 4. Mild ascites. 5. Mild pneumoperitoneum. 6. No abdominal mass or adenopathy. 7. No free air or inflammatory changes. 8. Additional chronic and/or ancillary findings as detailed above. 9. Suggest clinical correlation and follow-up as clinically deemed necessary. Electronically Signed 08/05/2024 23:32 Tru Alexander
[2024-08-06] VITALS (9 sets, daily range): BP systolic 122–131; BP diastolic 79–86; PULSE 104–116; RESP 16–19; TEMP 98–99.6; O2SAT 92–99
[2024-08-06 07:34] LABS: Basophils # (auto) 0 10 ^3/uL (0-0.2); Eosinophils # (auto) 0.1 10 ^3/uL (0-0.8); Hematocrit 24.1 % (36.0-46.0); Hemoglobin 7.7 g/dL (12.2-16.2); Monocytes # (auto) 0.7 10 ^3/uL (0-1.3); Red Blood Cells 3.09 10^6/uL (4.0-5.20)
[2024-08-06 07:36] LABS: Eosinophils % (auto) 0.7 % (0.0-7.0); Lymphocytes # (auto) 0.8 10 ^3/uL (0.4-5.4); Lymphocytes % (auto) 7.8 % (10.0-50.0); Mean Corpuscular Hgb Conc. 32.2 g/dL (32.0-36.0); Mean Corpuscular Volume 77.9 fL (80.0-100.0); Monocytes % (auto) 7.2 % (0.0-12.0); Neutrophils # (auto) 8.4 10 ^3/uL (1.6-8.6); Neutrophils % (auto) 84.3 % (37.0-80.0); Platelet Count (auto) 633 10^3/uL (140-450); Red Cell Distribution Width 17.9 % (11.8-14.3)
[2024-08-06 07:56] LABS: Alanine Aminotransferase 13 U/L (7-40); Albumin 3.6 g/dL (3.2-4.8); Alkaline Phosphatase 115 U/L (46-116); Anion Gap 10 (5-15); Aspartate Aminotransferase 20 U/L (13-40); Calcium 8.9 mg/dL (8.7-10.4); Carbon Dioxide 28 mmol/L (20-31); Chloride 102 mmol/L (98-107); Sodium 140 mmol/L (136-145)
[2024-08-06 08:06] LABS: BUN/Creatinine Ratio 7.9 (10.0-20.0); Bilirubin, Total 0.2 mg/dL (0.2-1.0); Blood Urea Nitrogen < 5 mg/dL (9-23); Glucose 111 mg/dL (74-106)
--- NOTE | 2024-08-06 08:24 | DVHPN2 ---
Progress Note - Surgical Date Seen: Aug 06, 2024 Post op day Post op day: 3 Subjective Patient reports: No new complaints, Feels better Review of Systems: HEENT:Normal, CVS:Normal, RESPIRATORY:Normal, GI:Abnormal (abdominal pain ), :Normal, MSK:Normal, NEURO:Normal Objective Vital signs Vital Sign Date Time Temp Pulse Resp B/P (MAP) Pulse Ox O2 Delivery O2 Flow Rate FiO2 08/06/24 08:00 Nasal Cannula* 3 32 08/06/24 05:00 98.6 104 18 129/86 (100) 99 98.6 Total Intake and Output 08/05/24 08/05/24 08/06/24 15:00 23:00 07:00 Intake Total 220 ml 400 ml Balance 220 ml 400 ml Medications Current Medications Medications Dose Ordered Sig/Robyn Route Start Time Stop Time Status Last Admin Dose Admin Acetaminophen/ Hydrocodone Bitart 1 tab Q4HPRN PRN PO 07/30/24 11:45 Cancel Sucralfate 1 gm BID@0600,2200 PO 07/30/24 22:00 08/05/24 06:00 1 GM Polyethylene Glycol 17 gm DAILY PO 08/01/24 10:00 08/04/24 09:58 17 GM Potassium Chloride/Dextrose/ Sod Cl 1,000 ml @ 120 mls/hr Q8H20M IV 08/02/24 10:30 08/06/24 05:32 120 MLS/HR Metronidazole 100 ml @ 100 mls/hr Q8HR IV 08/02/24 14:00 08/06/24 05:03 100 MLS/HR Ondansetron HCl 4 mg Q4HPRN PRN IV 08/02/24 10:30 08/05/24 14:27 4 MG Docusate Sodium 100 mg BID PRN PO 08/03/24 07:30 Ibuprofen 600 mg Q8HP PRN PO 08/03/24 07:30 Hold Pantoprazole Sodium 40 mg BID IV 08/03/24 22:00 08/05/24 22:44 40 MG Enoxaparin Sodium 30 mg DAILY SC 08/04/24 11:30 08/05/24 09:49 30 MG Ciprofloxacin 200 ml @ 200 mls/hr Q12HR IV 08/04/24 22:00 UNV Ceftriaxone Sodium/Dextrose 50 ml @ 50 mls/hr DAILY@2000 IV 08/04/24 20:00 08/05/24 23:19 50 MLS/HR Doxycycline Hyclate 100 ml @ 50 mls/hr Q12H IV 08/04/24 18:00 08/06/24 06:19 50 MLS/HR Ketorolac Tromethamine 30 mg Q6HPRN PRN IV 08/05/24 09:15 08/06/24 03:44 30 MG Laboratory Laboratory Tests 08/06/24 07:15 Test 08/06/24 07:15 Range/Units Serum Glucose 111 H 74-106 mg/dL Microbiology Date/Time Source Procedure Growth Status 08/04/24 10:30 Blood Blood Culture - Preliminary NO GROWTH AFTER 24 HOURS OF INCUBATION. Resulted 07/31/24 18:00 Voided Urine Urine Culture - Final Complete Examination: GENERAL:Normal, HEENT:Normal, NECK:Normal, LUNGS:Normal, CVS:Normal, ABDOMEN:Abnormal (ROLY drain, tender, distended abdomen ), MSK:Normal, SKIN:Normal, NEURO:Normal Problem List/Assessment/Plan Problems: (1) Laparoscopic surgical procedure converted to open procedure (2) S/P appendectomy (3) Abdominal distention (4) Abdominal pain Assessment and Plan patient complaint of abdominal pain ,wounds clean dry and intact ,Roly drain serous sanguineous fluid, abdomen distended, tender to palpation , denies nausea or vomiting reduce use of narcotics Plan NPO KUB pending Place NG NGT to LCS patient to ambulate continue IV antibiotics pending CBC, CMP Discussed plan with Dr. Mendoza and agrees 08/06/24 - labs, image reports and notes reviewed , wbc ok, no new complaints , patient states feeling better today , i have urge to use the restroom , abdomen distended, no flatus, no BM, ROLY drain serous fluid 20cc, denies nausea and vomiting Plan: patient to ambulate several times a day outside of room around nurses station a few times continue IV hydration continue with Toradol for pain wear abdominal binder while ambulating may remove abdominal binder while laying in bed NPO until she passes gas My Orders My Orders Orders - ELENITA GONZALEZ GAME OPERATOR Procedure Category Date Status Time Ng To Lcs [id number] 08/05/24 In Process 08:36 Place Ng ORDERS 08/05/24 Transmitted 08:36 Ketorolac Injection PHA 08/05/24 In Process (Toradol Injection) 09:15 Ct Abd Pelvis W CT 08/05/24 Resulted Con-Oral & Iv 16:07 Plan discussed with Plan discussed with: Patient, Other (Dr. Mendoza ) Visit Coding Surgery Date of Service if different f: Aug 06, 2024 Billing Provider: SHARA MENDOZA MD Surgery Visit Codes: [id number] INP/OBS CARE(HIGH) ELENITA GONZALEZ GAME OPERATOR Aug 06, 2024 08:24
--- NOTE | 2024-08-06 11:07 | DVHPN2 ---
Progress Note Date Seen: Aug 06, 2024 Resident Creating Document: NASEEM MEYER RESIDENT Medical Necessity Reason Pt with a Central, PICC or Fol: No Subjective Review of Systems Patient is seen examined at bedside. Patient denies any complaints of nausea, vomiting. Continue appropriate abdominal pain. No distention. Patient is passing gas as well. Patient is albuterol now. We will start with ice chips, if tolerating rales we will advanced to clear liquid diet. If she have nausea and vomiting, we will keep her NPO again. Objective vital signs Vital Sign Date Time Temp Pulse Resp B/P (MAP) Pulse Ox O2 Delivery O2 Flow Rate FiO2 08/06/24 09:00 98.0 110 19 129/83 (98) 92 98.0 08/06/24 08:00 Nasal Cannula* 3 32 Total Intake and Output 08/05/24 08/05/24 08/06/24 15:00 23:00 07:00 Intake Total 220 ml 400 ml Balance 220 ml 400 ml medications Current Medications Medications Dose Ordered Sig/Robyn Route Start Time Stop Time Status Last Admin Dose Admin Acetaminophen/ Hydrocodone Bitart 1 tab Q4HPRN PRN PO 07/30/24 11:45 Cancel Sucralfate 1 gm BID@0600,2200 PO 07/30/24 22:00 08/05/24 06:00 1 GM Polyethylene Glycol 17 gm DAILY PO 08/01/24 10:00 08/04/24 09:58 17 GM Potassium Chloride/Dextrose/ Sod Cl 1,000 ml @ 120 mls/hr Q8H20M IV 08/02/24 10:30 08/06/24 10:12 120 MLS/HR Metronidazole 100 ml @ 100 mls/hr Q8HR IV 08/02/24 14:00 08/06/24 05:03 100 MLS/HR Ondansetron HCl 4 mg Q4HPRN PRN IV 08/02/24 10:30 08/05/24 14:27 4 MG Docusate Sodium 100 mg BID PRN PO 08/03/24 07:30 Ibuprofen 600 mg Q8HP PRN PO 08/03/24 07:30 Hold Pantoprazole Sodium 40 mg BID IV 08/03/24 22:00 08/06/24 09:49 40 MG Enoxaparin Sodium 30 mg DAILY SC 08/04/24 11:30 08/06/24 09:50 30 MG Ciprofloxacin 200 ml @ 200 mls/hr Q12HR IV 08/04/24 22:00 UNV Ceftriaxone Sodium/Dextrose 50 ml @ 50 mls/hr DAILY@2000 IV 08/04/24 20:00 08/05/24 23:19 50 MLS/HR Doxycycline Hyclate 100 ml @ 50 mls/hr Q12H IV 08/04/24 18:00 08/06/24 06:19 50 MLS/HR Ketorolac Tromethamine 30 mg Q6HPRN PRN IV 08/05/24 09:15 08/06/24 03:44 30 MG Examination: GENERAL:Normal, HEENT:Normal, NECK:Normal, LUNGS:Normal, CVS:Normal, ABDOMEN:Normal, MSK:Normal, NEURO:Normal, :Normal laboratory and microbiology Laboratory Tests 08/06/24 07:15 Test 08/06/24 07:15 Range/Units Serum Glucose 111 H 74-106 mg/dL Microbiology Date/Time Source Procedure Growth Status 08/04/24 10:30 Blood Blood Culture - Preliminary NO GROWTH AFTER 48 HOURS OF INCUBATION. Resulted 07/31/24 18:00 Voided Urine Urine Culture - Final Complete Problem List/Assessment/Plan Problem List/Assessment/Plan Abdominal pain due to acute appendicitis Acute gastritis Right ovarian cyst Abdominal pain Microcytic hypochromic anemia Plan/recommendation Dr Arenas -Advanced diet as per surgical team. Given patient is passing gas, start with ice chips, Advanced clear liquid diet. If nausea or vomiting keep her NPO again. -S/P Diagnostic laparoscopy & Midline laparotomy with appendectomy and Drainage of right ovarian cyst. Clear liquid diet. Advance as tolerated. continue current management -continue Protonix 40 mg IV daily -IV antibiotic as per primary care, antibiotic has been changed given patient's continued temperature, elevated WBC count. -advanced diet as per toleration, maintained hydration. -surgery and OBGYN on board. -we will continue following this patient. Plan discussed with: Patient, Other (RN) Dietary Evaluation Review Comments: Encourage and monitor PO intake to meet 75% of her needs. Advance to diet as tolerated. Cntinue MVI supplements Expected Outcomes/Goals: Improved medical condition, healed sugical wounds NASEEM MEYER RESIDENT Aug 06, 2024 11:07
--- NOTE | 2024-08-06 11:37 | DVHPN2 ---
Reviewed: Care Plan, H&P, Labs, Medications, Previous Orders, Radiology Changes from previous H/P or p: No Changes Cardiovascular: Chest Pain Gastrointestinal: Nausea, Vomiting, Abdominal Pain Objective Vitals Vital Signs Date Time Temp Pulse Resp B/P (MAP) Pulse Ox O2 Delivery O2 Flow Rate FiO2 08/06/24 09:00 98.0 110 19 129/83 (98) 92 98.0 08/06/24 08:00 Nasal Cannula* 3 32 Intake/Output Intake and Output 08/06/24 07:00 Intake Total 620 ml Balance 620 ml Intake Oral 400 ml IV Total 220 ml # Voids 6 Medications Current Medications Medications Dose Ordered Sig/Robyn Route Start Time Stop Time Status Last Admin Dose Admin Acetaminophen/ Hydrocodone Bitart 1 tab Q4HPRN PRN PO 07/30/24 11:45 Cancel Sucralfate 1 gm BID@0600,2200 PO 07/30/24 22:00 08/05/24 06:00 1 GM Polyethylene Glycol 17 gm DAILY PO 08/01/24 10:00 08/04/24 09:58 17 GM Potassium Chloride/Dextrose/ Sod Cl 1,000 ml @ 120 mls/hr Q8H20M IV 08/02/24 10:30 08/06/24 10:12 120 MLS/HR Metronidazole 100 ml @ 100 mls/hr Q8HR IV 08/02/24 14:00 08/06/24 05:03 100 MLS/HR Ondansetron HCl 4 mg Q4HPRN PRN IV 08/02/24 10:30 08/05/24 14:27 4 MG Docusate Sodium 100 mg BID PRN PO 08/03/24 07:30 Ibuprofen 600 mg Q8HP PRN PO 08/03/24 07:30 Hold Pantoprazole Sodium 40 mg BID IV 08/03/24 22:00 08/06/24 09:49 40 MG Enoxaparin Sodium 30 mg DAILY SC 08/04/24 11:30 08/06/24 09:50 30 MG Ciprofloxacin 200 ml @ 200 mls/hr Q12HR IV 08/04/24 22:00 UNV Ceftriaxone Sodium/Dextrose 50 ml @ 50 mls/hr DAILY@2000 IV 08/04/24 20:00 08/05/24 23:19 50 MLS/HR Doxycycline Hyclate 100 ml @ 50 mls/hr Q12H IV 08/04/24 18:00 08/06/24 06:19 50 MLS/HR Ketorolac Tromethamine 30 mg Q6HPRN PRN IV 08/05/24 09:15 08/06/24 11:13 30 MG Laboratory Results Laboratory Tests 08/06/24 07:15 Chemistry Test 08/05/24 13:57 08/06/24 07:15 Albumin 4.0 g/dL (3.2-4.8) 3.6 g/dL (3.2-4.8) Calcium Level 9.4 mg/dL (8.7-10.4) 8.9 mg/dL (8.7-10.4) Magnesium Level 1.8 mg/dL (1.6-2.6) Total Protein 6.7 g/dL (5.7-8.2) 6.0 g/dL (5.7-8.2) LFT Test 08/05/24 13:57 08/06/24 07:15 Alanine Aminotransferase (ALT) 9 U/L (7-40) 13 U/L (7-40) Alkaline Phosphatase 132 U/L (46-116) H 115 U/L (46-116) Aspartate Amino Transferase (AST) 13 U/L (13-40) 20 U/L (13-40) Total Bilirubin 0.3 mg/dL (0.2-1.0) 0.2 mg/dL (0.2-1.0) Urinalysis Test 08/02/24 05:30 Urine Color Light-yellow (Yellow) Urine Clarity Clear (Clear) Urine pH 6.0 (5.0-9.0) Urine Specific [place] 1.013 (1.001-1.035) Urine Protein Negative (Negative) Urine Ketones 1+ (Negative) H Urine Blood Negative /uL (Negative) Urine Nitrite Negative (Negative) Urine Bilirubin Negative (Negative) Urine Urobilinogen Normal mg/dL (Negative) Urine Leukocyte Esterase Trace /uL (Negative) Urine RBC 3 /hpf (0 - 4) Urine Microscopic WBC 6 /HPF (0-5) H Urine Squamous Epithelial Cells Few /hpf (<5) Urine Bacteria Few /hpf (None Seen) H Urine Mucus Few (None Seen) Urine Glucose Normal mg/dL (Normal) Urine Test Negative (Negative) Microbiology Microbiology Date/Time Source Procedure Growth Status 08/04/24 10:30 Blood Blood Culture - Preliminary NO GROWTH AFTER 48 HOURS OF INCUBATION. Resulted 07/31/24 18:00 Voided Urine Urine Culture - Final Complete Labs and/or images reviewed: Labs reviewed by me, Image(s) reviewed by me Assessment/Plan Assessment/Plan Acute appendicitis status post diagnostic laparoscopy, midline laparotomy, appendectomy, drainage of right ovarian cyst lysis of adhesions and placement of GWYN drain on 08/02/[address] Duran along with surgeon Dr. Mendoza, patient on Rocephin doxycycline and Flagyl Recent Right ovarian follicular cyst 3 cm status post drainage by leather softener Noncardiac chest pain echocardiogram 60% ejection fraction cardiology consult appreciated History of. preeclampsia Elevated D-dimer: PE ruled out GERD: Pantoprazole and Carafate Start on liquid diet and advance diet as tolerated as per the recommendation of the surgeon Physical therapy KUB x-ray 08-06-24 negative for any acute pathology Time spent 45 minutes Plan discussed with: Patient Date of Service: Aug 06, 2024 Billing Provider: DENNIS COLIN MD Common Visit Codes: [id number] INP/OBS CARE(HIGH) DENNIS COLIN MD Aug 06, 2024 11:36
[2024-08-06] MEDS: DOCUSATE SOD 100 MG CAP PO PRN (18:31)
--- NOTE | 2024-08-06 18:48 | DVHINCON2 ---
Date of service: Aug 04, 2024 Family History: Patient reports no known family medical history. Allergies: Coded Allergies: NO KNOWN ALLERGIES (Unverified , 04/09/10) Home Meds No Active Prescriptions or Reported Meds Vital Signs Vital Signs Date Time Temp Pulse Resp B/P (MAP) Pulse Ox O2 Delivery O2 Flow Rate FiO2 08/06/24 17:00 98.6 116 16 131/86 (101) 96 98.6 08/06/24 08:00 Nasal Cannula* 3 32 Labs/Diagnostic Data Labs Test 08/06/24 07:15 08/05/24 14:39 08/05/24 13:57 08/04/24 17:48 Range/Units White Blood Count 10.0 # 4.4-10.8 10^3/uL Red Blood Count 3.09 L 4.0-5.20 10^6/uL Hemoglobin 7.7 L 12.2-16.2 g/dL Hematocrit 24.1 #L 36.0-46.0 % Mean Corpuscular Volume 77.9 L 80.0-100.0 fL Mean Corpuscular Hemoglobin 25.0 L 28.0-32.0 pg Mean Corpuscular Hemoglobin Concent 32.2 32.0-36.0 g/dL Red Cell Distribution Width 17.9 H 11.8-14.3 % Platelet Count 633 H 140-450 10^3/uL Mean Platelet Volume 6.4 L 6.9-10.8 fL Neutrophils (%) (Auto) 84.3 H 37.0-80.0 % Lymphocytes (%) (Auto) 7.8 L 10.0-50.0 % Monocytes (%) (Auto) 7.2 0.0-12.0 % Eosinophils (%) (Auto) 0.7 0.0-7.0 % Basophils (%) (Auto) 0.0 0.0-2.0 % Neutrophils # (Auto) 8.4 1.6-8.6 10 ^3/uL Lymphocytes # (Auto) 0.8 0.4-5.4 10 ^3/uL Monocytes # (Auto) 0.7 0-1.3 10 ^3/uL Eosinophils # (Auto) 0.1 0-0.8 10 ^3/uL Basophils # (Auto) 0 0-0.2 10 ^3/uL Nucleated Red Blood Cells 0.0 % Sodium Level 140 136-145 mmol/L Potassium Level 3.0 L 3.5-5.1 mmol/L Chloride Level 102 98-107 mmol/L Carbon Dioxide Level 28 20-31 mmol/L Anion Gap 10 5-15 Blood Urea Nitrogen < 5 L 9-23 mg/dL Creatinine 0.63 0.550-1.02 mg/dL Glomerular Filtration Rate Calc 122 >90 mL/min BUN/Creatinine Ratio 7.9 L 10.0-20.0 Serum Glucose 111 H 74-106 mg/dL Calcium Level 8.9 8.7-10.4 mg/dL Total Bilirubin 0.2 0.2-1.0 mg/dL Aspartate Amino Transferase (AST) 20 13-40 U/L Alanine Aminotransferase (ALT) 13 7-40 U/L Alkaline Phosphatase 115 46-116 U/L Total Protein 6.0 5.7-8.2 g/dL Albumin 3.6 3.2-4.8 g/dL Magnesium Level 1.8 1.6-2.6 mg/dL HIV (1&2) Antibody Negative Negative Test 08/03/24 16:32 08/03/24 14:30 08/03/24 05:32 08/02/24 05:30 Range/Units Troponin I High Sensitivity < 3 L </=34 ng/L D-Dimer, Quantitative 8.06 H 0.0-0.49 mg/L FEU Hemoglobin A1c < 3.8 <5.7 % A1C Triglycerides Level 71 < 150 mg/dL Cholesterol Level 122 < 200 mg/dL LDL Cholesterol 78 < 100 mg/dL HDL Cholesterol 28 L 40-59 mg/dL Thyroid Stimulating Hormone (TSH) 0.71 0.55-4.78 uIU/mL Urine Color Light-yellow Yellow Urine Clarity Clear Clear Urine pH 6.0 5.0-9.0 Urine Specific [place] 1.013 1.001-1.035 Urine Protein Negative Negative Urine Ketones 1+ H Negative Urine Blood Negative Negative /uL Urine Nitrite Negative Negative Urine Bilirubin Negative Negative Urine Urobilinogen Normal Negative mg/dL Urine Leukocyte Esterase Trace Negative /uL Urine RBC 3 0 - 4 /hpf Urine Microscopic WBC 6 H 0-5 /HPF Urine Squamous Epithelial Cells Few <5 /hpf Urine Bacteria Few H None Seen /hpf Urine Mucus Few None Seen Urine Glucose Normal Normal mg/dL Urine Test Negative Negative Test 08/02/24 05:25 07/31/24 15:07 07/29/24 10:59 Range/Units Prothrombin Time 11.4 9.3-11.8 sec Prothrombin Time INR 1.08 0.9-1.15 Activated Partial Thromboplast Time 34.2 24.5-34.5 SEC Beta HCG, Quantitative 0.5 L 1.5-4.2 mIU/mL Erythrocyte Sedimentation Rate 108 H 0-20 mm/hr Iron Level 17 L 50-170 ug/dL Total Iron Binding Capacity 206 L 250-425 ug/dL Percent Iron Saturation 8.3 L 15-50 % C-Reactive Protein High Sensitivity 8.14 H <1.0 mg/dL Platelet Estimate Markedly increased Anisocytosis (manual) Slight Microcytosis Slight Lipase 28 12-53 U/L Microbiology Date/Time Source Procedure Growth Status 08/04/24 10:30 Blood Blood Culture - Preliminary NO GROWTH AFTER 48 HOURS OF INCUBATION. Resulted 07/31/24 18:00 Voided Urine Urine Culture - Final Complete Problems(with codes): (1) Pelvic inflammatory disease (2) Pelvic mass (3) Severe sepsis (4) Thrombocytosis (5) Right ovarian cyst (6) Abdominal distention Plan/Recommendation ASSESSMENT AND PLAN: ID Problem List: - Acute appendicitis - Right ovarian cyst - Status post section on 07/02/2024 - Possible pelvic inflammatory disease (PID) - Fever - Abdominal pain Assessment This is a female patient with a past medical history of section on 07/02/2024, who presents with abdominal pain and fever. She has experienced abdominal pain multiple times over the last four days. She reports no diarrhea. She is and has another child without any complications. Vital signs showed tachycardia and a fever up to 100.7F. CT abdomen and pelvis revealed findings consistent with acute appendicitis and a right ovarian cyst measuring 3 x 1 x 3 cm involving the right ovary. The patient underwent laparoscopic appendectomy and right ovarian cystectomy. Intraoperative findings included: - Inflamed appendix adhering to the right lower abdominal wall - Right ovarian cyst - Minimal pelvic free fluid, possibly due to ruptured ovarian cyst Plan: - Continue antibiotics: doxycycline - Monitor vital signs and laboratory results - Follow up on pathology results from surgery - Monitor surgical sites for signs of infection - Consider discharge on oral antibiotics when clinically stable - Arrange follow-up for drain management in approximately two weeks Isolation Precautions: standard Assessment and plan were discussed with the patient as written above Plan is subject to change pending incorporation of new incoming information/diagnostics. Updates may be added as addendum at the bottom (OR TOP) of this note Thank you. debbie caceres MD History: The patient's chart and medications were reviewed in detail, and the patient was seen and examined. History obtained from: patient The patient is a female with a past medical history of section on 07/02/2024, who presents with abdominal pain and fever. She has been experiencing abdominal pain multiple times over the last four days. She denies diarrhea. This is her first child, and she is currently another child without any complications. She developed a fever of 100.7F and tachycardia with a heart rate of [address] abdomen and pelvis showed a 3 x 1 x 3 cm mass involving the right ovary and findings consistent with acute appendicitis. There was also minimal pelvic free fluid noted. She was taken to the operating room for a laparoscopic appendectomy and right ovarian cystectomy. Intraoperative findings included an inflamed appendix adhering to the right lower abdominal wall and a right ovarian cyst. A drain was placed in the pelvis. Review of Systems: A complete 10-system review of systems was completed and negative except as noted in the HPI or here. ROS: - CONSTITUTIONAL: Reports fever; denies weight loss and chills. - HEENT: Denies changes in vision and hearing. - RESPIRATORY: Denies shortness of breath and cough. - CV: Denies palpitations and chest pain. - GI: Reports abdominal pain; denies nausea, vomiting, and diarrhea. - : Denies dysuria and urinary frequency. - MSK: Denies myalgia and joint pain. - SKIN: Denies rash and pruritus. - NEUROLOGICAL: Denies headache and syncope. - PSYCHIATRIC: Denies recent changes in mood; denies anxiety and depression. Past Medical History: Diagnosis Date section 07/02/2024 Past Surgical History: section on 07/02/2024 Home Medications: Not provided. Allergies: No known drug allergies. Family History: Family history not provided. Social History: Socioeconomic History Marital status: Not provided Number of children: Currently ; has at least one other child Tobacco Use Smoking status: Not provided Substance Use Alcohol use: Not provided Drug use: Not provided Other Sexual activity: Not provided Objective: Vital Signs on Arrival: Temp: 98.1 F Pulse: 93 bpm Most Recent Vital Signs: Temp: 100.7 F BP: 107/81 mmHg Pulse: 114 bpm Physical Exam: General: Appears ill; tachycardic. Neck: Supple. No masses. HEENT: PERRL. Normal lids and conjunctiva. Moist mucous membranes. Oropharynx without lesions, exudates, or excessive erythema. Normal appearance of the external aspects of the nose and ears. Heart: Regular rhythm, tachycardic. No murmur. No lower extremity edema. Lungs: Normal respiratory effort. Clear to auscultation bilaterally. No wheezes. No crackles. Abdomen: Soft. Tender in the right lower quadrant. Non-distended. No masses or abdominal hernia. Msk: No digital cyanosis. Normal strength and tone in all 4 limbs. Skin: Warm and dry, no rashes. Neuro: Alert. No facial droop or slurred speech. Extra-ocular movements intact. Sensation intact to soft touch in all 4 limbs. Psych: Appropriate mood. Full affect. Oriented to person, place, time, and situation. Lines: Active Lines - Pelvic drain in place Diagnostic Studies: Available diagnostic studies were reviewed personally. Significant relevant results and findings are outlined below or addressed in the Assessment and Plan above. Pertinent Imaging: Recent Results CT Abdomen and Pelvis: Impression: - Findings consistent with acute appendicitis. - 3 x 1 x 3 cm right ovarian cyst involving the right ovary. - Minimal pelvic free fluid, which may be due to ruptured ovarian cyst. Laboratory Studies: - WBC count elevated at 8.46 K/L. - Hemoglobin: 10.6 g/dL. Plan discussed with: Patient DEBBIE CACERES MD Aug 06, 2024 18:48
--- NOTE | 2024-08-06 19:01 | DVHPN2 ---
Consult Progress Note Date Seen: Aug 06, 2024 Subjective Patient reports: Other (abdominal pain is minimal , fevers are resolved , no diarrhea or pain with bowel movements , 25ccs of preliminary drainage coming from GWYN drain ) Objective vital signs Vital Sign Date Time Temp Pulse Resp B/P (MAP) Pulse Ox O2 Delivery O2 Flow Rate FiO2 08/06/24 17:00 98.6 116 16 131/86 (101) 96 98.6 08/06/24 08:00 Nasal Cannula* 3 32 Total Intake and Output 08/05/24 08/05/24 08/06/24 15:00 23:00 07:00 Intake Total 220 ml 400 ml Balance 220 ml 400 ml medications Current Medications Medications Dose Ordered Sig/Robyn Route Start Time Stop Time Status Last Admin Dose Admin Acetaminophen/ Hydrocodone Bitart 1 tab Q4HPRN PRN PO 07/30/24 11:45 Cancel Sucralfate 1 gm BID@0600,2200 PO 07/30/24 22:00 08/05/24 06:00 1 GM Polyethylene Glycol 17 gm DAILY PO 08/01/24 10:00 08/04/24 09:58 17 GM Potassium Chloride/Dextrose/ Sod Cl 1,000 ml @ 120 mls/hr Q8H20M IV 08/02/24 10:30 08/06/24 10:12 120 MLS/HR Metronidazole 100 ml @ 100 mls/hr Q8HR IV 08/02/24 14:00 08/06/24 13:47 100 MLS/HR Ondansetron HCl 4 mg Q4HPRN PRN IV 08/02/24 10:30 08/06/24 17:37 4 MG Docusate Sodium 100 mg BID PRN PO 08/03/24 07:30 08/06/24 18:31 100 MG Ibuprofen 600 mg Q8HP PRN PO 08/03/24 07:30 Hold Pantoprazole Sodium 40 mg BID IV 08/03/24 22:00 08/06/24 09:49 40 MG Enoxaparin Sodium 30 mg DAILY SC 08/04/24 11:30 08/06/24 09:50 30 MG Ciprofloxacin 200 ml @ 200 mls/hr Q12HR IV 08/04/24 22:00 UNV Ceftriaxone Sodium/Dextrose 50 ml @ 50 mls/hr DAILY@2000 IV 08/04/24 20:00 08/05/24 23:19 50 MLS/HR Doxycycline Hyclate 100 ml @ 50 mls/hr Q12H IV 08/04/24 18:00 08/06/24 17:37 50 MLS/HR Ketorolac Tromethamine 30 mg Q6HPRN PRN IV 08/05/24 09:15 08/06/24 17:39 30 MG Physical Exam: General: Appears ill; tachycardic. Neck: Supple. No masses. HEENT: PERRL. Normal lids and conjunctiva. Moist mucous membranes. Oropharynx without lesions, exudates, or excessive erythema. Normal appearance of the external aspects of the nose and ears. Heart: Regular rhythm, tachycardic. No murmur. No lower extremity edema. Lungs: Normal respiratory effort. Clear to auscultation bilaterally. No wheezes. No crackles. Abdomen: Soft. Tender in the right lower quadrant. Non-distended. No masses or abdominal hernia. Msk: No digital cyanosis. Normal strength and tone in all 4 limbs. Skin: Warm and dry, no rashes. Neuro: Alert. No facial droop or slurred speech. Extra-ocular movements intact. Sensation intact to soft touch in all 4 limbs. Psych: Appropriate mood. Full affect. Oriented to person, place, time, and situation laboratory and microbiology Laboratory Tests 08/06/24 07:15 Test 08/06/24 07:15 Range/Units Serum Glucose 111 H 74-106 mg/dL Problem List/Assessment/Plan Problems(with codes): (1) Anemia (2) Abdominal pain (3) Thrombocytosis (4) Gastritis (5) Right ovarian cyst (6) Abdominal distention (7) Pelvic inflammatory disease (8) Pelvic mass (9) Laparoscopic surgical procedure converted to open procedure Problem List/Assessment/Plan ASSESSMENT AND PLAN: ID Problem List: - Acute appendicitis - Right ovarian cyst - Status post section on 07/02/2024 - Possible pelvic inflammatory disease (PID) - Fever - Abdominal pain Assessment This is a female patient with a past medical history of section on 07/02/2024, who presents with abdominal pain and fever. She has experienced abdominal pain multiple times over the last four days. She reports no diarrhea. She is and has another child without any complications. Vital signs showed tachycardia and a fever up to 100.7F. CT abdomen and pelvis revealed findings consistent with acute appendicitis and a right ovarian cyst measuring 3 x 1 x 3 cm involving the right ovary. The patient underwent laparoscopic appendectomy and right ovarian cystectomy. Intraoperative findings included: - Inflamed appendix adhering to the right lower abdominal wall - Right ovarian cyst - Minimal pelvic free fluid, possibly due to ruptured ovarian cyst 08/05: whitecount is 14.2 and patient has minimal drainage 08/06: whitecount is 10 , still tachycardic Plan: - patient can continue IV antibiotics and can also trasition to oral doxycycline 100 mg 2x a day and Flagyl 500 mg 3x a day when patient is ready for discharge to complete a total of 14 days of antibiotics - recommend patient is monitored for at least 24 hours on oral antibiotics prior to discharge to ensure patient is tolerating them well - follow up on mass pathology results - Continue antibiotics: doxycycline - Monitor vital signs and laboratory results - Follow up on pathology results from surgery - Monitor surgical sites for signs of infection - Consider discharge on oral antibiotics when clinically stable - Arrange follow-up for drain management in approximately two weeks Isolation Precautions: standard Plan discussed with: Other Dietary Evaluation Review Comments: Encourage and monitor PO intake to meet 75% of her needs. Advance to diet as tolerated. Cntinue MVI supplements Expected Outcomes/Goals: Improved medical condition, healed sugical wounds DEBBIE CASE MD Aug 06, 2024 19:01
--- NOTE | 2024-08-06 19:01 | DVHPN2 ---
Consult Progress Note Date Seen: Aug 05, 2024 Subjective Patient reports: Other (no fevers , patients aabdominal pain is improving and abdomen is mildly tender in right lower quadrant ) Objective vital signs Vital Sign Date Time Temp Pulse Resp B/P (MAP) Pulse Ox O2 Delivery O2 Flow Rate FiO2 08/06/24 17:00 98.6 116 16 131/86 (101) 96 98.6 08/06/24 08:00 Nasal Cannula* 3 32 Total Intake and Output 08/05/24 08/05/24 08/06/24 15:00 23:00 07:00 Intake Total 220 ml 400 ml Balance 220 ml 400 ml medications Current Medications Medications Dose Ordered Sig/Robyn Route Start Time Stop Time Status Last Admin Dose Admin Acetaminophen/ Hydrocodone Bitart 1 tab Q4HPRN PRN PO 07/30/24 11:45 Cancel Sucralfate 1 gm BID@0600,2200 PO 07/30/24 22:00 08/05/24 06:00 1 GM Polyethylene Glycol 17 gm DAILY PO 08/01/24 10:00 08/04/24 09:58 17 GM Potassium Chloride/Dextrose/ Sod Cl 1,000 ml @ 120 mls/hr Q8H20M IV 08/02/24 10:30 08/06/24 10:12 120 MLS/HR Metronidazole 100 ml @ 100 mls/hr Q8HR IV 08/02/24 14:00 08/06/24 13:47 100 MLS/HR Ondansetron HCl 4 mg Q4HPRN PRN IV 08/02/24 10:30 08/06/24 17:37 4 MG Docusate Sodium 100 mg BID PRN PO 08/03/24 07:30 08/06/24 18:31 100 MG Ibuprofen 600 mg Q8HP PRN PO 08/03/24 07:30 Hold Pantoprazole Sodium 40 mg BID IV 08/03/24 22:00 08/06/24 09:49 40 MG Enoxaparin Sodium 30 mg DAILY SC 08/04/24 11:30 08/06/24 09:50 30 MG Ciprofloxacin 200 ml @ 200 mls/hr Q12HR IV 08/04/24 22:00 UNV Ceftriaxone Sodium/Dextrose 50 ml @ 50 mls/hr DAILY@2000 IV 08/04/24 20:00 08/05/24 23:19 50 MLS/HR Doxycycline Hyclate 100 ml @ 50 mls/hr Q12H IV 08/04/24 18:00 08/06/24 17:37 50 MLS/HR Ketorolac Tromethamine 30 mg Q6HPRN PRN IV 08/05/24 09:15 08/06/24 17:39 30 MG Physical Exam: General: Appears ill; tachycardic. Neck: Supple. No masses. HEENT: PERRL. Normal lids and conjunctiva. Moist mucous membranes. Oropharynx without lesions, exudates, or excessive erythema. Normal appearance of the external aspects of the nose and ears. Heart: Regular rhythm, tachycardic. No murmur. No lower extremity edema. Lungs: Normal respiratory effort. Clear to auscultation bilaterally. No wheezes. No crackles. Abdomen: Soft. Tender in the right lower quadrant. Non-distended. No masses or abdominal hernia. Msk: No digital cyanosis. Normal strength and tone in all 4 limbs. Skin: Warm and dry, no rashes. Neuro: Alert. No facial droop or slurred speech. Extra-ocular movements intact. Sensation intact to soft touch in all 4 limbs. Psych: Appropriate mood. Full affect. Oriented to person, place, time, and situation laboratory and microbiology Laboratory Tests 08/06/24 07:15 Test 08/06/24 07:15 Range/Units Serum Glucose 111 H 74-106 mg/dL Problem List/Assessment/Plan Problems(with codes): (1) Anemia (2) Abdominal pain (3) Thrombocytosis (4) Gastritis (5) Right ovarian cyst (6) Abdominal distention (7) Pelvic inflammatory disease (8) Pelvic mass Problem List/Assessment/Plan ASSESSMENT AND PLAN: ID Problem List: - Acute appendicitis - Right ovarian cyst - Status post section on 07/02/2024 - Possible pelvic inflammatory disease (PID) - Fever - Abdominal pain Assessment This is a female patient with a past medical history of section on 07/02/2024, who presents with abdominal pain and fever. She has experienced abdominal pain multiple times over the last four days. She reports no diarrhea. She is and has another child without any complications. Vital signs showed tachycardia and a fever up to 100.7F. CT abdomen and pelvis revealed findings consistent with acute appendicitis and a right ovarian cyst measuring 3 x 1 x 3 cm involving the right ovary. The patient underwent laparoscopic appendectomy and right ovarian cystectomy. Intraoperative findings included: - Inflamed appendix adhering to the right lower abdominal wall - Right ovarian cyst - Minimal pelvic free fluid, possibly due to ruptured ovarian cyst 08/05: whitecount is 14.2 and patient has minimal drainage Plan: - follow up on mass pathology results - Continue antibiotics: doxycycline - Monitor vital signs and laboratory results - Follow up on pathology results from surgery - Monitor surgical sites for signs of infection - Consider discharge on oral antibiotics when clinically stable - Arrange follow-up for drain management in approximately two weeks Isolation Precautions: standard Plan discussed with: Other Dietary Evaluation Review Comments: Encourage and monitor PO intake to meet 75% of her needs. Advance to diet as tolerated. Cntinue MVI supplements Expected Outcomes/Goals: Improved medical condition, healed sugical wounds DEBBIE CASE MD Aug 06, 2024 19:01
[2024-08-06] MEDS ORDERED: POTASSIUM CHLORIDE 20 MEQ, LIDOCAINE 1% (LOCAL ANESTH.) 2 ML in SODIUM CHL 0.9% 100 ML IV ONE (19:15)
[2024-08-06] MEDS: METOCLOPRAMIDE HCL 5MG/ml INJ 2ml VIAL IV ONE (21:46)
[2024-08-06] MEDS: MELATONIN 5 MG TAB PO ONE (21:46)
[2024-08-06] MEDS: POTASSIUM CHL 20MEQ/100ML 100 ML IV ONE (22:06)
[2024-08-07] VITALS (7 sets, daily range): BP systolic 122–130; BP diastolic 75–88; PULSE 97–111; RESP 16–18; TEMP 98–99.4; O2SAT 95–98
[2024-08-07 07:46] LABS: Anion Gap 11 (5-15); Carbon Dioxide 24 mmol/L (20-31); Chloride 107 mmol/L (98-107); Sodium 142 mmol/L (136-145)
[2024-08-07 07:52] LABS: Glucose 76 mg/dL (74-106)
[2024-08-07 07:59] LABS: BUN/Creatinine Ratio 9.1 (10.0-20.0); Blood Urea Nitrogen < 5 mg/dL (9-23); Potassium 3.2 mmol/L (3.5-5.1)
--- NOTE | 2024-08-07 08:27 | DVHPN2 ---
Subjective Progress Notes Subjective POD#5 s/p ex lap, appendectomy, drainage of rt ovarian cyst Patient feeling better. NG removed. No N/V + flatus and BM, loose stools last night (diarrhea) Abd pain improved significantly. no more fevers Objective PHYSICAL EXAM Physical Exam: Alert, NAD Abd: Soft, NT, No longer distended. BS x 4 Ext w/out alejandro sign or edema Vital Signs and I&O Vital Signs Date Time Temp Pulse Resp B/P (MAP) Pulse Ox O2 Delivery O2 Flow Rate FiO2 08/07/24 05:00 98.9 103 18 122/75 (91) 95 98.9 08/06/24 20:00 Room Air* 0 21 Intake and Output 08/07/24 07:00 Intake Total 1950 ml Output Total 25 ml Balance 1925 ml Intake Oral 0 ml IV Total 1950 ml Gastric Drainage Total 25 ml # Voids 4 # Bowel Movements 3 Lab results Laboratory Tests Test 07/29/24 10:59 07/29/24 12:42 07/30/24 05:10 07/30/24 06:09 Range/Units White Blood Count 7.9 7.3 4.4-10.8 10^3/uL Red Blood Count 3.64 L 3.13 L 4.0-5.20 10^6/uL Hemoglobin 9.6 L 8.1 #L 12.2-16.2 g/dL Hematocrit 29.1 L 25.1 #L 36.0-46.0 % Mean Corpuscular Volume 79.9 L 80.3 80.0-100.0 fL Mean Corpuscular Hemoglobin 26.5 L 25.8 L 28.0-32.0 pg Mean Corpuscular Hemoglobin Concent 33.1 32.2 32.0-36.0 g/dL Red Cell Distribution Width 17.9 H 18.0 H 11.8-14.3 % Platelet Count 846 *H 679 H 140-450 10^3/uL Mean Platelet Volume 6.3 L 6.1 L 6.9-10.8 fL Neutrophils (%) (Auto) 82.7 H 77.2 37.0-80.0 % Lymphocytes (%) (Auto) 10.8 13.3 10.0-50.0 % Monocytes (%) (Auto) 5.5 8.2 0.0-12.0 % Eosinophils (%) (Auto) 0.7 1.1 0.0-7.0 % Basophils (%) (Auto) 0.3 0.2 0.0-2.0 % Neutrophils # (Auto) 6.6 5.6 1.6-8.6 10 ^3/uL Lymphocytes # (Auto) 0.9 1.0 0.4-5.4 10 ^3/uL Monocytes # (Auto) 0.4 0.6 0-1.3 10 ^3/uL Eosinophils # (Auto) 0.1 0.1 0-0.8 10 ^3/uL Basophils # (Auto) 0 0 0-0.2 10 ^3/uL Nucleated Red Blood Cells 0.0 0.1 % Platelet Estimate Markedly increased Anisocytosis (manual) Slight Microcytosis Slight Sodium Level 139 140 136-145 mmol/L Potassium Level 3.7 3.5 3.5-5.1 mmol/L Chloride Level 103 107 98-107 mmol/L Carbon Dioxide Level 26 23 20-31 mmol/L Anion Gap 10 10 5-15 Blood Urea Nitrogen 10 8 L 9-23 mg/dL Creatinine 0.75 0.77 0.550-1.02 mg/dL Glomerular Filtration Rate Calc 109 106 >90 mL/min BUN/Creatinine Ratio 13.3 10.4 10.0-20.0 Serum Glucose 87 81 74-106 mg/dL Calcium Level 10.3 9.2 8.7-10.4 mg/dL Total Bilirubin 0.6 0.4 0.2-1.0 mg/dL Aspartate Amino Transferase (AST) 17 13 13-40 U/L Alanine Aminotransferase (ALT) 21 14 7-40 U/L Alkaline Phosphatase 121 H 103 46-116 U/L Troponin I High Sensitivity < 3 L < 3 L </=34 ng/L Total Protein 7.7 6.7 5.7-8.2 g/dL Albumin 4.9 H 4.3 3.2-4.8 g/dL Lipase 28 12-53 U/L Test 07/31/24 15:07 07/31/24 18:00 08/01/24 06:02 08/02/24 05:25 Range/Units Erythrocyte Sedimentation Rate 108 H 0-20 mm/hr Iron Level 17 L 50-170 ug/dL Total Iron Binding Capacity 206 L 250-425 ug/dL Percent Iron Saturation 8.3 L 15-50 % C-Reactive Protein High Sensitivity 8.14 H <1.0 mg/dL Chlamydia trachomatis (STELLA) Negative Negative Neisseria gonorrhoeae (STELLA) Negative Negative White Blood Count 7.1 4.4-10.8 10^3/uL Red Blood Count 3.22 L 4.0-5.20 10^6/uL Hemoglobin 8.2 L 12.2-16.2 g/dL Hematocrit 25.2 L 36.0-46.0 % Mean Corpuscular Volume 78.2 L 80.0-100.0 fL Mean Corpuscular Hemoglobin 25.6 L 28.0-32.0 pg Mean Corpuscular Hemoglobin Concent 32.7 32.0-36.0 g/dL Red Cell Distribution Width 17.8 H 11.8-14.3 % Platelet Count 631 H 140-450 10^3/uL Mean Platelet Volume 6.1 L 6.9-10.8 fL Neutrophils (%) (Auto) 79.3 37.0-80.0 % Lymphocytes (%) (Auto) 12.2 10.0-50.0 % Monocytes (%) (Auto) 7.3 0.0-12.0 % Eosinophils (%) (Auto) 1.0 0.0-7.0 % Basophils (%) (Auto) 0.2 0.0-2.0 % Neutrophils # (Auto) 5.7 1.6-8.6 10 ^3/uL Lymphocytes # (Auto) 0.9 0.4-5.4 10 ^3/uL Monocytes # (Auto) 0.5 0-1.3 10 ^3/uL Eosinophils # (Auto) 0.1 0-0.8 10 ^3/uL Basophils # (Auto) 0 0-0.2 10 ^3/uL Nucleated Red Blood Cells 0.0 % Prothrombin Time 11.4 9.3-11.8 sec Prothrombin Time INR 1.08 0.9-1.15 Activated Partial Thromboplast Time 34.2 24.5-34.5 SEC Beta HCG, Quantitative 0.5 L 1.5-4.2 mIU/mL Test 08/02/24 05:30 08/03/24 05:32 08/03/24 14:30 08/03/24 16:32 Range/Units Urine Color Light-yellow Yellow Urine Clarity Clear Clear Urine pH 6.0 5.0-9.0 Urine Specific [place] 1.013 1.001-1.035 Urine Protein Negative Negative Urine Ketones 1+ H Negative Urine Blood Negative Negative /uL Urine Nitrite Negative Negative Urine Bilirubin Negative Negative Urine Urobilinogen Normal Negative mg/dL Urine Leukocyte Esterase Trace Negative /uL Urine RBC 3 0 - 4 /hpf Urine Microscopic WBC 6 H 0-5 /HPF Urine Squamous Epithelial Cells Few <5 /hpf Urine Bacteria Few H None Seen /hpf Urine Mucus Few None Seen Urine Glucose Normal Normal mg/dL Urine Test Negative Negative White Blood Count 11.0 #H 4.4-10.8 10^3/uL Red Blood Count 3.45 L 4.0-5.20 10^6/uL Hemoglobin 8.7 L 12.2-16.2 g/dL Hematocrit 27.2 L 36.0-46.0 % Mean Corpuscular Volume 79.0 L 80.0-100.0 fL Mean Corpuscular Hemoglobin 25.3 L 28.0-32.0 pg Mean Corpuscular Hemoglobin Concent 32.0 32.0-36.0 g/dL Red Cell Distribution Width 17.2 H 11.8-14.3 % Platelet Count 645 H 140-450 10^3/uL Mean Platelet Volume 6.2 L 6.9-10.8 fL Neutrophils (%) (Auto) 90.1 H 37.0-80.0 % Lymphocytes (%) (Auto) 4.9 L 10.0-50.0 % Monocytes (%) (Auto) 4.9 0.0-12.0 % Eosinophils (%) (Auto) 0.0 0.0-7.0 % Basophils (%) (Auto) 0.1 0.0-2.0 % Neutrophils # (Auto) 9.9 H 1.6-8.6 10 ^3/uL Lymphocytes # (Auto) 0.5 0.4-5.4 10 ^3/uL Monocytes # (Auto) 0.5 0-1.3 10 ^3/uL Eosinophils # (Auto) 0 0-0.8 10 ^3/uL Basophils # (Auto) 0 0-0.2 10 ^3/uL Nucleated Red Blood Cells 0.0 % Sodium Level 138 136-145 mmol/L Potassium Level 3.9 3.5-5.1 mmol/L Chloride Level 104 98-107 mmol/L Carbon Dioxide Level 26 20-31 mmol/L Anion Gap 8 5-15 Blood Urea Nitrogen < 5 L 9-23 mg/dL Creatinine 0.68 0.550-1.02 mg/dL Glomerular Filtration Rate Calc 119 >90 mL/min BUN/Creatinine Ratio 7.4 L 10.0-20.0 Serum Glucose 130 H 74-106 mg/dL Hemoglobin A1c < 3.8 <5.7 % A1C Calcium Level 9.4 8.7-10.4 mg/dL Magnesium Level 1.5 L 1.6-2.6 mg/dL Total Bilirubin 0.3 0.2-1.0 mg/dL Aspartate Amino Transferase (AST) 9 L 13-40 U/L Alanine Aminotransferase (ALT) 9 7-40 U/L Alkaline Phosphatase 87 46-116 U/L Troponin I High Sensitivity < 3 L < 3 L < 3 L </=34 ng/L Total Protein 6.2 5.7-8.2 g/dL Albumin 3.9 3.2-4.8 g/dL Triglycerides Level 71 < 150 mg/dL Cholesterol Level 122 < 200 mg/dL LDL Cholesterol 78 < 100 mg/dL HDL Cholesterol 28 L 40-59 mg/dL Thyroid Stimulating Hormone (TSH) 0.71 0.55-4.78 uIU/mL D-Dimer, Quantitative 8.06 H 0.0-0.49 mg/L FEU Test 08/04/24 05:16 08/04/24 17:48 08/05/24 13:57 08/05/24 14:39 Range/Units White Blood Count 16.1 #H 14.2 H 4.4-10.8 10^3/uL Red Blood Count 3.48 L 3.52 L 4.0-5.20 10^6/uL Hemoglobin 8.6 L 8.7 L 12.2-16.2 g/dL Hematocrit 27.2 L 27.5 L 36.0-46.0 % Mean Corpuscular Volume 78.1 L 78.0 L 80.0-100.0 fL Mean Corpuscular Hemoglobin 24.7 L 24.7 L 28.0-32.0 pg Mean Corpuscular Hemoglobin Concent 31.6 L 31.6 L 32.0-36.0 g/dL Red Cell Distribution Width 17.4 H 18.0 H 11.8-14.3 % Platelet Count 645 H 681 H 140-450 10^3/uL Mean Platelet Volume 6.1 L 6.4 L 6.9-10.8 fL Neutrophils (%) (Auto) 91.7 H 90.5 H 37.0-80.0 % Lymphocytes (%) (Auto) 3.1 L 4.1 L 10.0-50.0 % Monocytes (%) (Auto) 5.2 5.1 0.0-12.0 % Eosinophils (%) (Auto) 0.0 0.2 0.0-7.0 % Basophils (%) (Auto) 0.0 0.1 0.0-2.0 % Neutrophils # (Auto) 14.7 H 12.8 H 1.6-8.6 10 ^3/uL Lymphocytes # (Auto) 0.5 0.6 0.4-5.4 10 ^3/uL Monocytes # (Auto) 0.8 0.7 0-1.3 10 ^3/uL Eosinophils # (Auto) 0 0 0-0.8 10 ^3/uL Basophils # (Auto) 0 0 0-0.2 10 ^3/uL Nucleated Red Blood Cells 0.0 0.0 % Sodium Level 137 138 136-145 mmol/L Potassium Level 3.5 3.3 L 3.5-5.1 mmol/L Chloride Level 101 100 98-107 mmol/L Carbon Dioxide Level 27 29 20-31 mmol/L Anion Gap 9 9 5-15 Blood Urea Nitrogen < 5 L < 5 L 9-23 mg/dL Creatinine 0.70 0.68 0.550-1.02 mg/dL Glomerular Filtration Rate Calc 119 119 >90 mL/min BUN/Creatinine Ratio 7.1 L 7.4 L 10.0-20.0 Serum Glucose 135 H 123 H 74-106 mg/dL Calcium Level 9.2 9.4 8.7-10.4 mg/dL Total Bilirubin 0.4 0.3 0.2-1.0 mg/dL Aspartate Amino Transferase (AST) 10 L 13 13-40 U/L Alanine Aminotransferase (ALT) < 9 9 7-40 U/L Alkaline Phosphatase 108 132 H 46-116 U/L Total Protein 6.2 6.7 5.7-8.2 g/dL Albumin 3.9 4.0 3.2-4.8 g/dL HIV (1&2) Antibody Negative Negative Magnesium Level 1.8 1.6-2.6 mg/dL Chlamydia trachomatis (STELLA) Pending Neisseria gonorrhoeae (STELLA) Pending Test 08/06/24 07:15 08/07/24 06:04 Range/Units White Blood Count 10.0 # 4.4-10.8 10^3/uL Red Blood Count 3.09 L 4.0-5.20 10^6/uL Hemoglobin 7.7 L 12.2-16.2 g/dL Hematocrit 24.1 #L 36.0-46.0 % Mean Corpuscular Volume 77.9 L 80.0-100.0 fL Mean Corpuscular Hemoglobin 25.0 L 28.0-32.0 pg Mean Corpuscular Hemoglobin Concent 32.2 32.0-36.0 g/dL Red Cell Distribution Width 17.9 H 11.8-14.3 % Platelet Count 633 H 140-450 10^3/uL Mean Platelet Volume 6.4 L 6.9-10.8 fL Neutrophils (%) (Auto) 84.3 H 37.0-80.0 % Lymphocytes (%) (Auto) 7.8 L 10.0-50.0 % Monocytes (%) (Auto) 7.2 0.0-12.0 % Eosinophils (%) (Auto) 0.7 0.0-7.0 % Basophils (%) (Auto) 0.0 0.0-2.0 % Neutrophils # (Auto) 8.4 1.6-8.6 10 ^3/uL Lymphocytes # (Auto) 0.8 0.4-5.4 10 ^3/uL Monocytes # (Auto) 0.7 0-1.3 10 ^3/uL Eosinophils # (Auto) 0.1 0-0.8 10 ^3/uL Basophils # (Auto) 0 0-0.2 10 ^3/uL Nucleated Red Blood Cells 0.0 % Sodium Level 140 142 136-145 mmol/L Potassium Level 3.0 L 3.2 L 3.5-5.1 mmol/L Chloride Level 102 107 98-107 mmol/L Carbon Dioxide Level 28 24 20-31 mmol/L Anion Gap 10 11 5-15 Blood Urea Nitrogen < 5 L < 5 L 9-23 mg/dL Creatinine 0.63 0.55 0.550-1.02 mg/dL Glomerular Filtration Rate Calc 122 126 >90 mL/min BUN/Creatinine Ratio 7.9 L 9.1 L 10.0-20.0 Serum Glucose 111 H 76 74-106 mg/dL Calcium Level 8.9 9.0 8.7-10.4 mg/dL Total Bilirubin 0.2 0.2-1.0 mg/dL Aspartate Amino Transferase (AST) 20 13-40 U/L Alanine Aminotransferase (ALT) 13 7-40 U/L Alkaline Phosphatase 115 46-116 U/L Total Protein 6.0 5.7-8.2 g/dL Albumin 3.6 3.2-4.8 g/dL Rapid Plasma Reagin Pending Assessment and Plan ASSESSMENT AND PLAN Assessment and Plan POD#5 improving significantly post op ileus resolving Hypokalemia Diarrhea Plan; Continue supportive care Appreciate ID consult, continue PO Doxycycline as outpatient per ID recommendation Advance diet to full liquids now, and then to regular as tolerated Limit narcotic use Reglan 10mg PO q6h pro-motility use D/C planning, keep drain in place for up to 1-2 weeks post op. My orders: Orders - VALE NGO DO Mri Abd & Plevis W/Wo Cont (07/30/24 07:22) Obtain Consent For Anesthesia (08/01/24 12:40) Obtain Consent For: (08/01/24 12:40) Obtain Consent For Anesthesia (08/01/24 12:40) Docusate Sodium Capsule (Colace Capsule) (08/03/24 07:30) Ibuprofen Tablet (Motrin Tablet) (08/03/24 07:30) Discontinue Pike Catheter (08/03/24 07:26) Pt Request For Service (08/03/24 07:26) Ambulate X 4 Daily On Pod #1 (08/03/24 07:26) * Infectious [place]- Dr. Santo (08/04/24 11:13) Enoxaparin Sodium (Lovenox) (08/04/24 11:30) Chest Two Views Routine (08/05/24 08:33) Kub Abdomen Single View (08/05/24 08:34) Plan discussed with: Patient Visit Coding OBGYN Date of Service: Aug 07, 2024 Billing Provider: VALE NGO DO PIPE JEEPER Common Visit Codes: CONSULTATION ONLY PIPE JEEPER Consultation Codes: [id number] INPATIENT CONSULT (HIGH) VALE NGO DO Aug 07, 2024 08:27
[2024-08-07] MEDS: METOCLOPRAMIDE HCL 10 MG TAB PO SCH (08:30)
[2024-08-07] MEDS ORDERED: IBUPROFEN 600 MG TAB PO PRN (08:30)
--- NOTE | 2024-08-07 12:14 | DVHPN2 ---
Reviewed: Care Plan, H&P, Labs, Medications, Previous Orders, Radiology Changes from previous H/P or p: No Changes Cardiovascular: Chest Pain Gastrointestinal: Nausea, Vomiting, Abdominal Pain Objective Vitals Vital Signs Date Time Temp Pulse Resp B/P (MAP) Pulse Ox O2 Delivery O2 Flow Rate FiO2 08/07/24 09:00 98.0 97 18 123/88 (100) 98 98.0 08/07/24 08:00 Room Air* 0 21 Intake/Output Intake and Output 08/07/24 07:00 Intake Total 1950 ml Output Total 25 ml Balance 1925 ml Intake Oral 0 ml IV Total 1950 ml Gastric Drainage Total 25 ml # Voids 4 # Bowel Movements 3 Medications Current Medications Medications Dose Ordered Sig/Robyn Route Start Time Stop Time Status Last Admin Dose Admin Acetaminophen/ Hydrocodone Bitart 1 tab Q4HPRN PRN PO 07/30/24 11:45 Cancel Sucralfate 1 gm BID@0600,2200 PO 07/30/24 22:00 08/05/24 06:00 1 GM Polyethylene Glycol 17 gm DAILY PO 08/01/24 10:00 08/04/24 09:58 17 GM Metronidazole 100 ml @ 100 mls/hr Q8HR IV 08/02/24 14:00 08/07/24 05:52 100 MLS/HR Ondansetron HCl 4 mg Q4HPRN PRN IV 08/02/24 10:30 08/06/24 17:37 4 MG Docusate Sodium 100 mg BID PRN PO 08/03/24 07:30 08/06/24 18:31 100 MG Ibuprofen 600 mg Q8HP PRN PO 08/03/24 07:30 Hold Pantoprazole Sodium 40 mg BID IV 08/03/24 22:00 08/07/24 09:12 40 MG Enoxaparin Sodium 30 mg DAILY SC 08/04/24 11:30 08/07/24 09:12 30 MG Ciprofloxacin 200 ml @ 200 mls/hr Q12HR IV 08/04/24 22:00 UNV Ceftriaxone Sodium/Dextrose 50 ml @ 50 mls/hr DAILY@2000 IV 08/04/24 20:00 08/06/24 20:49 50 MLS/HR Doxycycline Hyclate 100 ml @ 50 mls/hr Q12H IV 08/04/24 18:00 08/07/24 06:59 50 MLS/HR Ketorolac Tromethamine 30 mg Q6HPRN PRN IV 08/05/24 09:15 08/07/24 05:52 30 MG Metoclopramide HCl 10 mg Q8HR PO 08/07/24 08:30 Ibuprofen 600 mg Q6HP PRN PO 08/07/24 08:30 Hold Acetaminophen/ Codeine Phosphate 1 tab Q4HP PRN PO 08/07/24 08:30 Laboratory Results Laboratory Tests 08/06/24 07:15 08/07/24 06:04 Chemistry Test 08/07/24 06:04 Calcium Level 9.0 mg/dL (8.7-10.4) Urinalysis Test 08/02/24 05:30 Urine Color Light-yellow (Yellow) Urine Clarity Clear (Clear) Urine pH 6.0 (5.0-9.0) Urine Specific [place] 1.013 (1.001-1.035) Urine Protein Negative (Negative) Urine Ketones 1+ (Negative) H Urine Blood Negative /uL (Negative) Urine Nitrite Negative (Negative) Urine Bilirubin Negative (Negative) Urine Urobilinogen Normal mg/dL (Negative) Urine Leukocyte Esterase Trace /uL (Negative) Urine RBC 3 /hpf (0 - 4) Urine Microscopic WBC 6 /HPF (0-5) H Urine Squamous Epithelial Cells Few /hpf (<5) Urine Bacteria Few /hpf (None Seen) H Urine Mucus Few (None Seen) Urine Glucose Normal mg/dL (Normal) Urine Test Negative (Negative) Microbiology Microbiology Date/Time Source Procedure Growth Status 08/04/24 10:30 Blood Blood Culture - Preliminary NO GROWTH AFTER 72 HOURS OF INCUBATION. Resulted 07/31/24 18:00 Voided Urine Urine Culture - Final Complete Labs and/or images reviewed: Labs reviewed by me, Image(s) reviewed by me Assessment/Plan Assessment/Plan Acute appendicitis status post diagnostic laparoscopy, midline laparotomy, appendectomy, drainage of right ovarian cyst lysis of adhesions and placement of GWYN drain on 08/02/[address] Duran along with surgeon Dr. Mendoza, patient on Rocephin doxycycline and Flagyl Recent Right ovarian follicular cyst 3 cm status post drainage by adult probation officer Noncardiac chest pain echocardiogram 60% ejection fraction cardiology consult appreciated History of. preeclampsia Elevated D-dimer: PE ruled out GERD: Pantoprazole and Carafate Start on liquid diet and advance diet as tolerated as per the recommendation of the surgeon Physical therapy ordered KUB x-ray 08-06-24 negative for any acute pathology Time spent 45 minutes Feeling better, ambulating in the bru[address] way , we will advance diet as tolerated and discharge tomorrow Wednesday Plan discussed with: Patient Date of Service: Aug 07, 2024 Billing Provider: DENNIS COLIN MD Common Visit Codes: [id number] INP/OBS CARE(HIGH) DENNIS COLIN MD Aug 07, 2024 12:13
--- NOTE | 2024-08-07 16:02 | DVHPN2 ---
Progress Note Date Seen: Aug 07, 2024 Resident Creating Document: NASEEM MEYER RESIDENT Medical Necessity Reason Pt with a Central, PICC or Fol: No Subjective Review of Systems Patient is seen and examined at bedside. Patient is tolerating diet. No nausea, vomiting. Patient is ambulating as well. Objective vital signs Vital Sign Date Time Temp Pulse Resp B/P (MAP) Pulse Ox O2 Delivery O2 Flow Rate FiO2 08/07/24 13:00 98.1 102 16 125/86 (99) 97 98.1 08/07/24 08:00 Room Air* 0 21 Total Intake and Output 08/06/24 08/06/24 08/07/24 15:00 23:00 07:00 Intake Total 740 ml 1210 ml 0 ml Output Total 25 ml Balance 740 ml 1185 ml 0 ml medications Current Medications Medications Dose Ordered Sig/Robyn Route Start Time Stop Time Status Last Admin Dose Admin Acetaminophen/ Hydrocodone Bitart 1 tab Q4HPRN PRN PO 07/30/24 11:45 Cancel Sucralfate 1 gm BID@0600,2200 PO 07/30/24 22:00 08/05/24 06:00 1 GM Polyethylene Glycol 17 gm DAILY PO 08/01/24 10:00 08/04/24 09:58 17 GM Metronidazole 100 ml @ 100 mls/hr Q8HR IV 08/02/24 14:00 08/07/24 14:32 100 MLS/HR Ondansetron HCl 4 mg Q4HPRN PRN IV 08/02/24 10:30 08/06/24 17:37 4 MG Docusate Sodium 100 mg BID PRN PO 08/03/24 07:30 08/06/24 18:31 100 MG Ibuprofen 600 mg Q8HP PRN PO 08/03/24 07:30 Hold Pantoprazole Sodium 40 mg BID IV 08/03/24 22:00 08/07/24 09:12 40 MG Enoxaparin Sodium 30 mg DAILY SC 08/04/24 11:30 08/07/24 09:12 30 MG Ciprofloxacin 200 ml @ 200 mls/hr Q12HR IV 08/04/24 22:00 UNV Ceftriaxone Sodium/Dextrose 50 ml @ 50 mls/hr DAILY@2000 IV 08/04/24 20:00 08/06/24 20:49 50 MLS/HR Doxycycline Hyclate 100 ml @ 50 mls/hr Q12H IV 08/04/24 18:00 08/07/24 06:59 50 MLS/HR Ketorolac Tromethamine 30 mg Q6HPRN PRN IV 08/05/24 09:15 08/07/24 05:52 30 MG Metoclopramide HCl 10 mg Q8HR PO 08/07/24 08:30 08/07/24 14:33 10 MG Ibuprofen 600 mg Q6HP PRN PO 08/07/24 08:30 Hold Acetaminophen/ Codeine Phosphate 1 tab Q4HP PRN PO 08/07/24 08:30 Iron Sucrose 110 ml @ 110 mls/hr DAILY@1200 IV 08/08/24 12:00 08/12/24 12:59 Examination: GENERAL:Normal, HEENT:Normal, NECK:Normal, LUNGS:Normal, CVS:Normal, ABDOMEN:Normal, MSK:Normal, SKIN:Normal, NEURO:Normal laboratory and microbiology Laboratory Tests 08/07/24 06:04 08/06/24 07:15 Test 08/07/24 06:04 Range/Units Serum Glucose 76 74-106 mg/dL Microbiology Date/Time Source Procedure Growth Status 08/04/24 10:30 Blood Blood Culture - Preliminary NO GROWTH AFTER 72 HOURS OF INCUBATION. Resulted 07/31/24 18:00 Voided Urine Urine Culture - Final Complete Problem List/Assessment/Plan Problem List/Assessment/Plan Abdominal pain due to acute appendicitis Acute gastritis Right ovarian cyst Abdominal pain Microcytic hypochromic anemia Plan/recommendation Dr Arenas -Advanced diet as per surgical team. Tolerating clear liquid diet. If nausea or vomiting keep her NPO again. -S/P Diagnostic laparoscopy & Midline laparotomy with appendectomy and Drainage of right ovarian cyst. Clear liquid diet. Advance as tolerated. continue current management -continue Protonix 40 mg IV daily -IV antibiotic as per primary care, antibiotic has been changed given patient's continued temperature, elevated WBC count. -advanced diet as per toleration, maintained hydration. -surgery and OBGYN on board. -we will continue following this patient. Plan discussed with: Patient, Other (RN) Dietary Evaluation Review Comments: Encourage and monitor PO intake to meet 75% of her needs. Advance to diet as tolerated. Cntinue MVI supplements Expected Outcomes/Goals: Improved medical condition, healed sugical wounds NASEEM MEYER RESIDENT Aug 07, 2024 16:02
[2024-08-07] MEDS: ACETAMINOPHEN/CODEINE#3 (300/30mg) TAB PO PRN (17:48)
[2024-08-07 21:06] LABS: Chlamydia Trachomatis, NAA Negative (Negative); Neisseria gonorrhoeae, NAA Negative (Negative)
--- NOTE | 2024-08-07 21:47 | DVHPN2 ---
Consult Progress Note Date Seen: Aug 07, 2024 Objective vital signs Vital Sign Date Time Temp Pulse Resp B/P (MAP) Pulse Ox O2 Delivery O2 Flow Rate FiO2 08/07/24 17:00 98.4 108 18 129/78 (95) 98 98.4 08/07/24 08:00 Room Air* 0 21 Total Intake and Output 08/06/24 08/06/24 08/07/24 15:00 23:00 07:00 Intake Total 740 ml 1210 ml 0 ml Output Total 25 ml Balance 740 ml 1185 ml 0 ml medications Current Medications Medications Dose Ordered Sig/Robyn Route Start Time Stop Time Status Last Admin Dose Admin Acetaminophen/ Hydrocodone Bitart 1 tab Q4HPRN PRN PO 07/30/24 11:45 Cancel Sucralfate 1 gm BID@0600,2200 PO 07/30/24 22:00 08/05/24 06:00 1 GM Polyethylene Glycol 17 gm DAILY PO 08/01/24 10:00 08/04/24 09:58 17 GM Metronidazole 100 ml @ 100 mls/hr Q8HR IV 08/02/24 14:00 08/07/24 14:32 100 MLS/HR Ondansetron HCl 4 mg Q4HPRN PRN IV 08/02/24 10:30 08/06/24 17:37 4 MG Docusate Sodium 100 mg BID PRN PO 08/03/24 07:30 08/06/24 18:31 100 MG Ibuprofen 600 mg Q8HP PRN PO 08/03/24 07:30 Hold Pantoprazole Sodium 40 mg BID IV 08/03/24 22:00 08/07/24 21:04 40 MG Enoxaparin Sodium 30 mg DAILY SC 08/04/24 11:30 08/07/24 09:12 30 MG Ciprofloxacin 200 ml @ 200 mls/hr Q12HR IV 08/04/24 22:00 UNV Ceftriaxone Sodium/Dextrose 50 ml @ 50 mls/hr DAILY@2000 IV 08/04/24 20:00 08/07/24 21:09 50 MLS/HR Doxycycline Hyclate 100 ml @ 50 mls/hr Q12H IV 08/04/24 18:00 08/07/24 17:47 50 MLS/HR Ketorolac Tromethamine 30 mg Q6HPRN PRN IV 08/05/24 09:15 08/09/24 09:14 08/07/24 05:52 30 MG Metoclopramide HCl 10 mg Q8HR PO 08/07/24 08:30 08/07/24 21:03 10 MG Ibuprofen 600 mg Q6HP PRN PO 08/07/24 08:30 Hold Acetaminophen/ Codeine Phosphate 1 tab Q4HP PRN PO 08/07/24 08:30 08/07/24 17:48 1 TAB Iron Sucrose 110 ml @ 110 mls/hr DAILY@1200 IV 08/08/24 12:00 08/12/24 12:59 Physical Exam: General: Appears ill; tachycardic. Neck: Supple. No masses. HEENT: PERRL. Normal lids and conjunctiva. Moist mucous membranes. Oropharynx without lesions, exudates, or excessive erythema. Normal appearance of the external aspects of the nose and ears. Heart: Regular rhythm, tachycardic. No murmur. No lower extremity edema. Lungs: Normal respiratory effort. Clear to auscultation bilaterally. No wheezes. No crackles. Abdomen: Soft. Tender in the right lower quadrant. Non-distended. No masses or abdominal hernia. Msk: No digital cyanosis. Normal strength and tone in all 4 limbs. Skin: Warm and dry, no rashes. Neuro: Alert. No facial droop or slurred speech. Extra-ocular movements intact. Sensation intact to soft touch in all 4 limbs. Psych: Appropriate mood. Full affect. Oriented to person, place, time, and situation laboratory and microbiology Laboratory Tests 08/07/24 06:04 08/06/24 07:15 Test 08/07/24 06:04 Range/Units Serum Glucose 76 74-106 mg/dL Problem List/Assessment/Plan Problems(with codes): (1) Severe sepsis (2) Pelvic mass (3) Pelvic inflammatory disease (4) Laparoscopic surgical procedure converted to open procedure (5) Abdominal distention (6) Right ovarian cyst (7) Gastritis (8) Thrombocytosis (9) Abdominal pain (10) Anemia Problem List/Assessment/Plan ASSESSMENT AND PLAN: ID Problem List: - Acute appendicitis - Right ovarian cyst - Status post section on 07/02/2024 - Possible pelvic inflammatory disease (PID) - Fever - Abdominal pain Assessment This is a female patient with a past medical history of section on 07/02/2024, who presents with abdominal pain and fever. She has experienced abdominal pain multiple times over the last four days. She reports no diarrhea. She is and has another child without any complications. Vital signs showed tachycardia and a fever up to 100.7F. CT abdomen and pelvis revealed findings consistent with acute appendicitis and a right ovarian cyst measuring 3 x 1 x 3 cm involving the right ovary. The patient underwent laparoscopic appendectomy and right ovarian cystectomy. Intraoperative findings included: - Inflamed appendix adhering to the right lower abdominal wall - Right ovarian cyst - Minimal pelvic free fluid, possibly due to ruptured ovarian cyst 08/05: whitecount is 14.2 and patient has minimal drainage 08/06: whitecount is 10 , still tachycardic Plan: - patient can continue IV antibiotics and can also trasition to oral doxycycline 100 mg 2x a day and Flagyl 500 mg 3x a day when patient is ready for discharge to complete a total of 14 days of antibiotics - recommend patient is monitored for at least 24 hours on oral antibiotics prior to discharge to ensure patient is tolerating them well - follow up on mass pathology results - Continue antibiotics: doxycycline - Monitor vital signs and laboratory results - Follow up on pathology results from surgery - Monitor surgical sites for signs of infection - Consider discharge on oral antibiotics when clinically stable - Arrange follow-up for drain management in approximately two weeks Isolation Precautions: standard Plan discussed with: Other Dietary Evaluation Review Comments: Encourage and monitor PO intake to meet 75% of her needs. Advance to diet as tolerated. Cntinue MVI supplements Expected Outcomes/Goals: Improved medical condition, healed sugical wounds DEBBIE CASE MD Aug 07, 2024 21:47
[2024-08-08 01:00] VITALS: BP 132/80; PULSE 112; RESP 18; TEMP 99.1; O2SAT 98
[2024-08-08 05:00] VITALS: BP 120/74; PULSE 110; RESP 18; TEMP 99.1; O2SAT 97
--- NOTE | 2024-08-08 07:03 | DVHPN2 ---
Subjective Progress Notes Subjective Pain better controlled. No fever/chills Objective PHYSICAL EXAM Physical Exam: Alert, NAD Abd Soft, NT, incisions C/D/I/ Non distended ext soft, neg alejandro sign Vital Signs and I&O Vital Signs Date Time Temp Pulse Resp B/P (MAP) Pulse Ox O2 Delivery O2 Flow Rate FiO2 08/08/24 05:00 99.1 110 18 120/74 (89) 97 99.1 08/07/24 20:00 Room Air* 0 21 Intake and Output 08/08/24 07:00 Intake Total 1450 ml Balance 1450 ml Intake Oral 1200 ml IV Total 250 ml # Voids 5 # Bowel Movements 3 Lab results Laboratory Tests Test 07/29/24 10:59 07/29/24 12:42 07/30/24 05:10 07/30/24 06:09 Range/Units White Blood Count 7.9 7.3 4.4-10.8 10^3/uL Red Blood Count 3.64 L 3.13 L 4.0-5.20 10^6/uL Hemoglobin 9.6 L 8.1 #L 12.2-16.2 g/dL Hematocrit 29.1 L 25.1 #L 36.0-46.0 % Mean Corpuscular Volume 79.9 L 80.3 80.0-100.0 fL Mean Corpuscular Hemoglobin 26.5 L 25.8 L 28.0-32.0 pg Mean Corpuscular Hemoglobin Concent 33.1 32.2 32.0-36.0 g/dL Red Cell Distribution Width 17.9 H 18.0 H 11.8-14.3 % Platelet Count 846 *H 679 H 140-450 10^3/uL Mean Platelet Volume 6.3 L 6.1 L 6.9-10.8 fL Neutrophils (%) (Auto) 82.7 H 77.2 37.0-80.0 % Lymphocytes (%) (Auto) 10.8 13.3 10.0-50.0 % Monocytes (%) (Auto) 5.5 8.2 0.0-12.0 % Eosinophils (%) (Auto) 0.7 1.1 0.0-7.0 % Basophils (%) (Auto) 0.3 0.2 0.0-2.0 % Neutrophils # (Auto) 6.6 5.6 1.6-8.6 10 ^3/uL Lymphocytes # (Auto) 0.9 1.0 0.4-5.4 10 ^3/uL Monocytes # (Auto) 0.4 0.6 0-1.3 10 ^3/uL Eosinophils # (Auto) 0.1 0.1 0-0.8 10 ^3/uL Basophils # (Auto) 0 0 0-0.2 10 ^3/uL Nucleated Red Blood Cells 0.0 0.1 % Platelet Estimate Markedly increased Anisocytosis (manual) Slight Microcytosis Slight Sodium Level 139 140 136-145 mmol/L Potassium Level 3.7 3.5 3.5-5.1 mmol/L Chloride Level 103 107 98-107 mmol/L Carbon Dioxide Level 26 23 20-31 mmol/L Anion Gap 10 10 5-15 Blood Urea Nitrogen 10 8 L 9-23 mg/dL Creatinine 0.75 0.77 0.550-1.02 mg/dL Glomerular Filtration Rate Calc 109 106 >90 mL/min BUN/Creatinine Ratio 13.3 10.4 10.0-20.0 Serum Glucose 87 81 74-106 mg/dL Calcium Level 10.3 9.2 8.7-10.4 mg/dL Total Bilirubin 0.6 0.4 0.2-1.0 mg/dL Aspartate Amino Transferase (AST) 17 13 13-40 U/L Alanine Aminotransferase (ALT) 21 14 7-40 U/L Alkaline Phosphatase 121 H 103 46-116 U/L Troponin I High Sensitivity < 3 L < 3 L </=34 ng/L Total Protein 7.7 6.7 5.7-8.2 g/dL Albumin 4.9 H 4.3 3.2-4.8 g/dL Lipase 28 12-53 U/L Test 07/31/24 15:07 07/31/24 18:00 08/01/24 06:02 08/02/24 05:25 Range/Units Erythrocyte Sedimentation Rate 108 H 0-20 mm/hr Iron Level 17 L 50-170 ug/dL Total Iron Binding Capacity 206 L 250-425 ug/dL Percent Iron Saturation 8.3 L 15-50 % C-Reactive Protein High Sensitivity 8.14 H <1.0 mg/dL Chlamydia trachomatis (STELLA) Negative Negative Neisseria gonorrhoeae (STELLA) Negative Negative White Blood Count 7.1 4.4-10.8 10^3/uL Red Blood Count 3.22 L 4.0-5.20 10^6/uL Hemoglobin 8.2 L 12.2-16.2 g/dL Hematocrit 25.2 L 36.0-46.0 % Mean Corpuscular Volume 78.2 L 80.0-100.0 fL Mean Corpuscular Hemoglobin 25.6 L 28.0-32.0 pg Mean Corpuscular Hemoglobin Concent 32.7 32.0-36.0 g/dL Red Cell Distribution Width 17.8 H 11.8-14.3 % Platelet Count 631 H 140-450 10^3/uL Mean Platelet Volume 6.1 L 6.9-10.8 fL Neutrophils (%) (Auto) 79.3 37.0-80.0 % Lymphocytes (%) (Auto) 12.2 10.0-50.0 % Monocytes (%) (Auto) 7.3 0.0-12.0 % Eosinophils (%) (Auto) 1.0 0.0-7.0 % Basophils (%) (Auto) 0.2 0.0-2.0 % Neutrophils # (Auto) 5.7 1.6-8.6 10 ^3/uL Lymphocytes # (Auto) 0.9 0.4-5.4 10 ^3/uL Monocytes # (Auto) 0.5 0-1.3 10 ^3/uL Eosinophils # (Auto) 0.1 0-0.8 10 ^3/uL Basophils # (Auto) 0 0-0.2 10 ^3/uL Nucleated Red Blood Cells 0.0 % Prothrombin Time 11.4 9.3-11.8 sec Prothrombin Time INR 1.08 0.9-1.15 Activated Partial Thromboplast Time 34.2 24.5-34.5 SEC Beta HCG, Quantitative 0.5 L 1.5-4.2 mIU/mL Test 08/02/24 05:30 08/03/24 05:32 08/03/24 14:30 08/03/24 16:32 Range/Units Urine Color Light-yellow Yellow Urine Clarity Clear Clear Urine pH 6.0 5.0-9.0 Urine Specific [place] 1.013 1.001-1.035 Urine Protein Negative Negative Urine Ketones 1+ H Negative Urine Blood Negative Negative /uL Urine Nitrite Negative Negative Urine Bilirubin Negative Negative Urine Urobilinogen Normal Negative mg/dL Urine Leukocyte Esterase Trace Negative /uL Urine RBC 3 0 - 4 /hpf Urine Microscopic WBC 6 H 0-5 /HPF Urine Squamous Epithelial Cells Few <5 /hpf Urine Bacteria Few H None Seen /hpf Urine Mucus Few None Seen Urine Glucose Normal Normal mg/dL Urine Test Negative Negative White Blood Count 11.0 #H 4.4-10.8 10^3/uL Red Blood Count 3.45 L 4.0-5.20 10^6/uL Hemoglobin 8.7 L 12.2-16.2 g/dL Hematocrit 27.2 L 36.0-46.0 % Mean Corpuscular Volume 79.0 L 80.0-100.0 fL Mean Corpuscular Hemoglobin 25.3 L 28.0-32.0 pg Mean Corpuscular Hemoglobin Concent 32.0 32.0-36.0 g/dL Red Cell Distribution Width 17.2 H 11.8-14.3 % Platelet Count 645 H 140-450 10^3/uL Mean Platelet Volume 6.2 L 6.9-10.8 fL Neutrophils (%) (Auto) 90.1 H 37.0-80.0 % Lymphocytes (%) (Auto) 4.9 L 10.0-50.0 % Monocytes (%) (Auto) 4.9 0.0-12.0 % Eosinophils (%) (Auto) 0.0 0.0-7.0 % Basophils (%) (Auto) 0.1 0.0-2.0 % Neutrophils # (Auto) 9.9 H 1.6-8.6 10 ^3/uL Lymphocytes # (Auto) 0.5 0.4-5.4 10 ^3/uL Monocytes # (Auto) 0.5 0-1.3 10 ^3/uL Eosinophils # (Auto) 0 0-0.8 10 ^3/uL Basophils # (Auto) 0 0-0.2 10 ^3/uL Nucleated Red Blood Cells 0.0 % Sodium Level 138 136-145 mmol/L Potassium Level 3.9 3.5-5.1 mmol/L Chloride Level 104 98-107 mmol/L Carbon Dioxide Level 26 20-31 mmol/L Anion Gap 8 5-15 Blood Urea Nitrogen < 5 L 9-23 mg/dL Creatinine 0.68 0.550-1.02 mg/dL Glomerular Filtration Rate Calc 119 >90 mL/min BUN/Creatinine Ratio 7.4 L 10.0-20.0 Serum Glucose 130 H 74-106 mg/dL Hemoglobin A1c < 3.8 <5.7 % A1C Calcium Level 9.4 8.7-10.4 mg/dL Magnesium Level 1.5 L 1.6-2.6 mg/dL Total Bilirubin 0.3 0.2-1.0 mg/dL Aspartate Amino Transferase (AST) 9 L 13-40 U/L Alanine Aminotransferase (ALT) 9 7-40 U/L Alkaline Phosphatase 87 46-116 U/L Troponin I High Sensitivity < 3 L < 3 L < 3 L </=34 ng/L Total Protein 6.2 5.7-8.2 g/dL Albumin 3.9 3.2-4.8 g/dL Triglycerides Level 71 < 150 mg/dL Cholesterol Level 122 < 200 mg/dL LDL Cholesterol 78 < 100 mg/dL HDL Cholesterol 28 L 40-59 mg/dL Thyroid Stimulating Hormone (TSH) 0.71 0.55-4.78 uIU/mL D-Dimer, Quantitative 8.06 H 0.0-0.49 mg/L FEU Test 08/04/24 05:16 08/04/24 17:48 08/05/24 13:57 08/05/24 14:39 Range/Units White Blood Count 16.1 #H 14.2 H 4.4-10.8 10^3/uL Red Blood Count 3.48 L 3.52 L 4.0-5.20 10^6/uL Hemoglobin 8.6 L 8.7 L 12.2-16.2 g/dL Hematocrit 27.2 L 27.5 L 36.0-46.0 % Mean Corpuscular Volume 78.1 L 78.0 L 80.0-100.0 fL Mean Corpuscular Hemoglobin 24.7 L 24.7 L 28.0-32.0 pg Mean Corpuscular Hemoglobin Concent 31.6 L 31.6 L 32.0-36.0 g/dL Red Cell Distribution Width 17.4 H 18.0 H 11.8-14.3 % Platelet Count 645 H 681 H 140-450 10^3/uL Mean Platelet Volume 6.1 L 6.4 L 6.9-10.8 fL Neutrophils (%) (Auto) 91.7 H 90.5 H 37.0-80.0 % Lymphocytes (%) (Auto) 3.1 L 4.1 L 10.0-50.0 % Monocytes (%) (Auto) 5.2 5.1 0.0-12.0 % Eosinophils (%) (Auto) 0.0 0.2 0.0-7.0 % Basophils (%) (Auto) 0.0 0.1 0.0-2.0 % Neutrophils # (Auto) 14.7 H 12.8 H 1.6-8.6 10 ^3/uL Lymphocytes # (Auto) 0.5 0.6 0.4-5.4 10 ^3/uL Monocytes # (Auto) 0.8 0.7 0-1.3 10 ^3/uL Eosinophils # (Auto) 0 0 0-0.8 10 ^3/uL Basophils # (Auto) 0 0 0-0.2 10 ^3/uL Nucleated Red Blood Cells 0.0 0.0 % Sodium Level 137 138 136-145 mmol/L Potassium Level 3.5 3.3 L 3.5-5.1 mmol/L Chloride Level 101 100 98-107 mmol/L Carbon Dioxide Level 27 29 20-31 mmol/L Anion Gap 9 9 5-15 Blood Urea Nitrogen < 5 L < 5 L 9-23 mg/dL Creatinine 0.70 0.68 0.550-1.02 mg/dL Glomerular Filtration Rate Calc 119 119 >90 mL/min BUN/Creatinine Ratio 7.1 L 7.4 L 10.0-20.0 Serum Glucose 135 H 123 H 74-106 mg/dL Calcium Level 9.2 9.4 8.7-10.4 mg/dL Total Bilirubin 0.4 0.3 0.2-1.0 mg/dL Aspartate Amino Transferase (AST) 10 L 13 13-40 U/L Alanine Aminotransferase (ALT) < 9 9 7-40 U/L Alkaline Phosphatase 108 132 H 46-116 U/L Total Protein 6.2 6.7 5.7-8.2 g/dL Albumin 3.9 4.0 3.2-4.8 g/dL HIV (1&2) Antibody Negative Negative Magnesium Level 1.8 1.6-2.6 mg/dL Chlamydia trachomatis (STELLA) Negative Negative Neisseria gonorrhoeae (STELLA) Negative Negative Test 08/06/24 07:15 08/07/24 06:04 Range/Units White Blood Count 10.0 # 4.4-10.8 10^3/uL Red Blood Count 3.09 L 4.0-5.20 10^6/uL Hemoglobin 7.7 L 12.2-16.2 g/dL Hematocrit 24.1 #L 36.0-46.0 % Mean Corpuscular Volume 77.9 L 80.0-100.0 fL Mean Corpuscular Hemoglobin 25.0 L 28.0-32.0 pg Mean Corpuscular Hemoglobin Concent 32.2 32.0-36.0 g/dL Red Cell Distribution Width 17.9 H 11.8-14.3 % Platelet Count 633 H 140-450 10^3/uL Mean Platelet Volume 6.4 L 6.9-10.8 fL Neutrophils (%) (Auto) 84.3 H 37.0-80.0 % Lymphocytes (%) (Auto) 7.8 L 10.0-50.0 % Monocytes (%) (Auto) 7.2 0.0-12.0 % Eosinophils (%) (Auto) 0.7 0.0-7.0 % Basophils (%) (Auto) 0.0 0.0-2.0 % Neutrophils # (Auto) 8.4 1.6-8.6 10 ^3/uL Lymphocytes # (Auto) 0.8 0.4-5.4 10 ^3/uL Monocytes # (Auto) 0.7 0-1.3 10 ^3/uL Eosinophils # (Auto) 0.1 0-0.8 10 ^3/uL Basophils # (Auto) 0 0-0.2 10 ^3/uL Nucleated Red Blood Cells 0.0 % Sodium Level 140 142 136-145 mmol/L Potassium Level 3.0 L 3.2 L 3.5-5.1 mmol/L Chloride Level 102 107 98-107 mmol/L Carbon Dioxide Level 28 24 20-31 mmol/L Anion Gap 10 11 5-15 Blood Urea Nitrogen < 5 L < 5 L 9-23 mg/dL Creatinine 0.63 0.55 0.550-1.02 mg/dL Glomerular Filtration Rate Calc 122 126 >90 mL/min BUN/Creatinine Ratio 7.9 L 9.1 L 10.0-20.0 Serum Glucose 111 H 76 74-106 mg/dL Calcium Level 8.9 9.0 8.7-10.4 mg/dL Total Bilirubin 0.2 0.2-1.0 mg/dL Aspartate Amino Transferase (AST) 20 13-40 U/L Alanine Aminotransferase (ALT) 13 7-40 U/L Alkaline Phosphatase 115 46-116 U/L Total Protein 6.0 5.7-8.2 g/dL Albumin 3.6 3.2-4.8 g/dL Rapid Plasma Reagin Pending Assessment and Plan ASSESSMENT AND PLAN Assessment and Plan s/p ex lap and appendectomy s/p drainage of rt ovarian cyst ileus with abdominal pain, improved Plan: D/C planning per general surgery, IM team determination Appears to be stable per ID consult, may discharge on PO Antibiotics ADVICE CLERK will sign off. F/U in [facility]VICE CLERK clinic within one week of discharge. My orders: Orders - VALE NGO DO Mri Abd & Plevis W/Wo Cont (07/30/24 07:22) Obtain Consent For Anesthesia (08/01/24 12:40) Obtain Consent For: (08/01/24 12:40) Obtain Consent For Anesthesia (08/01/24 12:40) Docusate Sodium Capsule (Colace Capsule) (08/03/24 07:30) Ibuprofen Tablet (Motrin Tablet) (08/03/24 07:30) Discontinue Pike Catheter (08/03/24 07:26) Pt Request For Service (08/03/24 07:26) Ambulate X 4 Daily On Pod #1 (08/03/24 07:26) * Infectious Tere- Dr. Santo (08/04/24 11:13) Enoxaparin Sodium (Lovenox) (08/04/24 11:30) Chest Two Views Routine (08/05/24 08:33) Kub Abdomen Single View (08/05/24 08:34) Metoclopramide Tablet (Reglan Tablet) (08/07/24 08:30) Ibuprofen Tablet (Motrin Tablet) (08/07/24 08:30) Acetaminophen/Codeine Tablet (Tylenol W/ (08/07/24 08:30) Plan discussed with: Patient Visit Coding OBGYN Date of Service: Aug 08, 2024 Billing Provider: VALE NGO DO HEALTH AND SAFETY COORDINATOR Common Visit Codes: CONSULTATION ONLY HEALTH AND SAFETY COORDINATOR Consultation Codes: [id number] INPATIENT CONSULT (HIGH) VALE NGO DO Aug 08, 2024 07:03
[2024-08-08 07:07] LABS: RPR Non Reactive (Non Reactive)
[2024-08-08 08:00] VITALS: PULSE 103; PULSE 110; RESP 17
[2024-08-08 09:00] VITALS: BP 123/72; PULSE 110; RESP 20; TEMP 98.1; O2SAT 98
[2024-08-08] MEDS: POTASSIUM CHL 20 Meq TABLET PO SCH (09:40)
[2024-08-08] MEDS ORDERED: SUCR1TAB31 PO (09:47)
[2024-08-08] MEDS ORDERED: DOXY100C79 PO (09:47)
[2024-08-08] MEDS ORDERED: PANT40T PO (09:47)
[2024-08-08] MEDS ORDERED: METR-344 PO (09:47)
[2024-08-08] MEDS ORDERED: FERR-7 PO (09:47)
[2024-08-08] MEDS ORDERED: TRAM-626 PO (09:49)
--- NOTE | 2024-08-08 09:53 | DVHPN2 ---
Reviewed: Care Plan, H&P, Labs, Medications, Previous Orders, Radiology Changes from previous H/P or p: No Changes Cardiovascular: Chest Pain Gastrointestinal: Nausea, Vomiting, Abdominal Pain Objective Vitals Vital Signs Date Time Temp Pulse Resp B/P (MAP) Pulse Ox O2 Delivery O2 Flow Rate FiO2 08/08/24 09:00 98.1 110 20 123/72 (89) 98 98.1 08/07/24 20:00 Room Air* 0 21 Intake/Output Intake and Output 08/08/24 07:00 Intake Total 1450 ml Balance 1450 ml Intake Oral 1200 ml IV Total 250 ml # Voids 5 # Bowel Movements 3 Medications Current Medications Medications Dose Ordered Sig/Robyn Route Start Time Stop Time Status Last Admin Dose Admin Acetaminophen/ Hydrocodone Bitart 1 tab Q4HPRN PRN PO 07/30/24 11:45 Cancel Sucralfate 1 gm BID@0600,2200 PO 07/30/24 22:00 08/05/24 06:00 1 GM Polyethylene Glycol 17 gm DAILY PO 08/01/24 10:00 08/04/24 09:58 17 GM Metronidazole 100 ml @ 100 mls/hr Q8HR IV 08/02/24 14:00 08/08/24 06:29 100 MLS/HR Ondansetron HCl 4 mg Q4HPRN PRN IV 08/02/24 10:30 08/06/24 17:37 4 MG Docusate Sodium 100 mg BID PRN PO 08/03/24 07:30 08/06/24 18:31 100 MG Ibuprofen 600 mg Q8HP PRN PO 08/03/24 07:30 Hold Pantoprazole Sodium 40 mg BID IV 08/03/24 22:00 08/08/24 09:40 40 MG Enoxaparin Sodium 30 mg DAILY SC 08/04/24 11:30 08/08/24 09:40 30 MG Ciprofloxacin 200 ml @ 200 mls/hr Q12HR IV 08/04/24 22:00 UNV Ceftriaxone Sodium/Dextrose 50 ml @ 50 mls/hr DAILY@2000 IV 08/04/24 20:00 08/07/24 21:09 50 MLS/HR Doxycycline Hyclate 100 ml @ 50 mls/hr Q12H IV 08/04/24 18:00 08/08/24 06:30 50 MLS/HR Ketorolac Tromethamine 30 mg Q6HPRN PRN IV 08/05/24 09:15 08/09/24 09:14 08/07/24 05:52 30 MG Metoclopramide HCl 10 mg Q8HR PO 08/07/24 08:30 08/08/24 06:29 10 MG Ibuprofen 600 mg Q6HP PRN PO 08/07/24 08:30 Hold Acetaminophen/ Codeine Phosphate 1 tab Q4HP PRN PO 08/07/24 08:30 08/08/24 00:14 1 TAB Iron Sucrose 110 ml @ 110 mls/hr DAILY@1200 IV 08/08/24 12:00 08/12/24 12:59 Potassium Chloride 20 meq BID PO 08/08/24 10:00 08/08/24 09:40 20 MEQ Tramadol HCl 50 mg Q6HP PRN PO 08/08/24 10:00 UNV Laboratory Results Laboratory Tests 08/06/24 07:15 08/07/24 06:04 Urinalysis Test 08/02/24 05:30 Urine Color Light-yellow (Yellow) Urine Clarity Clear (Clear) Urine pH 6.0 (5.0-9.0) Urine Specific [place] 1.013 (1.001-1.035) Urine Protein Negative (Negative) Urine Ketones 1+ (Negative) H Urine Blood Negative /uL (Negative) Urine Nitrite Negative (Negative) Urine Bilirubin Negative (Negative) Urine Urobilinogen Normal mg/dL (Negative) Urine Leukocyte Esterase Trace /uL (Negative) Urine RBC 3 /hpf (0 - 4) Urine Microscopic WBC 6 /HPF (0-5) H Urine Squamous Epithelial Cells Few /hpf (<5) Urine Bacteria Few /hpf (None Seen) H Urine Mucus Few (None Seen) Urine Glucose Normal mg/dL (Normal) Urine Test Negative (Negative) Microbiology Microbiology Date/Time Source Procedure Growth Status 08/04/24 10:30 Blood Blood Culture - Preliminary NO GROWTH AFTER 72 HOURS OF INCUBATION. Resulted 07/31/24 18:00 Voided Urine Urine Culture - Final Complete Labs and/or images reviewed: Labs reviewed by me, Image(s) reviewed by me Assessment/Plan Assessment/Plan Acute appendicitis status post diagnostic laparoscopy, midline laparotomy, appendectomy, drainage of right ovarian cyst lysis of adhesions and placement of GWYN drain on 08/02/[address] Duran along with surgeon Dr. Mendoza, patient on Rocephin doxycycline and Flagyl; ID consult by Dr. Paco Almonte appreciated, advised oral doxycycline Flagyl for two weeks after discharge Recent Right ovarian follicular cyst 3 cm status post drainage by occasional babysitter Noncardiac chest pain echocardiogram 60% ejection fraction cardiology consult appreciated History of. preeclampsia Elevated D-dimer: PE ruled out GERD: Pantoprazole and Carafate Start on liquid diet and advance diet as tolerated as per the recommendation of the surgeon Physical therapy ordered KUB x-ray 08-06-24 negative for any acute pathology Time spent 45 minutes Feeling better, ambulating in the bruce way , diet Advanced Cleared for discharge by surgery and OBGYN Plan discussed with: Patient My Orders Orders - DENNIS COLIN MD Procedure Category Date Status Time Regular Diet DIET 08/07/24 Transmitted Dinner Tramadol Hcl (Ultram) PHA 08/08/24 Logged 10:00 Date of Service: Aug 08, 2024 Billing Provider: DENNIS COLIN MD Common Visit Codes: [id number] INP/OBS CARE(HIGH) DENNIS COLIN MD Aug 08, 2024 09:53
[2024-08-08] MEDS ORDERED: traMADol HCL 50 MG TAB PO PRN (10:00)
--- NOTE | 2024-08-08 10:00 | DVHDS2 ---
Discharge Summary Date of Admission Jul 29, 2024 at 17:55 Date of Discharge: Aug 08, 2024 Admitting Diagnosis Right lower quadrant abdominal pain Wounds: Appendicectomy Drainage of the right ovarian cyst Labs/Diagnostic Data: Laboratory Results Test 08/07/24 06:04 08/06/24 07:15 08/05/24 14:39 08/05/24 13:57 Sodium Level 142 mmol/L (136-145) Potassium Level 3.2 mmol/L (3.5-5.1) Chloride Level 107 mmol/L (98-107) Carbon Dioxide Level 24 mmol/L (20-31) Anion Gap 11 (5-15) Blood Urea Nitrogen < 5 mg/dL (9-23) Creatinine 0.55 mg/dL (0.550-1.02) Glomerular Filtration Rate Calc 126 mL/min (>90) BUN/Creatinine Ratio 9.1 (10.0-20.0) Serum Glucose 76 mg/dL (74-106) Calcium Level 9.0 mg/dL (8.7-10.4) White Blood Count 10.0 10^3/uL (4.4-10.8) Red Blood Count 3.09 10^6/uL (4.0-5.20) Hemoglobin 7.7 g/dL (12.2-16.2) Hematocrit 24.1 % (36.0-46.0) Mean Corpuscular Volume 77.9 fL (80.0-100.0) Mean Corpuscular Hemoglobin 25.0 pg (28.0-32.0) Mean Corpuscular Hemoglobin Concent 32.2 g/dL (32.0-36.0) Red Cell Distribution Width 17.9 % (11.8-14.3) Platelet Count 633 10^3/uL (140-450) Mean Platelet Volume 6.4 fL (6.9-10.8) Neutrophils (%) (Auto) 84.3 % (37.0-80.0) Lymphocytes (%) (Auto) 7.8 % (10.0-50.0) Monocytes (%) (Auto) 7.2 % (0.0-12.0) Eosinophils (%) (Auto) 0.7 % (0.0-7.0) Basophils (%) (Auto) 0.0 % (0.0-2.0) Neutrophils # (Auto) 8.4 10 ^3/uL (1.6-8.6) Lymphocytes # (Auto) 0.8 10 ^3/uL (0.4-5.4) Monocytes # (Auto) 0.7 10 ^3/uL (0-1.3) Eosinophils # (Auto) 0.1 10 ^3/uL (0-0.8) Basophils # (Auto) 0 10 ^3/uL (0-0.2) Nucleated Red Blood Cells 0.0 % Total Bilirubin 0.2 mg/dL (0.2-1.0) Aspartate Amino Transferase (AST) 20 U/L (13-40) Alanine Aminotransferase (ALT) 13 U/L (7-40) Alkaline Phosphatase 115 U/L (46-116) Total Protein 6.0 g/dL (5.7-8.2) Albumin 3.6 g/dL (3.2-4.8) Rapid Plasma Reagin Non reactive (Non Reactive) Chlamydia trachomatis (STELLA) Negative (Negative) Neisseria gonorrhoeae (STELLA) Negative (Negative) Magnesium Level 1.8 mg/dL (1.6-2.6) Test 08/04/24 17:48 08/03/24 16:32 08/03/24 14:30 08/03/24 05:32 HIV (1&2) Antibody Negative (Negative) Troponin I High Sensitivity < 3 ng/L (</=34) D-Dimer, Quantitative 8.06 mg/L FEU (0.0-0.49) Hemoglobin A1c < 3.8 % A1C (<5.7) Triglycerides Level 71 mg/dL (< 150) Cholesterol Level 122 mg/dL (< 200) LDL Cholesterol 78 mg/dL (< 100) HDL Cholesterol 28 mg/dL (40-59) Thyroid Stimulating Hormone (TSH) 0.71 uIU/mL (0.55-4.78) Test 08/02/24 05:30 08/02/24 05:25 07/31/24 15:07 07/29/24 10:59 Urine Color Light-yellow (Yellow) Urine Clarity Clear (Clear) Urine pH 6.0 (5.0-9.0) Urine Specific [place] 1.013 (1.001-1.035) Urine Protein Negative (Negative) Urine Ketones 1+ (Negative) Urine Blood Negative /uL (Negative) Urine Nitrite Negative (Negative) Urine Bilirubin Negative (Negative) Urine Urobilinogen Normal mg/dL (Negative) Urine Leukocyte Esterase Trace /uL (Negative) Urine RBC 3 /hpf (0 - 4) Urine Microscopic WBC 6 /HPF (0-5) Urine Squamous Epithelial Cells Few /hpf (<5) Urine Bacteria Few /hpf (None Seen) Urine Mucus Few (None Seen) Urine Glucose Normal mg/dL (Normal) Urine Test Negative (Negative) Prothrombin Time 11.4 sec (9.3-11.8) Prothrombin Time INR 1.08 (0.9-1.15) Activated Partial Thromboplast Time 34.2 SEC (24.5-34.5) Beta HCG, Quantitative 0.5 mIU/mL (1.5-4.2) Erythrocyte Sedimentation Rate 108 mm/hr (0-20) Iron Level 17 ug/dL (50-170) Total Iron Binding Capacity 206 ug/dL (250-425) Percent Iron Saturation 8.3 % (15-50) C-Reactive Protein High Sensitivity 8.14 mg/dL (<1.0) Platelet Estimate Markedly increased Anisocytosis (manual) Slight Microcytosis Slight Lipase 28 U/L (12-53) Other Laboratory Tests 08/07/24 06:04 08/06/24 07:15 Brief Hx & Hospital Course: 29-year-old female delivered a baby about a month ago by came in complaining of right lower quadrant abdominal pain found to be in sepsis secondary to the acute appendicitis underwent diagnostic laparoscopy midline laparotomy appendectomy by surgeon . She also had a right ovarian cyst 3.7 cm drained by director water and waste services Dr. Duran and the patient has a drain in place Blind of intractable nausea and vomiting seen by GI placed on pantoprazole and Carafate echocardiogram 60 percent ejection fraction D-dimer is elevated PE ruled out. Patient made a slow but significant recovery patient was also seen by ID and placed on doxycycline Flagyl and Rocephin. At the time of discharge patient is afebrile stable vital signs white count is normal patient is ambulating cleared for discharge by surgery and heavy forger Discharged home on doxycycline Flagyl tramadol pantoprazole sucralfate. She will follow up with the surgeon and the director water and waste services for drain removal and for the biopsy result Consults/Reason for consult Gynecology Surgeon ID GI Operations or Procedures Appendectomy Drainage of the right ovarian cyst Condition at Discharge: Fair Final Diagnosis/Problems List Acute appendicitis status post diagnostic laparoscopy, midline laparotomy, appendectomy, drainage of right ovarian cyst lysis of adhesions and placement of GWYN drain on 08/02/2024 by director water and waste services Dr Duran along with surgeon Dr. Mendoza, patient on Rocephin doxycycline and Flagyl; ID consult by Dr. Paco Almonte appreciated, advised oral doxycycline Flagyl for two weeks after discharge Recent Right ovarian follicular cyst 3 cm status post drainage by director water and waste services Noncardiac chest pain echocardiogram 60% ejection fraction cardiology consult appreciated History of. preeclampsia Elevated D-dimer: PE ruled out GERD: Pantoprazole and Carafate Discharge Disposition: Home 35 (Time taken for discharge summary 35 minutes) Discharge Statement: "Patient was advised to return to the ER or call 911 if any headaches, dizziness, shortness of breath, chest pain, abdominal pain, bleeding, fevers, or worsening of medical condition. Patient was counseled about treatment plan, medications, possible side effects, patientverbalized understanding. All questions were answered to the best of my ability. This discharge took greater then 30 minutes in planning, reviewing documentation, counseling the patient, and discussing with other team members." ASSESSMENT ASSESSMENT Assessment Date of Service: Aug 08, 2024 Billing Provider: DENNIS COLIN MD Common Visit Codes: [id number] DISCH DAY >30min DENNIS COLIN MD Aug 08, 2024 10:00
[2024-08-08 11:37] VITALS: BP 122/78; PULSE 88; RESP 18; TEMP 98.8; O2SAT 95
[2024-08-08] MEDS ORDERED: IRON SUCROSE COMPLEX 110 ML IV SCH (12:00)
--- NOTE | 2024-08-08 17:05 | DVHPN2 ---
Progress Note Date Seen: Aug 08, 2024 Resident Creating Document: NASEEM MEYER RESIDENT Medical Necessity Reason Pt with a Central, PICC or Fol: No Subjective Review of Systems no other complains. Objective vital signs Vital Sign Date Time Temp Pulse Resp B/P (MAP) Pulse Ox O2 Delivery O2 Flow Rate FiO2 08/08/24 11:37 98.8 88 18 95 08/08/24 09:00 123/72 (89) 08/08/24 08:00 Room Air* 0 21 Total Intake and Output 08/07/24 08/07/24 08/08/24 15:00 23:00 07:00 Intake Total 550 ml 900 ml Balance 550 ml 900 ml medications Current Medications Medications Dose Ordered Sig/Robyn Route Start Time Stop Time Status Last Admin Dose Admin Acetaminophen/ Hydrocodone Bitart 1 tab Q4HPRN PRN PO 07/30/24 11:45 Cancel Ciprofloxacin 200 ml @ 200 mls/hr Q12HR IV 08/04/24 22:00 UNV laboratory and microbiology Laboratory Tests 08/07/24 06:04 08/06/24 07:15 Test 08/07/24 06:04 Range/Units Serum Glucose 76 74-106 mg/dL Microbiology Date/Time Source Procedure Growth Status 08/04/24 10:30 Blood Blood Culture - Preliminary NO GROWTH AFTER 72 HOURS OF INCUBATION. Resulted 07/31/24 18:00 Voided Urine Urine Culture - Final Complete Problem List/Assessment/Plan Problem List/Assessment/Plan Abdominal pain due to acute appendicitis Acute gastritis Right ovarian cyst Abdominal pain Microcytic hypochromic anemia Plan/recommendation Dr Arenas -Advanced diet as per surgical team. Tolerating clear liquid diet. If nausea or vomiting keep her NPO again. -S/P Diagnostic laparoscopy & Midline laparotomy with appendectomy and Drainage of right ovarian cyst. Clear liquid diet. Advance as tolerated. continue current management -continue Protonix 40 mg IV daily -IV antibiotic as per primary care, antibiotic has been changed given patient's continued temperature, elevated WBC count. -advanced diet as per toleration, maintained hydration. -surgery and OBGYN on board. Plan discussed with: Patient, Other (RN) Dietary Evaluation Review Comments: Encourage and monitor PO intake to meet 75% of her needs. Advance to diet as tolerated. Cntinue MVI supplements Expected Outcomes/Goals: Improved medical condition, healed sugical wounds NASEEM MEYER RESIDENT Aug 08, 2024 17:05
--- NOTE | 2024-08-09 23:57 | DVHPN2 ---
Consult Progress Note Date Seen: Aug 08, 2024 Subjective Patient reports: Other (no acute events overnight , tachycardia has resolved ) Objective vital signs Vital Sign Date Time Temp Pulse Resp B/P (MAP) Pulse Ox O2 Delivery O2 Flow Rate FiO2 08/08/24 11:37 98.8 88 18 95 08/08/24 09:00 123/72 (89) 08/08/24 08:00 Room Air* 0 21 Total Intake and Output 08/08/24 08/08/24 08/09/24 15:00 23:00 07:00 Intake Total 100 ml Balance 100 ml medications Current Medications Medications Dose Ordered Sig/Robyn Route Start Time Stop Time Status Last Admin Dose Admin Acetaminophen/ Hydrocodone Bitart 1 tab Q4HPRN PRN PO 07/30/24 11:45 Cancel Ciprofloxacin 200 ml @ 200 mls/hr Q12HR IV 08/04/24 22:00 UNV Physical Exam: General: Appears ill; tachycardic. Neck: Supple. No masses. HEENT: PERRL. Normal lids and conjunctiva. Moist mucous membranes. Oropharynx without lesions, exudates, or excessive erythema. Normal appearance of the external aspects of the nose and ears. Heart: Regular rhythm, tachycardic. No murmur. No lower extremity edema. Lungs: Normal respiratory effort. Clear to auscultation bilaterally. No wheezes. No crackles. Abdomen: Soft. Tender in the right lower quadrant. Non-distended. No masses or abdominal hernia. Msk: No digital cyanosis. Normal strength and tone in all 4 limbs. Skin: Warm and dry, no rashes. Neuro: Alert. No facial droop or slurred speech. Extra-ocular movements intact. Sensation intact to soft touch in all 4 limbs. Psych: Appropriate mood. Full affect. Oriented to person, place, time, and situation laboratory and microbiology Laboratory Tests 08/07/24 06:04 08/06/24 07:15 Test 08/07/24 06:04 Range/Units Serum Glucose 76 74-106 mg/dL Problem List/Assessment/Plan Problems(with codes): (1) Severe sepsis (2) Pelvic mass (3) Pelvic inflammatory disease (4) Laparoscopic surgical procedure converted to open procedure (5) Abdominal distention (6) Right ovarian cyst (7) Gastritis (8) Thrombocytosis (9) Abdominal pain (10) Anemia Problem List/Assessment/Plan ASSESSMENT AND PLAN: ID Problem List: - Acute appendicitis - Right ovarian cyst - Status post section on 07/02/2024 - Possible pelvic inflammatory disease (PID) - Fever - Abdominal pain Assessment This is a female patient with a past medical history of section on 07/02/2024, who presents with abdominal pain and fever. She has experienced abdominal pain multiple times over the last four days. She reports no diarrhea. She is and has another child without any complications. Vital signs showed tachycardia and a fever up to 100.7F. CT abdomen and pelvis revealed findings consistent with acute appendicitis and a right ovarian cyst measuring 3 x 1 x 3 cm involving the right ovary. The patient underwent laparoscopic appendectomy and right ovarian cystectomy. Intraoperative findings included: - Inflamed appendix adhering to the right lower abdominal wall - Right ovarian cyst - Minimal pelvic free fluid, possibly due to ruptured ovarian cyst 08/05: whitecount is 14.2 and patient has minimal drainage 08/06: whitecount is 10 , still tachycardic 08/08: patient appears to be clinically responding to antibiotics Plan: - patient can continue IV antibiotics and can also trasition to oral doxycycline 100 mg 2x a day and Flagyl 500 mg 3x a day when patient is ready for discharge to complete a total of 14 days of antibiotics - recommend patient is monitored for at least 24 hours on oral antibiotics prior to discharge to ensure patient is tolerating them well - follow up on mass pathology results - Continue antibiotics: doxycycline - Monitor vital signs and laboratory results - Follow up on pathology results from surgery - Monitor surgical sites for signs of infection - Consider discharge on oral antibiotics when clinically stable - Arrange follow-up for drain management in approximately two weeks Isolation Precautions: standard Plan discussed with: Other Dietary Evaluation Review Comments: Encourage and monitor PO intake to meet 75% of her needs. Advance to diet as tolerated. Cntinue MVI supplements Expected Outcomes/Goals: Improved medical condition, healed sugical wounds DEBBIE CASE MD Aug 09, 2024 23:57
== END 2024-08-08 12:15 | disposition home or self-care (01) | DRG 224 ==
LOC: ER 10:48 → OVERFLOW 17:55 → EAST 18:01 → TELE-EAST 08-03 14:47
PROVIDERS: ADMIT Family Medicine; ATTEND Family Medicine
PROC: 0DNJ0ZZ Release Appendix, Open Approach (ICD-10-PCS; 2024-08-02)
PROC: 0WJG4ZZ Inspection of Peritoneal Cavity, Percutaneous Endoscopic Approach (ICD-10-PCS; 2024-08-02)
PROC: 0DTJ0ZZ Resection of Appendix, Open Approach (ICD-10-PCS; principal; 2024-08-02 09:05)
PROC: 0U903ZZ Drainage of Right Ovary, Percutaneous Approach (ICD-10-PCS; 2024-08-02 09:05)
PROC: 0D9670Z Drainage of Stomach with Drainage Device, Via Natural or Artificial Opening (ICD-10-PCS; 2024-08-05)
DX: K35.80 Unspecified acute appendicitis (principal); R65.20 Severe sepsis without septic shock; O85 Puerperal sepsis; G89.29 Other chronic pain; K66.0 Peritoneal adhesions (postprocedural) (postinfection); K21.9 Gastro-esophageal reflux disease without esophagitis; N83.01 Follicular cyst of right ovary; K29.00 Acute gastritis without bleeding; E87.6 Hypokalemia; D75.839 Thrombocytosis, unspecified; O90.81 Anemia of the puerperium; O90.89 Other complications of the puerperium, not elsewhere classified; O99.63 Diseases of the digestive system complicating the puerperium; O99.893 Other specified diseases and conditions complicating puerperium; D50.9 Iron deficiency anemia, unspecified; K91.89 Other postprocedural complications and disorders of digestive system; K56.7 Ileus, unspecified; O99.285 Endocrine, nutritional and metabolic diseases complicating the puerperium; Z98.891 History of uterine scar from previous surgery; Z53.31 Laparoscopic surgical procedure converted to open procedure
CPT/HCPCS: 36415; 71045; 71046; 71260; 72195; 74018; 74177; 74181; 76705; 76856; 80048; 80053; 80061; 81001; 81025; 83036; 83540; 83550; 83690; 83735; 84443; 84484; 84702; 85025; 85379; 85610; 85652; 85730; 86141; 86592; 86703; 86850; 86900; 86901; 87040; 87086; 93005; 93306; 93970; 97110; 97116; 97163; 97530; 99291; G0378; J0131; J0330; J0696; J1885; J2003; J2405; J2470; J2704; J3480; J3490